=== PATIENT | female | born 1950 | race Caucasian/White ===

== ENCOUNTER → 2017-09-23 | Outpatient (CLI) | payer MEDICARE ==
--- NOTE | 2017-09-23 15:31 | XR ---
EXAMINATION TYPE: XR chest 2V DATE OF EXAM: 09/23/2017 COMPARISON: 09/16/2016 HISTORY: 67-year-old female cough and congestion for 3 years TECHNIQUE: Frontal and lateral views FINDINGS: The cardiomediastinal silhouette, aorta, and pulmonary vasculature are within normal limits. Mild dif fuse interstitial prominence and mild peribronchial cuffing is unchanged. Lungs and pleural spaces ar e clear. Surgical clips left upper quadrant. Spinal stimulator array centered along the mid thoracic spinal canal. IMPRESSION: Chronic-appearing changes, possible chronic bronchitis/asthma.
== END ==
LOC: CPPFTMAIN 12:05
PROVIDERS: ATTEND Internal Medicine
DX: R05 Cough (principal)
CPT/HCPCS: 71020; 94060; 94726; 94729

== ENCOUNTER → 2018-03-16 | Outpatient (CLI) | payer MEDICARE ==
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
--- NOTE | 2018-03-19 10:57 | MM ---
Reason for exam: screening (asymptomatic). Last mammogram was performed 20 years and 1 month ago. History: Patient is postmenopausal. Family history of breast cancer. Physical Findings: A clinical breast exam by your physician is recommended on an annual basis and results should be correlated with mammographic findings. MG 3D Screening Mammo W/Cad Bilateral CC and MLO view(s) were taken. No prior studies available for comparison. Finding: There is a 7 mm mass in the left breast consistent with lymph node. ASSESSMENT: Benign, BI-RAD 2 RECOMMENDATION: Routine screening mammogram of both breasts in 1 year.
== END | disposition home or self-care (01) ==
LOC: RADMAMWWP 09:33
PROVIDERS: ATTEND Internal Medicine
DX: Z12.31 Encounter for screening mammogram for malignant neoplasm of breast (principal); M85.851 Other specified disorders of bone density and structure, right thigh; Z78.0 Asymptomatic menopausal state
CPT/HCPCS: 77063; 77067; 77080

== ENCOUNTER 2018-04-01 19:49 | Emergency (ER) | payer MEDICARE ==
[2018-04-01 20:02] VITALS: TEMP 98.3
[2018-04-01] MEDS ORDERED: RX INFO: IV CONTRAST WAS GIVEN 1 EACH MISC MISCELLANE PRN (20:45)
[2018-04-01] MEDS ORDERED: MECLIZINE 12.5 MG TAB PO STA (20:46)
[2018-04-01] MEDS ORDERED: METOCLOPRAMIDE 5 MG/ML 2 ML VIAL IVP STA (20:46)
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
[2018-04-01 21:16] LABS: Basophils % (A) 0 %; Eosinophils # (A) 0.3 k/uL (0-0.7); Eosinophils % (A) 4 %; HGB 13.1 gm/dL (11.4-16.0); Lymphocytes # (A) 1.5 k/uL (1.0-4.8); Lymphocytes % (A) 24 %; MCH 32.5 pg (25.0-35.0); MCHC 35.4 g/dL (31.0-37.0); MCV 91.7 fL (80.0-100.0); Mean Platelet Volume 6.7; Monocytes # (A) 0.4 k/uL (0-1.0); Monocytes % (A) 6 %; Neutrophils % (A) 63 %; Platelet Count 262 k/uL (150-450); RBC 4.03 m/uL (3.80-5.40); RDW 12.8 % (11.5-15.5); WBC 6.3 k/uL (3.8-10.6)
[2018-04-01 21:19] LABS: Partial Thromboplastin Time 23.5 sec (22.0-30.0); Prothrombin Time 10.2 sec (9.0-12.0)
[2018-04-01 21:20] LABS: Albumin 4.5 g/dL (3.5-5.0); Calcium 9.5 mg/dL (8.4-10.2); Potassium 4.1 mmol/L (3.5-5.1); Total Bilirubin 0.6 mg/dL (0.2-1.3); Total Protein 7.1 g/dL (6.3-8.2)
[2018-04-01] MEDS ORDERED: SODIUM CHLORIDE 0.9% 500 ML IV STA (21:31)
[2018-04-01 21:51] VITALS: RESP 18
--- NOTE | 2018-04-01 22:35 | CT ---
EXAMINATION TYPE: CT brain wo con DATE OF EXAM: 04/01/2018 COMPARISON: NONE HISTORY: Vertigo. CT DLP: 1051.6 mGycm Automated exposure control for dose reduction was used. FINDINGS: There is mild cerebral cortical atrophy. There is no mass effect nor midline shift. There is no sign of intracranial hemorrhage. The calvarium is intact. IMPRESSION: NEGATIVE CT SCAN OF THE BRAIN. MINIMAL ATROPHY.
--- NOTE | 2018-04-01 22:44 | CT ---
EXAMINATION TYPE: CT angio head neck DATE OF EXAM: 04/01/2018 HISTORY: Vertigo. COMPARISON: NONE CT DLP: 238.1 mGycm. Automated Exposure Control for Dose Reduction was Utilized. TECHNIQUE: CTA scan of the neck and brain is performed with IV Contrast, patient injected with 65 mL of Isovue 370, axial images are obtained, coronal and sagittal reformatted images are reviewed. Thre e-D reconstructed images are created on an independent workstation and reviewed. FINDINGS: There is normal branching pattern of the great vessels on the aortic arch. There is arterial flow in the common internal and external carotid arteries bilaterally. Carotid artery bifurcations appear wid abdelrahman patent. There is arterial flow in both vertebral arteries which are fairly symmetric. There is no evidence of carotid dissection. Great vessels appear widely patent. There is arterial flow in the anterior middle and posterior cerebral arteries. There is arterial flow in the vertebrobasilar artery system. I see no evidence of aneurysm or neovascularity. There is no m ass effect. There is normal contrast opacification of the venous sinuses. There is no evidence of spa sm. I see no sign of hemodynamically significant stenosis. Ventricles of normal size. There is no you dence of any significant cerebral atrophy. The calvarium is intact. CONCLUSION: Normal CT angiogram of the brain. Normal CT angiogram of the neck.
[2018-04-01 23:07] VITALS: BP 136/78; PULSE 61
== END 2018-04-01 23:06 | disposition home or self-care (01) ==
LOC: EC 19:49
DX: R42 Dizziness and giddiness (principal); M79.7 Fibromyalgia; F41.9 Anxiety disorder, unspecified; F32.9 Major depressive disorder, single episode, unspecified; Z86.73 Personal history of transient ischemic attack (TIA), and cerebral infarction without residual deficits; Z79.899 Other long term (current) drug therapy; Z87.891 Personal history of nicotine dependence
CPT/HCPCS: 99284; 96374; 96361; 36415; 93005; 80053; 85025; 85610; 85730; 70496; 70450; 70498; J2765; Q9967

== ENCOUNTER → 2018-06-22 | Outpatient (CLI) | payer MEDICARE ==
--- NOTE | 2018-06-22 10:58 | CT ---
EXAMINATION TYPE: CT brain wo con DATE OF EXAM: 06/22/2018 COMPARISON: 04/01/2019 HISTORY: Headaches CT DLP: 999.80 mGycm Automated exposure control for dose reduction was used. FINDINGS: There is no acute intracranial hemorrhage or midline shift identified. There is diffuse ventricular a nd sulcal prominence consistent with diffuse age-related cerebral atrophy. No suspicious extra-axial fluid collection. There is low-attenuation in the periventricular white matter consistent with chroni c small vessel ischemic change. Punctate old right thalamic lacunar injury is seen on series 3 image 21. Old left cerebellar hemispheric lacunar injury is also seen on image 10. The globes are intact an d the visualized sinuses are clear. Lenses are surgically absent with scleral calcifications identif ied. IMPRESSION: 1. No acute intracranial hemorrhage or midline shift. 2. Mild diffuse age-related cerebral atrophy and scattered areas of hypoattenuation, most commonly on the basis of chronic microangiopathy. Old appearing lacunar injuries are also seen of the right thal amus and left cerebellar hemisphere.
== END | disposition home or self-care (01) ==
LOC: RADCTMAIN 09:14
PROVIDERS: ATTEND Internal Medicine
DX: G31.1 Senile degeneration of brain, not elsewhere classified (principal); I67.9 Cerebrovascular disease, unspecified
CPT/HCPCS: 70450

== ENCOUNTER → 2018-07-16 | Outpatient (CLI) | payer MEDICARE ==
[2018-07-16 09:24] LABS: Cholesterol 194 mg/dL (<200); Glucose 85 mg/dL (74-99); HDL Cholesterol 70 mg/dL (40-60); LDL Cholesterol,Calculated 102 mg/dL (0-99); Triglycerides 112 mg/dL (<150)
[2018-07-16 21:37] LABS: Hemoglobin A1C 4.8 % (4.0-6.0)
== END | disposition home or self-care (01) ==
LOC: LABWHC1 08:48
PROVIDERS: ATTEND Internal Medicine
DX: E78.5 Hyperlipidemia, unspecified (principal); R42 Dizziness and giddiness; R63.1 Polydipsia
CPT/HCPCS: 36415; 80061; 82947; 83036

== ENCOUNTER 2019-06-02 10:40 | Emergency (ER) | payer MEDICARE ==
[2019-06-02] MEDS ORDERED: MECLIZINE 12.5 MG TAB PO STA (11:25)
[2019-06-02] MEDS ORDERED: SODIUM CHLORIDE 0.9% 1,000 ML IV STA (11:25)
[2019-06-02] MEDS ORDERED: diphenhydrAMINE 50 MG/ML 1 ML VIAL IVP STA (11:28)
[2019-06-02] MEDS ORDERED: METOCLOPRAMIDE 5 MG/ML 2 ML VIAL IVP STA (11:28)
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
[2019-06-02 12:14] LABS: Basophils % (A) 0 %; Eosinophils # (A) 0.2 k/uL (0-0.7); Eosinophils % (A) 3 %; HCT 37.8 % (34.0-46.0); HGB 13.4 gm/dL (11.4-16.0); Lymphocytes # (A) 1.2 k/uL (1.0-4.8); Lymphocytes % (A) 25 %; MCH 31.9 pg (25.0-35.0); MCHC 35.6 g/dL (31.0-37.0); MCV 89.7 fL (80.0-100.0); Monocytes # (A) 0.3 k/uL (0-1.0); Monocytes % (A) 7 %; Neutrophils % (A) 62 %; Platelet Count 239 k/uL (150-450); RBC 4.21 m/uL (3.80-5.40); RDW 15.2 % (11.5-15.5); WBC 4.9 k/uL (3.8-10.6)
[2019-06-02 12:22] LABS: ALT 18 U/L (9-52); AST 33 U/L (14-36); African American GFR (CKD) >90 (>60 ml/min/1.73 sqM); Albumin 4.6 g/dL (3.5-5.0); Alkaline Phosphatase 109 U/L (38-126); Anion Gap 11 mmol/L; Blood Urea Nitrogen 14 mg/dL (7-17); Calcium 9.3 mg/dL (8.4-10.2); Carbon Dioxide 23 mmol/L (22-30); Chloride 104 mmol/L (98-107); Glucose 90 mg/dL (74-99); Potassium 3.9 mmol/L (3.5-5.1); Sodium 138 mmol/L (137-145); Total Bilirubin 0.5 mg/dL (0.2-1.3); Total Protein 7.5 g/dL (6.3-8.2)
--- NOTE | 2019-06-02 12:23 | CT ---
EXAMINATION TYPE: CT brain wo con DATE OF EXAM: 06/02/2019 COMPARISON: June 22, 2018 HISTORY: Headache, dizziness CT DLP: 1099.[address] of the brain was performed. The ventricles, basal cisterns and sulci overlying the cerebral convexities demonstrate mild enlargem ent. There is no evidence for intracranial hemorrhage or sulcal effacement. There is decreased attenuation about the periventricular white matter and deep white matter of both c erebral hemispheres, compatible with chronic small vessel ischemia. Differential diagnosis does inclu de demyelination. No mass effects are seen.No midline shift. Osseous calvarium is intact. If symptoms persist consider MRI. IMPRESSION: 1. Age related atrophic and chronic small vessel ischemic change without acute intracranial process s een at this time.
[2019-06-02 12:30] LABS: INR 0.9 (<1.2); Partial Thromboplastin Time 28.1 sec (22.0-30.0); Prothrombin Time 9.8 sec (9.0-12.0)
[2019-06-02 12:31] LABS: Appearance,Urine Clear (Clear); Bacteria,Urine Rare /hpf; Bilirubin,Urine Negative (Negative); Blood,Urine Negative (Negative); Color,Urine Light Yellow; Glucose,Urine (UA) Negative (Negative); Hyaline Casts,Urine 1 /lpf (0-2); Ketones,Urine Negative (Negative); Leukocyte Esterase,Urine Small (Negative); Mucus,Urine Rare /hpf; Nitrite,Urine Negative (Negative); PH, Urine 6.5 (5.0-8.0); Protein,Urine Negative (Negative); RBC,Urine 1 /hpf (0-5); Specific Gravity,Urine 1.008 (1.001-1.035); Squamous Epithelial Cell,Urine <1 /hpf (0-4); Urobilinogen,Urine <2.0 mg/dL (<2.0); WBC,Urine 2 /hpf (0-5)
--- NOTE | 2019-06-02 12:54 | XR ---
EXAMINATION TYPE: XR chest 2V DATE OF EXAM: 06/02/2019 COMPARISON: 09/23/2017 INDICATION: Dizziness and headache TECHNIQUE: Frontal and lateral views of the chest are obtained. FINDINGS: The heart size is normal. The pulmonary vasculature is normal. The lungs are clear. Stimulator leads are within the mid thoracic level. IMPRESSION: 1. No acute pulmonary process.
[2019-06-02 13:23] VITALS: RESP 18; TEMP 97.9
[2019-06-02] MEDS ORDERED: KETOROLAC 30 MG/ML 1 ML VIAL IVP STA (13:35)
[2019-06-02] MEDS ORDERED: ORPHENADRINE 30 MG/ML 2 ML VIAL IVP STA (13:35)
[2019-06-02 15:20] VITALS: BP 138/87; PULSE 91
== END 2019-06-02 15:18 | disposition home or self-care (01) ==
LOC: EC 10:40
DX: G43.909 Migraine, unspecified, not intractable, without status migrainosus (principal); R42 Dizziness and giddiness; R05 Cough; R53.1 Weakness; M79.7 Fibromyalgia; M19.90 Unspecified osteoarthritis, unspecified site; F41.9 Anxiety disorder, unspecified; F32.9 Major depressive disorder, single episode, unspecified; G89.4 Chronic pain syndrome; Z86.73 Personal history of transient ischemic attack (TIA), and cerebral infarction without residual deficits; Z87.828 Personal history of other (healed) physical injury and trauma; Z87.891 Personal history of nicotine dependence; Z90.49 Acquired absence of other specified parts of digestive tract; Z96.642 Presence of left artificial hip joint; Z96.653 Presence of artificial knee joint, bilateral; Z98.51 Tubal ligation status; Z98.890 Other specified postprocedural states; Z79.1 Long term (current) use of non-steroidal anti-inflammatories (NSAID); Z79.899 Other long term (current) drug therapy
CPT/HCPCS: 36415; 93005; 80053; 84484; 85025; 85610; 85730; 81001; 71046; 70450; 99285; 96374; 96375 ×3; 96361; J1200; J2360; J2765; J1885

== ENCOUNTER 2020-03-29 12:54 | Observation (INO) | payer MEDICARE ==
[2020-03-29 13:25] LABS: Basophils # (A) 0.1 k/uL (0-0.2); Basophils % (A) 1 %; Eosinophils # (A) 0.1 k/uL (0-0.7); Eosinophils % (A) 2 %; HCT 41.6 % (34.0-46.0); HGB 14.5 gm/dL (11.4-16.0); Lymphocytes # (A) 1.6 k/uL (1.0-4.8); Lymphocytes % (A) 24 %; MCH 32.2 pg (25.0-35.0); MCHC 34.8 g/dL (31.0-37.0); MCV 92.6 fL (80.0-100.0); Mean Platelet Volume 7.3; Monocytes # (A) 0.4 k/uL (0-1.0); Monocytes % (A) 6 %; Neutrophils # (A) 4.5 k/uL (1.3-7.7); Neutrophils % (A) 66 %; Platelet Count 316 k/uL (150-450); RBC 4.49 m/uL (3.80-5.40); RDW 13.1 % (11.5-15.5); WBC 6.8 k/uL (3.8-10.6)
[2020-03-29 13:28] LABS: Calcium 9.4 mg/dL (8.4-10.2); Magnesium 2.1 mg/dL (1.6-2.3); Potassium 4.6 mmol/L (3.5-5.1); Total Bilirubin 0.5 mg/dL (0.2-1.3); Total Protein 8.3 g/dL (6.3-8.2)
[2020-03-29 13:41] LABS: D-Dimer 0.48 mg/L FEU (<0.60); INR 0.9 (<1.2); Prothrombin Time 9.6 sec (9.0-12.0)
[2020-03-29 13:44] LABS: Partial Thromboplastin Time 21.7 sec (22.0-30.0)
[2020-03-29] MEDS ORDERED: NITROGLYCERIN SL TABS 0.4 MG TAB SUBLINGUAL STA (14:34)
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
--- NOTE | 2020-03-29 15:24 | CT ---
CT CHEST FOR PULMONARY EMBOLISM. EXAMINATION TYPE: CT chest angio for PE DATE OF EXAM: 03/29/2020 INDICATION: CHEST AND BACK PAIN CT DLP: 327.4 mGycm, Automated exposure control for dose reduction was used. CONTRAST: Patient injected with 60 mL of Isovue 370. COMPARISON: None TECHNIQUE: CT of the chest is performed on a spiral scan at 2 mm thick sections. Study is performed with intravenous contrast timed for evaluation for pulmonary embolism. This will limit additional po rtions of the evaluation. 3-D MIP images reconstructed by the technologist are reviewed on the compu ter in the coronal and sagittal planes. FINDINGS: No persistent filling defects are evident to suggest an acute pulmonary embolism. No mediastinal or hilar adenopathy enlarged by CT criteria is evident. The ascending aorta diameter at the level of the main pulmonary artery is 3.7 cm. The main pulmonary artery diameter at the bifur cation is 2.0 cm. Small hiatal hernia is present. Lung windows are clear. Limited CT section through the upper abdomen are unremarkable. IMPRESSIONS: 1. No acute pulmonary embolism.
[2020-03-29] MEDS ORDERED: NITROGLYCERIN-D5W PMX 50 MG in DEXTROSE/WATER 1 250ML.BAG IV ONE (15:47)
[2020-03-29] MEDS ORDERED: ACETAMINOPHEN TAB 325 MG TAB PO STA (15:47)
[2020-03-29] MEDS ORDERED: NALOXONE 0.4 MG/ML 1 ML VIAL IV PRN (15:48)
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
[2020-03-29] MEDS ORDERED: ACETAMINOPHEN TAB 325 MG TAB PO PRN (20:09)
[2020-03-29] MEDS: amLODIPine 5 MG TAB PO SCH (20:20)
[2020-03-29] MEDS: ALPRAZolam 0.5 MG TAB PO SCH (21:32)
[2020-03-29] MEDS: MELOXICAM 7.5 MG TAB PO SCH (21:32)
[2020-03-29] MEDS: PANTOPRAZOLE 40 MG TABLET PO SCH (21:32)
[2020-03-29] MEDS: DULoxetine HCL 60 MG CAPSULE.DR PO SCH (21:32)
[2020-03-29] MEDS: BACLOFEN 10 MG TAB PO PRN (21:34)
[2020-03-29] MEDS: MORPHINE SULFATE 2 MG/ML SYRINGE IVP PRN (23:41)
[2020-03-30] MEDS: MORPHINE SULFATE 2 MG/ML SYRINGE IVP PRN ×4 (03:12→22:15)
[2020-03-30 06:42] LABS: Basophils # (A) 0.1 k/uL (0-0.2); Basophils % (A) 1 %; Eosinophils # (A) 0.2 k/uL (0-0.7); Eosinophils % (A) 4 %; HCT 36.2 % (34.0-46.0); HGB 12.3 gm/dL (11.4-16.0); Lymphocytes # (A) 1.9 k/uL (1.0-4.8); Lymphocytes % (A) 35 %; MCV 94.1 fL (80.0-100.0); Mean Platelet Volume 7.5; Monocytes # (A) 0.4 k/uL (0-1.0); Monocytes % (A) 6 %; Neutrophils # (A) 2.8 k/uL (1.3-7.7); Neutrophils % (A) 51 %; Platelet Count 242 k/uL (150-450); RBC 3.85 m/uL (3.80-5.40); RDW 12.8 % (11.5-15.5); WBC 5.5 k/uL (3.8-10.6)
[2020-03-30 06:57] LABS: Calcium 9.1 mg/dL (8.4-10.2); Potassium 4.4 mmol/L (3.5-5.1)
--- NOTE | 2020-03-30 10:16 | CONS ---
CONSULTATION CHIEF COMPLAINT: Chest pain. Cheri is a 70-year-old lady with history of hypertension, arthritis, chronic pain, who presented to hospital complaining of headache. She has had chronic headache and has seen Dr. Hassan in the outpatient setup. She states that she simply feels fatigued tired and does not feel good. In all this, she also had sharp precordial chest pain that radiated to her back. It was associated with diaphoresis and related exertion mild intensity and seems musculoskeletal. Since being admitted to the hospital, she is feeling better. She had a CTA of the chest that was negative for pulmonary embolism. Her EKG shows sinus rhythm without significant ST-T wave changes. She has had 3 sets of cardiac enzymes that were all negative. PAST MEDICAL HISTORY: Significant for hypertension and GERD. CURRENT MEDICATIONS: Include Xanax, Celebrex, Cymbalta, Norvasc, baclofen, and omeprazole. FAMILY HISTORY: Negative for premature coronary artery disease. SOCIAL HISTORY: Negative for current smoking, ETOH or drug abuse. REVIEW OF SYSTEMS: HEENT is unremarkable. CARDIAC as described above. RESPIRATORY as described above. GI negative. negative. ALLERGY none. SKIN negative. MUSCULOSKELETAL: Significant for arthritis. PSYCHOSOCIAL negative. ENDOCRINE negative. DERM negative. CONSTITUTIONAL negative. ONCOLOGICAL negative. SENIOR ERP CONSULTANT negative. Rest of the system review is not relevant. PHYSICAL EXAMINATION: On exam, patient is comfortable at rest. Vital signs are stable. There is no jugular venous distention. Carotid upstroke is normal. There is no bruit. Chest exam reveals good air entry bilaterally. Heart exam reveals first and second heart sounds. No gallop. No murmur. No rub. Abdomen is soft, nontender. Extremities did not reveal edema. Peripheral pulses are felt. LAB: Show a hemoglobin of 12.3, platelet count is 240. Potassium is 4.4, creatinine is 0.86. ASSESSMENT: 1. Precordial chest pain. 2. Hypertension. 3. Headache. 4. Fibromyalgia. PLAN: The patient ruled out for myocardial infarction. Her chest pain is atypical. I will obtain a 2D echo and if this looks normal, she can be discharged home and I will perform an outpatient stress test on her once the headache resolves. Thank you for giving me the privilege to participate in the care of this pleasant lady. MMODL / IJN: [id number] /
[2020-03-30] MEDS ORDERED: ALPRAZolam 0.5 MG TAB PO PRN (10:50)
--- NOTE | 2020-03-30 11:07 | P.PN ---
Subjective Progress Note Date: 03/30/20 Principal diagnosis: Chest pain Patient was seen and examined. No acute events overnight. Patient reports pressure-like sensation in her chest. Stabbing chest pain now resolved with morphine. Patient reports frontal headache that is slowly getting better after discontinuation of nitroglycerin drip. Patient also reports intense fatigue and lower extremity swelling that has been getting worse over the past few months. She reports worsening anxiety. Patient reports a history of hypothyroidism the past for which she was taking medications many years ago. Objective - Vital Signs Vital signs: Vital Signs Temp 98.1 F 03/30/20 07:45 Pulse 80 03/30/20 07:45 Resp 16 03/30/20 07:45 BP 117/70 03/30/20 07:45 Pulse Ox 96 03/30/20 07:45 Intake & Output 03/29/20 03/30/20 03/30/20 18:59 06:59 18:59 Intake Total 310 240 Balance 310 240 Weight 90.265 kg 90.3 kg Intake: IV 10 Invasive Line 2 10 Oral 300 240 Other: Voiding Method Toilet Toilet # Voids 0 1 1 # Bowel Movements 0 - Exam General: [non toxic], [no distress], [appears at stated age] Derm: [warm], [dry] Head: [atraumatic], [normocephalic], [symmetric] Eyes: [EOMI], [no lid lag], [anicteric sclera] Mouth: [no lip lesion], [mucus membranes moist] Cardiovascular: [S1S2 reg], [no murmur], [positive DP pulse bilateral], Lungs: [CTA bilateral], [no rhonchi, no rales] , [no accessory muscle use] Abdominal: [soft], [ nontender to palpation], [no guarding], [no appreciable organomegaly] Ext: [no gross muscle atrophy], [no edema], [no contractures] Neuro: [no focal neuro deficits] Psych: [Alert], [oriented], [appropriate affect] - Labs CBC & Chem 7: 03/30/20 06:04 03/30/20 06:04 Labs: Abnormal Lab Results - Last 24 Hours (Table) 03/29/20 03/29/20 03/30/20 Range/Units 13:11 13:11 06:04 APTT 21.7 L (22.0-30.0) sec Sodium 135 L 132 L (137-145) mmol/L BUN 22 H 23 H (7-17) mg/dL Total Protein 8.3 H (6.3-8.2) g/dL Assessment and Plan Assessment: Chest pain, atypical, rule out acute coronary syndrome Fatigue History of TIA Hypertension Fibromyalgia Anxiety and depression Obesity Troponin less than 0.012 x3 with EKG showing normal sinus rhythm. CT chest ruled out PE. Atypical for cardiac pain. BETSY risk score of 2. Plans: Nitroglycerin drip discontinued. ACS ruled out. Cardiac diet. Follow-up echocardiogram. Telemetry monitoring. Cardiology recommended stress test outpatient setting. In the setting of fibromyalgia. Exertional. Also history of hypothyroidism. Plans: Follow echocardiogram. Follow TSH. Not on aspirin due to history of GI bleed. Plans: Follow lipid panel. Follow A1c. BP 117/70. Plans: Continue amlodipine. Monitor vitals, adjust medications as necessary. Plans: Continue Cymbalta and baclofen as needed. Plans: Increase Xanax dosing to 3 times a day as needed. Plans: Patient would benefit from a structured weight loss program. [Patient with continued chest pain. Plans for echocardiogram. Continue telemetry monitoring. She is pending clinical improvement. Likely DC in 1-2 days.]
[2020-03-30 11:51] LABS: Cholesterol 170 mg/dL (<200); HDL Cholesterol 56 mg/dL (40-60); LDL Cholesterol,Calculated 83 mg/dL (0-99); Triglycerides 154 mg/dL (<150)
[2020-03-30 12:20] LABS: Appearance,Urine Clear (Clear); Bacteria,Urine Rare /hpf; Bilirubin,Urine Negative (Negative); Blood,Urine Negative (Negative); Color,Urine Light Yellow; Glucose,Urine (UA) Negative (Negative); Ketones,Urine Negative (Negative); Leukocyte Esterase,Urine Small (Negative); Nitrite,Urine Negative (Negative); Protein,Urine Negative (Negative); RBC,Urine 1 /hpf (0-5); Specific Gravity,Urine 1.013 (1.001-1.035); Squamous Epithelial Cell,Urine <1 /hpf (0-4); Urobilinogen,Urine <2.0 mg/dL (<2.0); WBC,Urine 1 /hpf (0-5)
[2020-03-30] MEDS: ALPRAZolam 0.5 MG TAB PO SCH (21:15)
[2020-03-30] MEDS: DULoxetine HCL 60 MG CAPSULE.DR PO SCH (21:16)
[2020-03-30] MEDS: PANTOPRAZOLE 40 MG TABLET PO SCH (21:16)
[2020-03-30] MEDS: MELOXICAM 7.5 MG TAB PO SCH (21:16)
[2020-03-30] MEDS: amLODIPine 5 MG TAB PO SCH (21:16)
[2020-03-30] MEDS: BACLOFEN 10 MG TAB PO PRN (21:18)
[2020-03-30 22:33] LABS: Hemoglobin A1C 5.2 % (4.0-6.0)
[2020-03-30 23:16] VITALS: RESP 16; TEMP 98
[2020-03-31 08:56] VITALS: BP 136/95; PULSE 94
--- NOTE | 2020-03-31 10:43 | ECHOF ---
Referral Reason: MEASUREMENTS -------- HEIGHT: 170.2 cm WEIGHT: 90.3 kg BP: 104/68 RVIDd: 2.4 cm (< 3.3) IVSd: 1.0 cm (0.6 - 1.1) LVIDd: 4.0 cm (3.9 - 5.3) LVPWd: 1.0 cm (0.6 - 1.1) IVSs: 1.8 cm LVIDs: 2.4 cm LVPWs: 1.5 cm LA Diam: 3.7 cm (2.7 - 3.8) LAESV Index (A-L): 26.30 ml/m Ao Diam: 3.2 cm (2.0 - 3.7) AV Cusp: 2.1 cm (1.5 - 2.6) MV EXCURSION: 17.007 mm (> 18.000) MV EF SLOPE: 39 mm/s (70 - 150) EPSS: 0.9 cm MV E Raffi: 0.90 m/s MV DecT: 179 ms MV A Raffi: 0.75 m/s MV E/A Ratio: 1.20 AR PHT: 499 ms RAP: 5.00 mmHg RVSP: 24.56 mmHg FINDINGS -------- Sinus rhythm. This was a technically adequate study. The left ventricular size is normal. Left ventricular wall thickness is normal. Overall left vent ricular systolic function is normal with, an EF between 60 - 65 %. The right ventricle is normal in size. Normal LA size by volume 22+/-6 ml/m2. The right atrium is normal in size. Interatrial and interventricular septum intact. The aortic valve is trileaflet and appears structurally normal. The mitral valve is normal. Mild tricuspid regurgitation present. Right ventricular systolic pressure is normal at < 35 mmHg. The pulmonic valve was not well visualized. The aortic root size is normal. Normal inferior vena cava with normal inspiratory collapse consistent with estimated right atrial pre ssure of 5 mmHg. There is no pericardial effusion. CONCLUSIONS -------- 1. Sinus rhythm. 2. This was a technically adequate study. 3. The left ventricular size is normal. 4. Left ventricular wall thickness is normal. 5. Overall left ventricular systolic function is normal with, an EF between 60 - 65 %. 6. The right ventricle is normal in size. 7. Normal LA size by volume 22+/-6 ml/m2. 8. The right atrium is normal in size. 9. Interatrial and interventricular septum intact. 10. The aortic valve is trileaflet and appears structurally normal. 11. The mitral valve is normal. 12. Mild tricuspid regurgitation present. 13. Right ventricular systolic pressure is normal at < 35 mmHg. 14. The pulmonic valve was not well visualized. 15. The aortic root size is normal. 16. Normal inferior vena cava with normal inspiratory collapse consistent with estimated right atrial pressure of 5 mmHg. 17. There is no pericardial effusion. TRIMMER HAND: Beth Miller RDCS
--- NOTE | 2020-03-31 11:08 | P.PN ---
Subjective Progress Note Date: 03/31/20 This is a 70-year-old female with documented history of hypertension, arthritis, chronic pain, who presented to the hospital with symptoms of chest discomfort, she also had significant headaches. She was seen in consultation yesterday by Dr. Simpson, an echocardiogram with Doppler study was ordered, revealed a normal left ventricular systolic function. Blood pressure 136/90, heart rate in the 60s, 95% on room air. She still complains of a mild headache this morning, denies any chest discomfort. Objective - Vital Signs Vital signs: Vital Signs Temp 98.0 F 03/31/20 04:00 Pulse 94 03/31/20 08:00 Resp 16 03/31/20 08:00 BP 136/95 03/31/20 08:00 Pulse Ox 95 03/31/20 04:00 Intake & Output 03/30/20 03/31/20 03/31/20 18:59 06:59 18:59 Intake Total 980 310 240 Output Total 111 Balance 869 310 240 Weight 90.1 kg Intake: IV 10 Invasive Line 3 10 Intake, IV Titration 100 Amount cefTRIAXone 1 gm In 100 Sodium Chloride 0.9% 50 ml @ 100 mls/hr IVPB ONCE STA Rx#:[id number] Oral 880 300 240 Output: Post Void Residual 111 Other: Voiding Method Toilet Toilet # Voids 1 1 1 # Bowel Movements 0 0 - Exam PHYSICAL EXAMINATION: GENERAL: 70-year-old female in no acute distress at the time of my examination HEENT: Head is atraumatic, normocephalic. Pupils equal, round. Sclera anicteric. Conjunctiva are clear. Mucous membranes of the mouth are moist. Neck is supple. There is no elevated jugular venous pressure. No carotid bruit is heard. Does complain of mild headache this morning. HEART EXAMINATION: Heart S1, S2 normal. No murmur or gallop heard. CHEST EXAMINATION: Lungs are clear to auscultation and precussion. No chest wall tenderness is noted on palpation or with deep breathing. ABDOMEN: Soft, nontender. Bowel sounds are heard. No organomegaly noted. EXTREMITIES: 2+ peripheral pulses with no evidence of peripheral edema and no calf tenderness noted. NEUROLOGIC patient is awake, alert and oriented 3 . . - Labs CBC & Chem 7: 03/30/20 06:04 03/30/20 06:04 Labs: Abnormal Lab Results - Last 24 Hours (Table) 03/30/20 03/30/20 Range/Units 06:04 11:40 Triglycerides 154 H (<150) mg/dL Ur Leukocyte Esterase Small H (Negative) Urine Bacteria Rare H (None) /hpf Assessment and Plan Plan: Assessment and plan #1 precordial chest pain, negative troponins 3. EKG did not reveal any acute changes. Echocardiogram with Doppler study revealed a normal left ventricular systolic function. #2 hypertension #3 headache #4 fibromyalgia Plan Echocardiogram with Doppler study revealed a normal left ventricular systolic function. From cardiology's perspective, the patient may be able to be discharged home, follow-up in the office as an outpatient, outpatient stress testing once the headache has resolved. DNP note has been reviewed, I agree with a documented findings and plan of care. Patient was seen and examined.
--- NOTE | 2020-03-31 11:50 | P.DS ---
Providers Date of admission: 03/29/20 15:48 Expected date of discharge: 03/31/20 Attending physician: Catalina Gasca MD Consults: 03/29/20 15:49 Consult Physician Urgent Consulting Provider: [facility] Consult Reason/Comments: acute chest pain, possible acs Do you want consulting provider notified?: Yes Primary care physician: [facility] Course: 70-year-old female with PMH of hypertension presents the ED for chest pain. Patient states that she was eating dinner last night when she experienced the sudden onset of chest pain. Chest pain was midsternal, sharp and stabbing in nature, radiating through the back into the left shoulder blade. Patient reports the pain was constant. The pain was associated with some shortness of breath. She denies any diaphoresis, nausea or vomiting or palpitations. When the pain persisted into this morning, this prompted the patient to come to ED. She was given nitroglycerin by EMS which improved her pain. Patient currently reports headache that started in the ED, states that this could be related to nitroglycerin drip. Patient also reports swelling in her lower extremities, left greater than right. She denies any fever or chills, cough, changes in urination or bowel habits. No changes in appetite or weight. She denies any dizziness, numbness/weakness/tingling of the extremities. In the ED, her vital signs were stable. CBC was unremarkable. INR was 0.9. CMP showed sodium of 135, BUN 22. Troponin was less than 0.012, EKG showing normal sinus rhythm. Lipase was negative. CTA chest rules out PE or dissection. Patient is admitted for chest pain, rule out acute coronary syndrome, cardiology consultation. Troponin was less than 0.0123 with EKG showing normal sinus rhythm. Her BETSY risk score was 2. ACS was ruled out. Nitroglycerin drip was discontinued the following day. Cardiology was consulted and recommended echocardiogram. Echocardiogram was within normal limits. Cardiology recommended outpatient follow-up for possible stress test. Patient complained of fatigue which could have been related to her fibromyalgia. TSH was within normal limits. Lipid panel showed elevated triglyceride of 154. Otherwise, her home medications were resumed. Urinalysis was done which showed small leukocyte esterase and 1 WBC. Patient denied any dysuria or abdominal discomfort during hospitalization. Patient was seen and examined. No acute events overnight. Patient reports complete resolution of her chest pain. She denies any chest pain, shortness breath or palpitations. No nausea or vomiting. No fever or chills. General: [non toxic], [no distress], [appears at stated age] Derm: [warm], [dry] Head: [atraumatic], [normocephalic], [symmetric] Eyes: [EOMI], [no lid lag], [anicteric sclera] Mouth: [no lip lesion], [mucus membranes moist] Cardiovascular: [S1S2 reg], [no murmur], [positive DP pulse bilateral], Lungs: [CTA bilateral], [no rhonchi, no rales] , [no accessory muscle use] Abdominal: [soft], [ nontender to palpation], [no guarding], [no appreciable organomegaly] Ext: [no gross muscle atrophy], [no edema], [no contractures] Neuro: [no focal neuro deficits] Psych: [Alert], [oriented], [appropriate affect] Chest pain, atypical, rule out acute coronary syndrome Fatigue History of TIA Hypertension Fibromyalgia Anxiety and depression Obesity Troponin less than 0.012 x3 with EKG showing normal sinus rhythm. CT chest ruled out PE. Atypical for cardiac pain. BETSY risk score of 2. Echocardiogram within normal limits. Plans: Nitroglycerin drip discontinued. ACS ruled out. Cardiac diet. Telemetry monitoring. Cardiology recommended stress test outpatient setting. In the setting of fibromyalgia. Exertional. Also history of hypothyroidism. TSH within normal limits. Plans: Follow-up with PCP. Not on aspirin due to history of GI bleed. A1c within normal limits. Lipid panel shows elevated triglyceride of 154. Plans: Follow-up with PCP. BP 136/95. Plans: Continue amlodipine. Monitor vitals, adjust medications as necessary. Plans: Continue Cymbalta and baclofen as needed. Plans: Continue Xanax at home dose. Plans: Patient would benefit from a structured weight loss program. [Patient has complete resolution of chest pain. ACS ruled out. Echocardiogram within normal limits. Cardiology cleared for discharge. Follow-up with PCP within 2 days of discharge. Plans for outpatient stress test, to be scheduled by PCP.] Pertinent Studies: Chest CTA, echocardiogram Patient Condition at Discharge: Stable Plan - Discharge Summary Discharge Rx Participant: No New Discharge Prescriptions: New ALPRAZolam [Xanax] 0.5 mg PO HS #30 tab Continue DULoxetine HCL [Cymbalta] 60 mg PO HS Celecoxib [CeleBREX] 200 mg PO HS Baclofen 10 mg PO BID PRN PRN Reason: Muscle Spasm amLODIPine [Norvasc] 5 mg PO HS ALPRAZolam [Xanax] 0.5 mg PO HS Omeprazole 20 mg PO HS Discharge Medication List DULoxetine HCL [Cymbalta] 60 mg PO HS 09/18/16 [History] Celecoxib [CeleBREX] 200 mg PO HS 04/01/18 [History] ALPRAZolam [Xanax] 0.5 mg PO HS 03/29/20 [History] Baclofen 10 mg PO BID PRN 03/29/20 [History] Omeprazole 20 mg PO HS 03/29/20 [History] amLODIPine [Norvasc] 5 mg PO HS 03/29/20 [History] ALPRAZolam [Xanax] 0.5 mg PO HS #30 tab 03/31/20 [Rx] Follow up Appointment(s)/Referral(s): John Hogue MD [Primary Care Provider] - 1-2 days Activity/Diet/Wound Care/Special Instructions: FU PCP within 3 days of DC. Note for PCP: Order stress test Echocardiogram within normal limits. Discharge Disposition: HOME SELF-CARE
== END 2020-03-31 12:35 | disposition home or self-care (01) ==
LOC: EC 12:54 → 3SCARD 15:48
PROVIDERS: ADMIT Family Medicine; ATTEND Family Medicine
DX: R07.2 Precordial pain (principal); G43.909 Migraine, unspecified, not intractable, without status migrainosus; R61 Generalized hyperhidrosis; I10 Essential (primary) hypertension; K21.9 Gastro-esophageal reflux disease without esophagitis; R53.83 Other fatigue; M79.89 Other specified soft tissue disorders; I69.354 Hemiplegia and hemiparesis following cerebral infarction affecting left non-dominant side; M79.7 Fibromyalgia; F41.9 Anxiety disorder, unspecified; F32.9 Major depressive disorder, single episode, unspecified; E03.9 Hypothyroidism, unspecified; M19.90 Unspecified osteoarthritis, unspecified site; G89.4 Chronic pain syndrome; E66.9 Obesity, unspecified; Z68.31 Body mass index [BMI] 31.0-31.9, adult; Z98.890 Other specified postprocedural states; Z90.49 Acquired absence of other specified parts of digestive tract; Z98.51 Tubal ligation status; Z96.653 Presence of artificial knee joint, bilateral; Z96.642 Presence of left artificial hip joint; Z98.49 Cataract extraction status, unspecified eye; Z98.1 Arthrodesis status; Z96.82 Presence of neurostimulator; Z87.891 Personal history of nicotine dependence; F40.240 Claustrophobia; Z82.0 Family history of epilepsy and other diseases of the nervous system; Z83.3 Family history of diabetes mellitus; Z82.49 Family history of ischemic heart disease and other diseases of the circulatory system; Z83.6 Family history of other diseases of the respiratory system; Z84.1 Family history of disorders of kidney and ureter; Z83.518 Family history of other specified eye disorder; Z80.8 Family history of malignant neoplasm of other organs or systems; Z79.1 Long term (current) use of non-steroidal anti-inflammatories (NSAID); Z79.899 Other long term (current) drug therapy
CPT/HCPCS: 96376; 96366; 96375 ×2; 96365; 99291; 36415; 93005; 93306; 85379; 80061; 80053; 80048; 84443; 83690; 83735; 84484 ×2; 85025 ×2; 85610; 85730; 81001; 83036; 87635; 71275; G0378 ×3; J0696; J2270 ×2; Q9967

== ENCOUNTER → 2020-09-20 | Outpatient (CLI) | payer MEDICARE ==
[2020-09-20 13:16] LABS: Basophils # (A) 0.1 k/uL (0-0.2); Basophils % (A) 1 %; Eosinophils # (A) 0.3 k/uL (0-0.7); Eosinophils % (A) 5 %; HGB 14.3 gm/dL (11.4-16.0); Lymphocytes # (A) 1.3 k/uL (1.0-4.8); Lymphocytes % (A) 25 %; MCH 31.3 pg (25.0-35.0); MCHC 32.5 g/dL (31.0-37.0); MCV 96.2 fL (80.0-100.0); Mean Platelet Volume 7.5; Monocytes # (A) 0.4 k/uL (0-1.0); Monocytes % (A) 7 %; Neutrophils # (A) 3.2 k/uL (1.3-7.7); Neutrophils % (A) 60 %; Platelet Count 286 k/uL (150-450); RBC 4.57 m/uL (3.80-5.40); RDW 12.9 % (11.5-15.5); WBC 5.3 k/uL (3.8-10.6)
[2020-09-20 21:57] LABS: Albumin 4.7 g/dL (3.80-4.90); Albumin/Globulin Ratio 1.88 (1.60-3.17); Anion Gap 10.2 mmol/L (4.00-12.00); Calcium 9.5 mg/dL (8.7-10.3); Carbon Dioxide 23.8 mmol/L (21.6-31.8); Chol/HDL Ratio 2.68; Globulin 2.5 g/dL (1.6-3.3); LDL Cholesterol,Calculated 90.4 mg/dL (0.0-131.0); Non-African American GFR(CKD) 63.9 (60.0-200.0); Potassium 4.6 mmol/L (3.5-5.5); Total Bilirubin 0.7 mg/dL (0.2-1.2); Total Protein 7.2 g/dL (6.2-8.2); VLDL Calculation 20.6 mg/dL (5.00-40.00)
== END | disposition home or self-care (01) ==
LOC: LABWHC1 10:58
PROVIDERS: ATTEND Family Medicine
DX: I10 Essential (primary) hypertension (principal); F41.9 Anxiety disorder, unspecified; M79.7 Fibromyalgia
CPT/HCPCS: 36415; 80053; 80061; 85025

== ENCOUNTER → 2020-10-25 | Outpatient (CLI) | payer MEDICARE ==
[2020-10-25 22:08] LABS: Ferritin 42.7 ng/mL (10.0-291.0)
== END | disposition home or self-care (01) ==
LOC: LABWHC1 11:30
PROVIDERS: ATTEND Psychiatry & Neurology Neurology
DX: E61.1 Iron deficiency (principal); G25.81 Restless legs syndrome
CPT/HCPCS: 36415; 82728; 83540

== ENCOUNTER → 2021-01-18 | Outpatient (CLI) | payer MEDICARE ==
--- NOTE | 2021-01-18 13:45 | XR ---
EXAMINATION TYPE: XR chest 2V DATE OF EXAM: 01/18/2021 COMPARISON: Chest x-ray June 02, 2019 HISTORY: hx of covid pneumonia in nov. Shortness of breath on walking. TECHNIQUE: Frontal and lateral views of the chest are obtained. FINDINGS: There is mild chronic emphysematous and parenchymal changes bilaterally without suspicious new focal air space opacity, pleural effusion, or pneumothorax seen. The cardiac silhouette size is stable areas within normal limits. Spinal stimulator device in the mid to lower thoracic spinal dayanna l redemonstrated. Surgical clips epigastric region redemonstrated. Cholecystectomy clips partially im aged on lateral view. IMPRESSION: Chronic changes without acute pulmonary process.
[2021-01-18 23:39] LABS: Basophils # (A) 0.04 X 10*3/uL (0.00-0.10); Basophils % (A) 0.8 %; Eosinophils # (A) 0.14 X 10*3/uL (0.04-0.35); Eosinophils % (A) 2.6 %; HCT 34.2 % (37.2-46.3); HGB 11.8 g/dL (12.0-15.0); Lymphocytes # (A) 1.41 X 10*3/uL (0.90-5.00); Lymphocytes % (A) 26.6 %; MCH 32.2 pg (27.0-32.0); MCHC 34.5 g/dL (32.0-37.0); MCV 93.4 fL (80.0-97.0); Mean Platelet Volume 9.7 fL (9.5-12.2); Monocytes # (A) 0.36 X 10*3/uL (0.20-1.00); Monocytes % (A) 6.8 %; Neutrophils # (A) 3.33 X 10*3/uL (1.80-7.70); Neutrophils % (A) 62.8 %; Platelet Count 339 X 10*3/uL (140-440); RBC 3.66 X 10*6/uL (4.10-5.20); RDW 12.7 % (11.5-14.5)
[2021-01-19 10:00] LABS: African American GFR (CKD) 65.2 (60.0-200.0); Albumin 4.7 g/dL (3.80-4.90); Albumin/Globulin Ratio 1.96 (1.60-3.17); Anion Gap 12.1 mmol/L (4.00-12.00); Calcium 9.2 mg/dL (8.7-10.3); Carbon Dioxide 19.9 mmol/L (21.6-31.8); Globulin 2.4 g/dL (1.6-3.3); Non-African American GFR(CKD) 56.2 (60.0-200.0); Potassium 4.8 mmol/L (3.5-5.5); Total Bilirubin 0.5 mg/dL (0.2-1.2); Total Protein 7.1 g/dL (6.2-8.2)
== END | disposition home or self-care (01) ==
LOC: LABWHC1 13:01
PROVIDERS: ATTEND Family Medicine
DX: R06.02 Shortness of breath (principal); Z86.16 Personal history of COVID-19
CPT/HCPCS: 36415; 71046; 80053; 85025

== ENCOUNTER → 2021-02-07 | Outpatient (CLI) | payer MEDICARE ==
[~2021-02-07] MED LIST: DOBUTamine DRIP for NUC MED 500 MG in DEXTROSE/WATER 1 250ML.BAG IV PRN
--- NOTE | 2021-02-07 11:11 | P.STRESS ---
- Stress Test Note Stress Test Results/Findings: Exam Performed: dobutamine stress echo Exam Date: 02/07/21 Reason for Exam: Dyspnea Height: 5 ft 7 in Weight: 81.82 kg Protocol: Dobutamine stress echo Stage: IV Duration of Exercise: 11:23 Resting Heart Rate: 85 Resting Blood Pressure: 110/65 Maximum Achieved Heart Rate: 127 Maximum Achieved Blood Pressure: 116/63 85% PMHR: 126 100% PMHR: 148 METS: Technologist Comment: Stress Test Results/Findings: This is a 71-year-old female with history of hypertension and CVA being evaluated for symptoms of chest pain and shortness of breath. Stress data: Baseline EKG showed sinus rhythm with normal IN interval and QRS duration. Blood pressure at rest is 110/65 with pulse rate of 85. A standard dose of dobutamine was initiated at 10 mics and was titrated to maximum 40 mics. The maximum heart rate of 127. Blood pressure dropped to 86/61, but slowly came back to 104/55 into 6 minutes of post exercise period. Patient did not experience any chest pain. EKGs taken during and after the dobutamine infusion did not reveal any changes of ischemia. Echo data: Baseline echo images showed normal wall motion and thickening. Exercise echo images set at low dose and high dose dobutamine showed progressive augmentation of the wall motion and thickening without any segmental wall motion defects. Final impression: #1. Negative dobutamine stress test #2. Negative dobutamine stress echo.
--- NOTE | 2021-02-09 10:19 | EST ---
Stress Test Results/Findings: Exam Performed: dobutamine stress echo Exam Date: 02/07/21 Reason for Exam: Dyspnea Height: 5 ft 7 in Weight: 81.82 kg Protocol: Dobutamine stress echo Stage: IV Duration of Exercise: 11:23 Resting Heart Rate: 85 Resting Blood Pressure: 110/65 Maximum Achieved Heart Rate: 127 Maximum Achieved Blood Pressure: 116/63 85% PMHR: 126 100% PMHR: 148 METS: Technologist Comment: Stress Test Results/Findings: This is a 71-year-old female with history of hypertension and CVA being evaluated for symptoms of chest pain and shortness of breath. Stress data: Baseline EKG showed sinus rhythm with normal W[place] interval and QRS duration. Blood pressure at rest is 110/65 with pulse rate of 85. A standard dose of dobutamine was initiated at 10 mics and was titrated to maximum 40 mics. The maximum heart rate of 127. Blood pressure dropped to 86/61, but slowly came back to 104/55 into 6 minutes of post exercise period. Patient did not experience any chest pain. EKGs taken during and after the dobutamine infusion did not reveal any changes of ischemia. Echo data: Baseline echo images showed normal wall motion and thickening. Exercise echo images set at low dose and high dose dobutamine showed progressive augmentation of the wall motion and thickening without any segmental wall motion defects. Final impression: #1. Negative dobutamine stress test #2. Negative dobutamine stress echo. [facility]
== END | disposition home or self-care (01) ==
LOC: RADNMMAIN 09:01
PROVIDERS: ATTEND Family Medicine
DX: R06.02 Shortness of breath (principal); I10 Essential (primary) hypertension
CPT/HCPCS: 93351

== ENCOUNTER 2021-03-08 10:37 | Day surgery (SDC) | payer MEDICARE ==
[2021-03-05 14:07] VITALS: BMI 28.1
[~2021-03-08 10:37] MED LIST changes: -DOBUTamine DRIP for NUC MED 500 MG in DEXTROSE/WATER 1 250ML.BAG IV PRN; +LACTATED RINGERS 1,000 ML IV SCH
[2021-03-08 11:48] VITALS: TEMP 97.8
[2021-03-08] MEDS ORDERED: LACTATED RINGERS 1,000 ML IV ONE (11:48)
[2021-03-08] MEDS ORDERED: GLUCAGON 1 MG/ML VIAL ONE (12:42)
[2021-03-08] MEDS ORDERED: PROPOFOL 10 MG/ML 20 ML VIAL IV ONE (12:42)
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
--- NOTE | 2021-03-08 12:57 | P.OP ---
Date of Procedure: 03/08/21 Preoperative Diagnosis: Screening colonoscopy Postoperative Diagnosis: Diverticulosis Poor colon prep Procedure(s) Performed: Colonoscopy Anesthesia: MAC Surgeon: Tyrel Crews Pathology: none sent Condition: stable Disposition: PACU Description of Procedure: Patient's placed on the endoscopy table in the lateral position. She received IV sedation. Digital rectal exam performed which revealed no abnormalities. Flexible colonoscope was then placed the patient's anus and passed with colon. Scope was placed level of the transverse colon. There was very very poor colon prep. A large amount of liquid stool was in the colon. This point scope withdrawn. The distal transverse colon appeared normal. In the descending and sigmoid colon there is extensive diverticular changes. Scope was brought back the rectum this appeared normal. The view of the mucosa was limited due to the poor prep. Patient top she will was sent to recovery room stable condition.
[2021-03-08 13:19] VITALS: BP 133/81; PULSE 89; RESP 18
== END 2021-03-08 13:33 | disposition home or self-care (01) ==
LOC: ORWHC2ENDO 10:37
PROVIDERS: ATTEND Surgery
DX: Z12.11 Encounter for screening for malignant neoplasm of colon (principal); K57.30 Diverticulosis of large intestine without perforation or abscess without bleeding; M79.7 Fibromyalgia; K21.9 Gastro-esophageal reflux disease without esophagitis; I10 Essential (primary) hypertension; M19.90 Unspecified osteoarthritis, unspecified site; I69.354 Hemiplegia and hemiparesis following cerebral infarction affecting left non-dominant side; G43.909 Migraine, unspecified, not intractable, without status migrainosus; G89.4 Chronic pain syndrome; Z90.89 Acquired absence of other organs; Z98.890 Other specified postprocedural states; Z90.49 Acquired absence of other specified parts of digestive tract; Z98.51 Tubal ligation status; Z96.642 Presence of left artificial hip joint; Z96.653 Presence of artificial knee joint, bilateral; Z98.42 Cataract extraction status, left eye; Z98.1 Arthrodesis status; Z96.82 Presence of neurostimulator; F40.240 Claustrophobia; Z87.891 Personal history of nicotine dependence; Z82.0 Family history of epilepsy and other diseases of the nervous system; Z82.5 Family history of asthma and other chronic lower respiratory diseases; Z83.3 Family history of diabetes mellitus; Z82.49 Family history of ischemic heart disease and other diseases of the circulatory system; Z84.1 Family history of disorders of kidney and ureter; Z83.518 Family history of other specified eye disorder; Z80.8 Family history of malignant neoplasm of other organs or systems; Z79.899 Other long term (current) drug therapy; Z79.1 Long term (current) use of non-steroidal anti-inflammatories (NSAID)
CPT/HCPCS: J1610; J2704; G0121; 45378

== ENCOUNTER 2021-06-22 09:44 | Day surgery (SDC) | payer MEDICARE ==
[2021-06-18 11:57] VITALS: BMI 29.7
[2021-06-22 10:36] VITALS: RESP 16; TEMP 97.3
[2021-06-22] MEDS ORDERED: LACTATED RINGERS 1,000 ML IV ONE (10:40)
[2021-06-22] MEDS ORDERED: LIDOCAINE 1% (10MG/ML) FOR IV START INTRADERMA ONE (10:40)
[2021-06-22] MEDS ORDERED: LIDOCAINE 1% INJ 10MG/ML (20 ML MDV) ONE (11:48)
[2021-06-22] MEDS ORDERED: PROPOFOL 10 MG/ML 20 ML VIAL IV ONE (11:48)
--- NOTE | 2021-06-22 11:53 | P.GSHP ---
History of Present Illness H&P Date: 06/22/21 Chief Complaint: Dysphagia This a 71-year-old female who presents today for EGD. She's had issues with dysphagia. 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, LT LEG HAD BEEN WEAK EVER SINCE 1995, UNABLE TO BALANCE ON LT LEG, MIGRAINES,CHRONIC PAIN SYNDROME, COVID 11/2020, SOB with exertion, gout, restless leg syndrome, History of Any Multi-Drug Resistant Organisms: None Reported Past Surgical History: Appendectomy, Back Surgery, Bladder Surgery, Cholecystectomy, Hernia Repair, Joint Replacement, Orthopedic Surgery, Tonsillectomy, Tubal Ligation Additional Past Surgical History / Comment(s): LOU FUNDOPLICATION, [id number] SX INCLUDING LT HIP HAD HARWARE IN PLACE THEN HAD TOTAL LT HIP REPLACMENT,HENRIETTA KNEE REPLACEMENTS.ORIF RT FT,HARDWARE TO BACK,henrietta CATARACT REMOVAL,EGD.COLONOSCOPY, LUMBAR FUSION x 2 with HARDWARE.EPIDURAL Thoracic laminectomy t10-t11 with placement neurostimulator and battery pack in left buttock 09/23/2016 (not functioning currently) rt thumb surgery,bladder suspension Past Anesthesia/Blood Transfusion Reactions: No Reported Reaction Additional Past Anesthesia/Blood Transfusion Reaction / Comment(s): Strong GAG REFLEX, CLAUSTROPHOBIA Smoking Status: Former smoker - Past Family History Father Additional Family Medical History / Comment(s): PARKINSON'S DISEASE Mother Family Medical History: Congestive Heart Failure (CHF), COPD, Diabetes Mellitus, Hypertension, Renal Disease Additional Family Medical History / Comment(s): MAC DEGENERATION Brother(s) Family Medical History: Cancer Additional Family Medical History / Comment(s): MELANOMA Medications and Allergies Home Medications Medication Instructions Recorded Confirmed Type DULoxetine HCL [Cymbalta] 60 mg PO HS 09/18/16 06/18/21 History Celecoxib [CeleBREX] 200 mg PO HS 04/01/18 06/18/21 History amLODIPine [Norvasc] 5 mg PO HS 03/29/20 06/18/21 History Amitriptyline HCl [Elavil] 25 mg PO HS 03/05/21 06/18/21 History Pantoprazole [Protonix] 40 mg PO HS 06/18/21 06/18/21 History rOPINIRole HCL [Requip] 2 mg PO BID 06/18/21 06/18/21 History Allergies Allergy/AdvReac Type Severity Reaction Status Date / Time No Known Allergies Allergy Verified 06/22/21 10:28 Surgical - Exam Vital Signs Temp Pulse Resp BP Pulse Ox 97.3 F L 87 16 175/74 96 06/22/21 10:31 06/22/21 10:31 06/22/21 10:31 06/22/21 10:31 06/22/21 10:31 - General well developed, well nourished, no distress - Eyes PERRL - ENT normal pinna - Neck no masses - Respiratory normal expansion - Cardiovascular Rhythm: regular - Abdomen Abdomen: soft, non tender Assessment and Plan Assessment: Dysphagia. We'll perform EGD.
--- NOTE | 2021-06-22 12:01 | P.OP ---
Date of Procedure: 06/22/21 Preoperative Diagnosis: Dysphagia Postoperative Diagnosis: Antral gastritis Procedure(s) Performed: EGD Anesthesia: MAC Surgeon: Tyrel Crews Pathology: other (Antrum) Condition: stable Disposition: PACU Description of Procedure: The patient's placed on the endoscopy table in the lateral position. She received IV sedation. The gaseously she'll oropharynx passed in the esophagus into the stomach. Scope was then placed through the pylorus. The first and second portion of duodenum appeared normal. Scope was then brought back the antrum was inflamed. A biopsy performed. Scope was unretroflexed and remainder stomach appeared normal. There is no significant hiatal hernia. The GE junction was at 39 cm. The distal esophagus appeared normal. The proximal esophagus. Normal. Scope was withdrawn for patient.
[2021-06-22 12:19] VITALS: PULSE 81
[2021-06-22 12:20] VITALS: BP 155/91
== END 2021-06-22 12:43 | disposition home or self-care (01) ==
LOC: ORWHC2ENDO 09:44
PROVIDERS: ATTEND Surgery
DX: K29.70 Gastritis, unspecified, without bleeding (principal); K21.9 Gastro-esophageal reflux disease without esophagitis; R13.10 Dysphagia, unspecified; I10 Essential (primary) hypertension; M19.90 Unspecified osteoarthritis, unspecified site; M79.7 Fibromyalgia; Z79.1 Long term (current) use of non-steroidal anti-inflammatories (NSAID); Z82.49 Family history of ischemic heart disease and other diseases of the circulatory system; Z83.3 Family history of diabetes mellitus; Z86.73 Personal history of transient ischemic attack (TIA), and cerebral infarction without residual deficits; Z87.891 Personal history of nicotine dependence; Z90.49 Acquired absence of other specified parts of digestive tract
CPT/HCPCS: 43239; J2001; J2704; 88305

== ENCOUNTER → 2021-06-26 | Outpatient (CLI) | payer MEDICARE | LOC: CPPFTMAIN 11:57 | PROVIDERS: ATTEND Family Medicine | DX: R05 Cough (principal); R06.02 Shortness of breath; Z87.891 Personal history of nicotine dependence | CPT/HCPCS: 94060; 94726; 94729 ==

== ENCOUNTER → 2021-11-08 | Outpatient (CLI) | payer MEDICARE ==
--- NOTE | 2021-11-09 06:14 | CT ---
EXAMINATION TYPE: CT abdomen pelvis w con DATE OF EXAM: 11/08/2021 HISTORY: no bowel control, diverticulitis. CT DLP: 1406.6mGycm Automated Exposure Control for Dose Reduction was Utilized. CONTRAST: CT scan of the abdomen and pelvis is performed with oral and with IV Contrast, patient injected with 80 mL of Isovue 300. COMPARISON: None. FINDINGS: LUNG BASES: No significant abnormality is appreciated. LIVER/GB: Cholecystectomy clips are present. PANCREAS: No significant abnormality is seen. SPLEEN: No significant abnormality is seen. ADRENALS: No significant abnormality is seen. KIDNEYS: Symmetrical uptake and excretion with bilateral renal pelvic prominence but no significant c alyceal dilatation or hydroureter consistent with extrarenal pelvises. BOWEL: Oral contrast was not reached level of cecum making evaluation of distal bowel suboptimal. No suspicious small or large bowel dilatation. Some distal colonic diverticula. No CT evidence for acute diverticulitis. Surgical changes epigastric region present from the recent fundoplication surgery. R ecurrent small to moderate size hiatal hernia is present. UTERUS/ADNEXA: Uterus is surgically absent. LYMPH NODES: No greater than 1cm abdominal or pelvic lymph nodes are appreciated. OSSEOUS STRUCTURES: Metallic hardware from left hip arthroplasty causes streak artifact limiting eval uation of pelvic structures. Postsurgical change to the lower lumbar spine is present lower lumbar sp ine laminectomy defects. Posterior fusion hardware L3-L4 level. Moderate axial joint space loss and s purring in the right hip. OTHER: No significant additional abnormality is seen. IMPRESSION: A few distal colonic diverticula, no CT evidence for acute diverticulitis. Recurrent hiat al hernia despite prior surgical change noted.
== END | disposition home or self-care (01) ==
LOC: RADCTMAIN 16:08
PROVIDERS: ATTEND Surgery
DX: K57.30 Diverticulosis of large intestine without perforation or abscess without bleeding (principal); K44.9 Diaphragmatic hernia without obstruction or gangrene
CPT/HCPCS: 82565; 84520; 74177; 36415; Q9967

== ENCOUNTER 2021-11-11 11:37 | Emergency (ER) | payer MEDICARE ==
[2021-11-11 11:59] VITALS: TEMP 97.8
[2021-11-11] MEDS ORDERED: SODIUM CHLORIDE 0.9% 500 ML 500 ML IV STA (12:24)
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
[2021-11-11 13:20] LABS: Basophils % (A) 1 %; Eosinophils # (A) 0.3 k/uL (0-0.7); Eosinophils % (A) 5 %; HCT 37.7 % (34.0-46.0); HGB 12.7 gm/dL (11.4-16.0); Lymphocytes # (A) 1.1 k/uL (1.0-4.8); Lymphocytes % (A) 21 %; MCH 31.6 pg (25.0-35.0); MCHC 33.8 g/dL (31.0-37.0); MCV 93.6 fL (80.0-100.0); Mean Platelet Volume 7.3; Monocytes # (A) 0.4 k/uL (0-1.0); Monocytes % (A) 7 %; Neutrophils # (A) 3.5 k/uL (1.3-7.7); Neutrophils % (A) 64 %; Platelet Count 283 k/uL (150-450); RBC 4.03 m/uL (3.80-5.40); RDW 12.5 % (11.5-15.5); WBC 5.4 k/uL (3.8-10.6)
[2021-11-11 13:23] LABS: ALT 16 U/L (4-34); AST 25 U/L (14-36); African American GFR (CKD) >90 (>60 ml/min/1.73 sqM); Albumin 4.4 g/dL (3.5-5.0); Alkaline Phosphatase 126 U/L (38-126); Anion Gap 10 mmol/L; Blood Urea Nitrogen 12 mg/dL (7-17); Calcium 8.8 mg/dL (8.4-10.2); Carbon Dioxide 22 mmol/L (22-30); Chloride 96 mmol/L (98-107); Glucose 115 mg/dL (74-99); Magnesium 2.1 mg/dL (1.6-2.3); Non-African American GFR(CKD) 79 (>60 ml/min/1.73 sqM); Sodium 128 mmol/L (137-145); Total Bilirubin 0.4 mg/dL (0.2-1.3); Total Protein 7.4 g/dL (6.3-8.2)
[2021-11-11 13:25] LABS: INR 0.9 (<1.2); Partial Thromboplastin Time 29.2 sec (22.0-30.0)
--- NOTE | 2021-11-11 14:12 | CT ---
EXAMINATION TYPE: CT brain [employer] [employer] con DATE OF EXAM: 11/11/2021 COMPARISON: 06/02/2019 HISTORY: Fall, head injury TECHNIQUE: CT scan of the head and cervical spine without contrast CT DLP: 1366.4 mGycm Automated exposure control for dose reduction was used. FINDINGS: No acute intracranial hemorrhage midline shift or mass effect. Salazar-white matter differentiation is p reserved. There is brain volume loss and vascular stomach changes. No acute orbital, osseous or soft tissue abnormalities seen. No air-fluid levels seen in the paranasal sinuses or mastoid air cells. Surgical changes seen in the bilateral orbits. Craniocervical junction is maintained. Remote fracture deformities of C7 and T1 with no significant c hange. Acutely intact posterior elements. Reversal of the cervical curvature. Degenerative changes at C1-2. Degenerative changes throughout the cervical and upper thoracic spine. Posterior longitudinal ligament calcification at the level of C4. Lung apices are unremarkable. Airways are patent. Thyroid gland is not enlarged. No cervical lymphade nopathy. IMPRESSION: 1. NO ACUTE INTRACRANIAL HEMORRHAGE MIDLINE SHIFT OR MASS EFFECT. 2. ADVANCED DEGENERATIVE CHANGES AND COMPRESSION FRACTURE DEFORMITIES IN THE CERVICAL SPINE WITH NO S IGNIFICANT CHANGE. 3. NO DEFINITE ACUTELY DISLOCATED FRACTURE. CLINICAL CORRELATION RECOMMENDED.
[2021-11-11 14:24] VITALS: BP 138/81; PULSE 85; RESP 16
[2021-11-11 14:35] LABS: Appearance,Urine Clear (Clear); Bacteria,Urine Rare /hpf; Bilirubin,Urine Negative (Negative); Blood,Urine Negative (Negative); Color,Urine Light Yellow; Glucose,Urine (UA) Negative (Negative); Ketones,Urine Negative (Negative); Leukocyte Esterase,Urine Large (Negative); Mucus,Urine Rare /hpf; Nitrite,Urine Negative (Negative); PH, Urine 6.5 (5.0-8.0); Protein,Urine Negative (Negative); RBC,Urine 1 /hpf (0-5); Specific Gravity,Urine 1.008 (1.001-1.035); Urobilinogen,Urine <2.0 mg/dL (<2.0); WBC,Urine 26 /hpf (0-5)
[2021-11-11] MEDS ORDERED: NITROFURANTOIN MONOHYD/M-CRYST 100 MG CAP PO STA (14:51)
== END 2021-11-11 15:06 | disposition home or self-care (01) ==
LOC: EC 11:37
DX: S06.0X0A Concussion without loss of consciousness, initial encounter (principal); N39.0 Urinary tract infection, site not specified; M79.7 Fibromyalgia; K21.9 Gastro-esophageal reflux disease without esophagitis; I10 Essential (primary) hypertension; M19.90 Unspecified osteoarthritis, unspecified site; F41.9 Anxiety disorder, unspecified; F32.A Depression, unspecified; Z86.73 Personal history of transient ischemic attack (TIA), and cerebral infarction without residual deficits; Z90.49 Acquired absence of other specified parts of digestive tract; Z98.51 Tubal ligation status; Z96.642 Presence of left artificial hip joint; Z96.653 Presence of artificial knee joint, bilateral; Z87.891 Personal history of nicotine dependence; W01.10XA Fall on same level from slipping, tripping and stumbling with subsequent striking against unspecified object, initial encounter
CPT/HCPCS: 36415; 70450; 72125; 80053; 81001; 83735; 84484; 85025; 85610; 85730; 93005; 99284

== ENCOUNTER → 2021-12-06 | Outpatient (CLI) | payer MEDICARE ==
--- NOTE | 2021-12-06 08:52 | FL ---
EXAMINATION TYPE: FL UGI air w esophagus DATE OF EXAM: 12/06/2021 COMPARISON: CT abdomen and pelvis November 08, 2021 exam prior esophagram images June 10, 2014 HISTORY: Heartburn and epigastric pain worse after eating. History of Horace fundoplication surgery i n the past. TECHNIQUE: A single contrast UGI study is performed. A total of 15 seconds of fluoroscopic time was utilized during procedure and 54 images obtained. FINDINGS: Nursing Informatics Specialist image of the abdomen was not performed as is normal protocol. The esophagus shows some episodes of abnormal secondary and tertiary contractions but only mild delay in flow and emptying into the stomach. No abnormal outpouchings or diverticulum. No stricture. There is confirmation of recurrent small to moderate-sized fixed hiatal hernia at the level of diaphragmat ic hiatus. Multiple surgical clips at epigastric region are seen. There is additional lower thoracic spinal stim ulator device and cholecystectomy clips. The stomach shows satisfactory distensibility for single con trast study. No evidence of focal ulcer disease. [id number] amount of gastroesophageal reflux was seen during real time performance of this study. The duodenal bulb, sweep, and proximal small bowel loops are within normal limits. There is additiona l surgical change in the lumbar spine redemonstrated IMPRESSION: Recurrent small to moderate size fixed hiatal hernia with moderate gastroesophageal reflu x.
== END | disposition home or self-care (01) ==
LOC: RADFLMAIN 07:50
PROVIDERS: ATTEND Surgery
DX: K44.9 Diaphragmatic hernia without obstruction or gangrene (principal); K21.9 Gastro-esophageal reflux disease without esophagitis
CPT/HCPCS: 74246

== ENCOUNTER → 2022-01-04 | Outpatient (CLI) | payer MEDICARE ==
[2022-01-04 13:37] LABS: Basophils # (A) 0.1 k/uL (0-0.2); Basophils % (A) 1 %; Eosinophils # (A) 0.2 k/uL (0-0.7); Eosinophils % (A) 3 %; HCT 40.4 % (34.0-46.0); HGB 13.8 gm/dL (11.4-16.0); Lymphocytes # (A) 1.3 k/uL (1.0-4.8); Lymphocytes % (A) 24 %; MCH 32.1 pg (25.0-35.0); MCHC 34.2 g/dL (31.0-37.0); MCV 93.8 fL (80.0-100.0); Mean Platelet Volume 6.9; Monocytes # (A) 0.3 k/uL (0-1.0); Monocytes % (A) 6 %; Neutrophils # (A) 3.7 k/uL (1.3-7.7); Neutrophils % (A) 64 %; Platelet Count 317 k/uL (150-450); RBC 4.31 m/uL (3.80-5.40); RDW 12.8 % (11.5-15.5); WBC 5.7 k/uL (3.8-10.6)
--- NOTE | 2022-01-04 14:49 | CT ---
EXAMINATION TYPE: CT angio head neck DATE OF EXAM: 01/04/2022 HISTORY: TIA COMPARISON: 04/01/2018 CT DLP: 1415 mGycm. Automated Exposure Control for Dose Reduction was Utilized. TECHNIQUE: CTA scan of the neck is performed without and with IV Contrast, patient injected with 65 mL of Isovue 370, axial images are obtained, coronal and sagittal reformatted images are reviewed. 3D reconstructed images are created on an independent workstation and reviewed. FINDINGS: The brachiocephalic origins are widely patent without significant stenosis. The common and internal carotid arteries within the neck are widely patent without significant stenos is or aneurysm. There is no significant calcification in the carotid bifurcations. There is no significant stenosis, segmental occlusion, sizable aneurysm sac or vascular malformation in the anterior posterior circulation intracranially. IMPRESSION: No significant abnormality with no interval change.
== END | disposition home or self-care (01) ==
LOC: RADCTMAIN 12:47
PROVIDERS: ATTEND Psychiatry & Neurology Neurology
DX: G45.9 Transient cerebral ischemic attack, unspecified (principal)
CPT/HCPCS: 82565; 84520; 85025; 70496; 70498; 36415; Q9967

== ENCOUNTER 2022-01-16 09:45 | Inpatient (IN) | payer MEDICARE ==
[2022-01-11 15:03] VITALS: BMI 30.5
[~2022-01-16 09:45] MED LIST changes: +ACETAMINOPHEN TAB 500 MG TAB PO PRN; +DEXAMETHASONE SOD PHOSPHATE 4 MG/ML 1 ML VIAL IV ONE; +HEPARIN SODIUM,PORCINE/PF 5,000 UNIT/0.5 ML SYRINGE SQ PRN; +ONDANSETRON 4 MG/2 ML VIAL IVP ONE
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
[2022-01-16] MEDS ORDERED: MIDAZOLAM 2 MG/2 ML VIAL IVP ONE ×2 (10:41)
[2022-01-16] MEDS ORDERED: HYDROmorphone (PF) 1 MG/ML ONE (10:44)
[2022-01-16] MEDS ORDERED: ROCURONIUM 10 MG/ML (5 ML VIAL) IV ONE (10:44)
[2022-01-16] MEDS ORDERED: fentaNYL (PF) 50 MCG/ML 2 ML AMP ONE (10:44)
[2022-01-16] MEDS ORDERED: ePHEDrine 50 MG/ML 1 ML VIAL ONE (10:44)
[2022-01-16] MEDS ORDERED: SUCCINYLCHOLINE CHLORIDE 100 MG/5 ML SYR IV ONE (10:44)
[2022-01-16] MEDS ORDERED: GLYCOPYRROLATE 0.2 MG/ML 2 ML VIAL ONE (10:44)
[2022-01-16] MEDS ORDERED: LIDOCAINE 1% INJ 10MG/ML (20 ML MDV) ONE (10:44)
[2022-01-16] MEDS ORDERED: NEOSTIGMINE 1 MG/ML 10 ML VIAL ONE (10:44)
[2022-01-16] MEDS ORDERED: PROPOFOL 10 MG/ML 20 ML VIAL IV ONE (10:44)
[2022-01-16] MEDS ORDERED: BUPIVACAIN-EPI 0.25%-1:200,000 30 ML VIAL SQ ONE ×2 (11:06→11:30)
[2022-01-16] MEDS ORDERED: LACTATED RINGERS 1,000 ML IV ONE ×2 (12:25→13:21)
[2022-01-16] MEDS: HYDROmorphone 0.5 MG/0.5 ML SYRINGE IVP PRN ×4 (13:01→13:42)
[2022-01-16] MEDS ORDERED: fentaNYL (PF) 50 MCG/ML 2 ML AMP IVP ONE ×2 (13:09→13:14)
--- NOTE | 2022-01-16 13:19 | P.OP ---
Date of Procedure: 01/16/22 Preoperative Diagnosis: GERD Postoperative Diagnosis: Extensive intraperitoneal adhesions Hiatal hernia Procedure(s) Performed: Diagnostic laparoscopy Exploratory laparotomy Lysis of adhesions Repair of hiatal hernia with [place] bio a mesh Anesthesia: SYLWIA Surgeon: Tyrel Crews Estimated Blood Loss (ml): 100 Pathology: none sent Condition: stable Disposition: PACU Operative Findings: Extensive adhesions Description of Procedure: The patient's placed on the operating table in the supine position. She received general endotracheal anesthesia. She was then placed in dorsal lithotomy position. Her abdomen was prepped and draped usual sterile fashion. A left lateral abdominal wall skin incision was made. Then using the optical trocar under direct visualization the peritoneal cavity is entered. Upon entering the pleural cavity the abdomen was insufflated. The laparoscope was placed. Cavity. There were extensive adhesions along her previous midline scar. At this point it was decided to perform a open repair of her hiatal hernia. The trocar was withdrawn. The skin was incised in the midline. The abdomen was entered through the midline scar. There were extensive adhesions noted. Approximately 20 minutes of operative time used to lyse adhesions. Once the adhesions to midline were lysed. The Bookwalter retractors placed a wound. The stomach was visualized. The liver was adherent to the superior portion of the abdominal wall. The liver had a small fracture in the prostate 1 cm portion of the left lateral lobe liver was stuck to the abdominal wall. This was removed using electrocautery. Sent to pathology. Once exposure was obtained. The hiatal hernia could be visualized. The greater curvature stomach was then dissected using the Enseal device. Once the stomach was mobilized. It was brought completely into the peritoneal cavity. A suitable length of esophagus was seen. The crura was repaired using 2-0 Ethibond suture in the timeout device. After the crura was repaired was performed a piece of [place] bio a mesh was placed over top the repair and secured with 2-0 Ethibond suture. A 58- English bougie dilator had been placed into the esophagus prior to crural repair. There is no evidence of any obstruction the esophagus once the crura was repaired. The dilators then withdrawn. The area was irrigated is no bleeding seen. The fascia was closed with looped #1 PDS suture. Skin was closed jennifer. Patient top she will was sent to recovery room in stable condition.
[2022-01-16] MEDS ORDERED: HYDROmorphone 0.5 MG/0.5 ML SYRINGE IVP PRN (13:21)
[2022-01-16] MEDS ORDERED: NALOXONE 0.4 MG/ML 1 ML VIAL IV PRN (13:21)
[2022-01-16] MEDS ORDERED: KETOROLAC 15 MG/ML 1 ML VIAL IVP ONE (13:32)
[2022-01-16] MEDS ORDERED: diphenhydrAMINE 50 MG/ML 1 ML VIAL IVP ONE (14:01)
[2022-01-16] MEDS: HYDROmorphone 1 MG/ML 1 ML SYRINGE IVP PRN (15:53)
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
[2022-01-16] MEDS: SUCRALFATE 1 GM TAB PO SCH (17:28)
[2022-01-16] MEDS: KETOROLAC 30 MG/ML 1 ML VIAL IVP SCH ×2 (17:38→23:41)
[2022-01-16] MEDS: FAMOTIDINE 20 MG TAB PO SCH (21:47)
[2022-01-16] MEDS: AMITRIPTYLINE HCL 50 MG TAB PO SCH (21:47)
[2022-01-16] MEDS: DULoxetine HCL 60 MG CAPSULE.DR PO SCH (21:47)
[2022-01-16] MEDS: oxyCODONE-APAP 5-325MG 1 EACH TAB PO PRN ×2 (21:47→23:44)
[2022-01-17] MEDS: amLODIPine 5 MG TAB PO SCH ×2 (00:41→21:31)
[2022-01-17] MEDS: oxyCODONE-APAP 5-325MG 1 EACH TAB PO PRN ×4 (04:13→21:31)
[2022-01-17] MEDS: KETOROLAC 30 MG/ML 1 ML VIAL IVP SCH ×4 (05:30→23:14)
[2022-01-17] MEDS: FAMOTIDINE 20 MG TAB PO SCH ×2 (08:43→21:31)
[2022-01-17] MEDS: SUCRALFATE 1 GM TAB PO SCH ×2 (08:43→17:29)
[2022-01-17] MEDS ORDERED: ENOXAPARIN 30 MG/0.3 ML SYRINGE SQ SCH (09:00)
[2022-01-17 09:15] LABS: Basophils # (A) 0.01 X 10*3/uL (0.00-0.10); Basophils % (A) 0.1 %; Eosinophils # (A) 0 X 10*3/uL (0.04-0.35); Eosinophils % (A) 0 %; HCT 33.3 % (37.2-46.3); Immature Grans, Automated 0.5 %; Lymphocytes % (A) 3.6 %; MCH 31.2 pg (27.0-32.0); MCV 94.3 fL (80.0-97.0); Mean Platelet Volume 9.4 fL (9.5-12.2); Monocytes # (A) 0.52 X 10*3/uL (0.20-1.00); Monocytes % (A) 4.7 %; NRBC Per 100 WBC 0 /100 WBCS (0.0-0.0); Neutrophils # (A) 10.08 X 10*3/uL (1.80-7.70); Neutrophils % (A) 91.1 %; Platelet Count 247 X 10*3/uL (140-440); RBC 3.53 X 10*6/uL (4.10-5.20); RDW 13.2 % (11.5-14.5); WBC 11.06 X 10*3/uL (4.50-10.00)
[2022-01-17 09:26] LABS: Albumin 4.3 g/dL (3.8-4.9); Albumin/Globulin Ratio 1.84 (1.60-3.17); Anion Gap 13.6 mmol/L (10.00-18.00); BUN/Creat Ratio 23.39 Ratio (12.00-20.00); Blood Urea Nitrogen 23.3 mg/dL (9.0-27.0); Carbon Dioxide 20.5 mmol/L (20.0-27.5); Globulin 2.4 g/dL (1.6-3.3); Non-African American GFR(CKD) 56.1 (60.0-200.0); Potassium 4.8 mmol/L (3.5-5.5); Total Bilirubin 0.4 mg/dL (0.30-1.20); Total Protein 6.7 g/dL (6.2-8.2)
--- NOTE | 2022-01-17 09:51 | P.PN ---
<Umer Perea - Last Filed: 01/17/22 09:29> Subjective Progress Note Date: 01/17/22 History of Presenting Illness: Patient is a very pleasant 71-year-old female with a past medical history of CVA with left-sided deficits, hypertension, migraines, GERD, fibromyalgia, and osteoarthritis. She is currently admitted under Gen. surgery team status post exploratory laparotomy with repair of hiatal hernia and lysis of adhesions completed by Dr. Crews. We have been consulted for continued medical man agement throughout hospitalization. Physical exam: Patient was seen and fully evaluated at the bedside this morning. Patient reports feeling very uncomfortable this morning. Patient states pain is currently 8 out of 10 at this time throughout abdomen. Abdomen is taught distended and there is mild to moderate shadowing of blood through dressing. Patient was medicated with Toradol at 5:30 this morning and Percocet at 8:43 AM. RN instructed if no improvement in pain after 1 hour administration of Percocet to administer Dilaudid as previously ordered. Patient has been weaned off of oxygen and is currently on room air with SpO2 92%. Morning labs reviewed revealing slight leukocytosis with WBC count of 11.06 and expected acute postsurgical blood loss anemia with hemoglobin of 11 (preoperative hemoglobin of 13.8 on 01/04/22). BMP revealed hyponatremia with sodium of 130 (appears to be chronic in nature) and acutely elevated liver enzymes with AST of 143 and ALT of 144. Patient has been tolerating ice chips and denies having any nausea, vomiting, headache, lightheadedness, dizziness, chest pain, palpitations, or shortness of breath. External catheter in place and patient urinating without any difficulties with documented 820 mL's of urine output over past 24 hours. Vital signs reviewed and stable. General: Nontoxic, no distress and appears stated age. Derm: Skin warm and dry, normal coloration for ethnicity. Head: Atraumatic, normocephalic and symmetric. Eyes: EOMs intact, no lid lag, and anicteric sclera Mouth: no lip lesions, mucus membranes moist Cardiovascular: regular rate and rhythm with normal S1S2, no murmur, positive posterior tibial pulses bilaterally, and cap refill < 2 seconds. Lungs: Respirations even, regular, and unlabored on room air. Lungs CTA bilaterally, no rhonchi, no rales, no wheezing, and no accessory muscle usage. Abdominal: taut distended, tenderness to palpation, postsurgical dressings to abdomen intact with moderate amount of blood shadowing through dressing. Ext: ROM intact. No gross muscle atrophy, no edema, no contractures Neuro: Speech clear, face symmetrical and CN II-XII grossly intact with no noted focal neuro deficits noted at this time. Patient does report however that she does have slight weakness to left upper and left lower extremity at times from previous CVA. Psych: Alert and oriented to person, place, time, and situation. Appropriate and pleasant affect. Assessment and Plan of Care: Status post exploratory laparotomy with repair of hiatal hernia and lysis of adhesions Postoperative pain -Surgical procedure completed by Dr. Crews 01/16/22. Patient is postop day 1. -Surgical Management per primary admitting general surgery team including wound care, postsurgical dressing changes, pain management, DVT prophylaxis. -Patient currently on DVT prophylaxis with Lovenox. -Pain management with Toradol, Percocet, and Dilaudid if needed. -Encourage incentive spirometry 10-15 times hourly while awake. Postoperative hypoxia, resolved continue to encourage incentive spirometry 10-15 times hourly while awake Hypertension -Monitor vital signs and continue daily medication regimen with amlodipine GERD -Continuation of daily medication regimen with Pepcid 20 mg twice daily and Carafate 1 g with meals twice daily. Fibromyalgia with chronic pain syndrome History of CVA with left-sided residual deficits -Symptomatic and supportive treatment. -Continuation of Requip 5 mg 3 times daily Anxiety and depression -Continue daily medication regimen with amitriptyline and duloxetine. Thank you for allowing us to participate in the care of this pleasant patient. Do not hesitate to contact us with questions. Someone can be reached from the [facility] hospitalist group all hours of the day at [phone] or via [employer]. Objective - Vital Signs Vital signs: Vital Signs Temp 97.8 F 01/17/22 08:00 Pulse 85 01/17/22 08:00 Resp 18 01/17/22 08:00 BP 121/66 01/17/22 08:00 Pulse Ox 90 L 01/17/22 08:00 Intake & Output 01/16/22 01/17/22 01/17/22 18:59 06:59 18:59 Intake Total 1450 Output Total 130 820 Balance 1320 -820 Weight 89.2 kg Intake: IV 1450 Output: Urine 30 820 Straight 410 Estimated Blood Loss 100 Other: Voiding Method External Catheter External Catheter - Labs CBC & Chem 7: 01/17/22 04:52 01/17/22 04:52 Labs: Abnormal Lab Results - Last 24 Hours (Table) 01/17/22 01/17/22 Range/Units 04:52 04:52 WBC 11.06 H (4.50-10.00) X 10*3/uL RBC 3.53 L (4.10-5.20) X 10*6/uL Hgb 11.0 L (12.0-15.0) g/dL Hct 33.3 L (37.2-46.3) % MPV 9.4 L (9.5-12.2) fL Immature Gran # 0.05 H (0.00-0.04) X 10*3/uL Neutrophils # 10.08 H (1.80-7.70) X 10*3/uL Lymphocytes # 0.40 L (0.90-5.00) X 10*3/uL Eosinophils # 0 L (0.04-0.35) X 10*3/uL Sodium 130 L (135-145) mmol/L Chloride 95 L (96-109) mmol/L Est GFR (CKD-EPI)NonAf 56.1 L (60.0-200.0) BUN/Creatinine Ratio 23.39 H (12.00-20.00) Ratio Glucose 120 H (70-110) mg/dL AST 143 H (13-35) U/L ALT 144 H (8-44) U/L <Jose De Jesus Cedillo - Last Filed: 01/17/22 17:19> Subjective I reviewed the documentation as provided by the ISRAEL above, who is the original author of this note. I agree with the documented assessment and plan, with the following changes: None Objective - Vital Signs Vital signs: Vital Signs Temp 98.2 F 01/17/22 14:00 Pulse 78 01/17/22 14:00 Resp 18 01/17/22 14:00 BP 116/66 01/17/22 14:00 Pulse Ox 94 L 01/17/22 14:00 Intake & Output 01/16/22 01/17/22 01/17/22 18:59 06:59 18:59 Intake Total 1450 Output Total 130 820 600 Balance 1320 -820 -600 Weight 89.2 kg Intake: IV 1450 Output: Urine 30 820 600 Straight 410 600 Estimated Blood Loss 100 Other: Voiding Method External Catheter External Catheter - Labs CBC & Chem 7: 01/17/22 04:52 01/17/22 04:52 Labs: Abnormal Lab Results - Last 24 Hours (Table) 01/17/22 01/17/22 Range/Units 04:52 04:52 WBC 11.06 H (4.50-10.00) X 10*3/uL RBC 3.53 L (4.10-5.20) X 10*6/uL Hgb 11.0 L (12.0-15.0) g/dL Hct 33.3 L (37.2-46.3) % MPV 9.4 L (9.5-12.2) fL Immature Gran # 0.05 H (0.00-0.04) X 10*3/uL Neutrophils # 10.08 H (1.80-7.70) X 10*3/uL Lymphocytes # 0.40 L (0.90-5.00) X 10*3/uL Eosinophils # 0 L (0.04-0.35) X 10*3/uL Sodium 130 L (135-145) mmol/L Chloride 95 L (96-109) mmol/L Est GFR (CKD-EPI)NonAf 56.1 L (60.0-200.0) BUN/Creatinine Ratio 23.39 H (12.00-20.00) Ratio Glucose 120 H (70-110) mg/dL AST 143 H (13-35) U/L ALT 144 H (8-44) U/L
[2022-01-17] MEDS: HYDROmorphone 1 MG/ML 1 ML SYRINGE IVP PRN (09:59)
[2022-01-17] MEDS: SODIUM CHLORIDE 0.9% 1,000 ML IV SCH ×2 (11:52→21:47)
--- NOTE | 2022-01-17 13:46 | P.PN ---
Subjective Progress Note Date: 01/17/22 CHIEF COMPLAINT: GERD HISTORY OF PRESENT ILLNESS: Patient status post diagnostic laparoscopy, exploratory laparotomy, lysis of adhesions and repair of hiatal hernia with core bio mesh for extensive intraperitoneal adhesions and hiatal hernia. Postop day #1. Patient is complaining of abdominal pain. Patient did go for an extended period of time without IV Dilaudid. Patient currently lying in bed more comfortable. Denies any nausea or vomiting. She does report a small amount of flatus. She is currently nothing by mouth except for ice chips. Afebrile. WBC is 11.06 hemoglobin 11 sodium is 1:30 creatinine 1.0 elevated LFTs Patient seen and examined with Dr. Crews PHYSICAL EXAM: VITAL SIGNS: Reviewed. GENERAL: Well-developed in no acute distress. HEENT: No sclera icterus. Extraocular movements grossly intact. Moist buccal mucosa. Head is atraumatic, normocephalic. ABDOMEN: Soft. Mildly distended. Incisional dressing saturated. Otherwise incision site itself is clean dry and intact with some dried blood noted. NEUROLOGIC: Alert and oriented. Cranial nerves II through XII grossly intact. ASSESSMENT: 1. Status post diagnostic laparoscopy, exploratory laparotomy, lysis of adhesions and repair of hiatal hernia with core bio mesh for extensive intraperitoneal adhesions and hiatal hernia PLAN: -Routine Upper GI ordered for evaluation of any leak or obstruction -Keep patient nothing by mouth except for ice chips until upper GI results reviewed -Continue IV fluids -Continue pain medication -Incisional dressing changed -DVT prophylaxis Lovenox Physician Glass Artist note has been reviewed by physician. Signing provider agrees with the documented findings, assessment, and plan of care. Objective - Vital Signs Vital signs: Vital Signs Temp 97.8 F 01/17/22 08:00 Pulse 85 01/17/22 08:00 Resp 18 01/17/22 08:00 BP 121/66 01/17/22 08:00 Pulse Ox 90 L 01/17/22 08:00 Intake & Output 01/16/22 01/17/22 01/17/22 18:59 06:59 18:59 Intake Total 1450 Output Total 130 820 Balance 1320 -820 Weight 89.2 kg Intake: IV 1450 Output: Urine 30 820 Straight 410 Estimated Blood Loss 100 Other: Voiding Method External Catheter External Catheter - Labs CBC & Chem 7: 01/17/22 04:52 01/17/22 04:52 Labs: Abnormal Lab Results - Last 24 Hours (Table) 01/17/22 01/17/22 Range/Units 04:52 04:52 WBC 11.06 H (4.50-10.00) X 10*3/uL RBC 3.53 L (4.10-5.20) X 10*6/uL Hgb 11.0 L (12.0-15.0) g/dL Hct 33.3 L (37.2-46.3) % MPV 9.4 L (9.5-12.2) fL Immature Gran # 0.05 H (0.00-0.04) X 10*3/uL Neutrophils # 10.08 H (1.80-7.70) X 10*3/uL Lymphocytes # 0.40 L (0.90-5.00) X 10*3/uL Eosinophils # 0 L (0.04-0.35) X 10*3/uL Sodium 130 L (135-145) mmol/L Chloride 95 L (96-109) mmol/L Est GFR (CKD-EPI)NonAf 56.1 L (60.0-200.0) BUN/Creatinine Ratio 23.39 H (12.00-20.00) Ratio Glucose 120 H (70-110) mg/dL AST 143 H (13-35) U/L ALT 144 H (8-44) U/L
--- NOTE | 2022-01-17 15:14 | FL ---
EXAMINATION TYPE: FL UGI w esophagus DATE OF EXAM: 01/17/2022 COMPARISON: 12/06/2021 HISTORY: Hiatal hernia repair TECHNIQUE: Real-time fluoroscopy and overhead radiographs were obtained over the gastroesophageal chucho ction region. FINDINGS: Fluoroscopy time: 23 seconds. Images: 151 Esophagus dilates to normal caliber and has normal contour the gastroesophageal junction. Gastroesoph ageal junction is mild hesitancy of contrast passing through. No extravasation of contrast is identif ied. Tertiary contractions were evident during the examination compatible with presbyesophagus within the distal esophagus. No free air is evident. IMPRESSION: 1. No extravasation of contrast. 2. Presbyesophagus
[2022-01-17] MEDS: DULoxetine HCL 60 MG CAPSULE.DR PO SCH (21:31)
[2022-01-17] MEDS: AMITRIPTYLINE HCL 50 MG TAB PO SCH (21:31)
[2022-01-18] MEDS: SODIUM CHLORIDE 0.9% 1,000 ML IV SCH ×2 (00:28→08:27)
[2022-01-18] MEDS: KETOROLAC 30 MG/ML 1 ML VIAL IVP SCH ×2 (05:06→12:15)
[2022-01-18] MEDS: oxyCODONE-APAP 5-325MG 1 EACH TAB PO PRN ×3 (05:06→20:59)
[2022-01-18] MEDS: ENOXAPARIN 40 MG/0.4 ML SYRINGE SQ SCH (08:26)
[2022-01-18] MEDS: FAMOTIDINE 20 MG TAB PO SCH ×2 (08:26→19:52)
[2022-01-18] MEDS: SUCRALFATE 1 GM TAB PO SCH ×2 (08:26→16:33)
[2022-01-18 09:15] LABS: Basophils # (A) 0.03 X 10*3/uL (0.00-0.10); Basophils % (A) 0.4 %; Eosinophils # (A) 0.11 X 10*3/uL (0.04-0.35); Eosinophils % (A) 1.6 %; HCT 30.2 % (37.2-46.3); HGB 9.8 g/dL (12.0-15.0); Immature Grans, Automated 0.3 %; Lymphocytes # (A) 1.03 X 10*3/uL (0.90-5.00); Lymphocytes % (A) 14.7 %; MCH 30.8 pg (27.0-32.0); MCHC 32.5 g/dL (32.0-37.0); Mean Platelet Volume 9.7 fL (9.5-12.2); Monocytes # (A) 0.46 X 10*3/uL (0.20-1.00); Monocytes % (A) 6.6 %; NRBC Per 100 WBC 0 /100 WBCS (0.0-0.0); Neutrophils # (A) 5.37 X 10*3/uL (1.80-7.70); Neutrophils % (A) 76.4 %; Platelet Count 214 X 10*3/uL (140-440); RBC 3.18 X 10*6/uL (4.10-5.20); RDW 13.3 % (11.5-14.5); WBC 7.02 X 10*3/uL (4.50-10.00)
[2022-01-18 11:12] LABS: African American GFR (CKD) 84.8 (60.0-200.0); Albumin 3.9 g/dL (3.8-4.9); Albumin/Globulin Ratio 1.95 (1.60-3.17); Anion Gap 9.4 mmol/L (10.00-18.00); BUN/Creat Ratio 21.63 Ratio (12.00-20.00); Blood Urea Nitrogen 17.3 mg/dL (9.0-27.0); Calcium 8.3 mg/dL (8.7-10.3); Carbon Dioxide 21.6 mmol/L (20.0-27.5); Non-African American GFR(CKD) 73.1 (60.0-200.0); Potassium 4.2 mmol/L (3.5-5.5); Total Bilirubin 0.4 mg/dL (0.30-1.20); Total Protein 5.9 g/dL (6.2-8.2)
--- NOTE | 2022-01-18 11:41 | P.PN ---
<Umer Perea - Last Filed: 01/18/22 11:29> Subjective Progress Note Date: 01/18/22 History of Presenting Illness: Patient is a very pleasant 71-year-old female with a past medical history of CVA with left-sided deficits, hypertension, migraines, GERD, fibromyalgia, and osteoarthritis. She is currently admitted under Gen. surgery team status post exploratory laparotomy with repair of hiatal hernia and lysis of adhesions completed by Dr. Crews. We have been consulted for continued medical management throughout hospitalization. Physical exam: Patient was seen and fully evaluated at the bedside this morning. She continues to have diffuse abdominal discomfort, but reports improvement of pain from yesterday. States that she is passing flatus, but denies bowel movement as of yet. Pt did have difficulties with urinary retention. She was straight catheterized x 2 secondary to urinary retention and a Hull catheter was placed yesterday afternoon. Discussed with RN will need to pull Hull catheter later today for voiding trial as RN reports general surgery plans for discharge tomorrow morning. Diet was increased to full liquid and patient tolerating well. Hgb dropped slightly, but remains stable at 9.8. Sodium also decreased down to 128, will repeat this afternoon. Pt remains on IV fluids with 0.9% NS. We will discontinue now that pt is tolerating full liquid diet. Vital signs reviewed and stable. General: Nontoxic, no distress and appears stated age. Derm: Skin warm and dry, normal coloration for ethnicity. Head: Atraumatic, normocephalic and symmetric. Eyes: EOMs intact, no lid lag, and anicteric sclera Mouth: no lip lesions, mucus membranes moist Cardiovascular: regular rate and rhythm with normal S1S2, no murmur, positive posterior tibial pulses bilaterally, and cap refill < 2 seconds. Lungs: Respirations even, regular, and unlabored on room air. Lungs CTA bilaterally, no rhonchi, no rales, no wheezing, and no accessory muscle usage. Abdominal: taut distended, tenderness to palpation, postsurgical dressings to abdomen intact. Hull catheter in place. Ext: ROM intact. No gross muscle atrophy, no edema, no contractures Neuro: Speech clear, face symmetrical and CN II-XII grossly intact with no noted focal neuro deficits noted at this time. Patient does report however that she does have slight weakness to left upper and left lower extremity at times from previous CVA. Psych: Alert and oriented to person, place, time, and situation. Appropriate and pleasant affect. Assessment and Plan of Care: Status post exploratory laparotomy with repair of hiatal hernia and lysis of adhesions Postoperative pain -Surgical procedure completed by Dr. Crews 01/16/22. Patient is postop day 2. -Surgical Management per primary admitting general surgery team including wound care, postsurgical dressing changes, pain management, DVT prophylaxis. -Patient currently on DVT prophylaxis with Lovenox. -Pain management with Toradol, Percocet, and Dilaudid if needed. -Encourage incentive spirometry 10-15 times hourly while awake. Postoperative hypoxia, resolved continue to encourage incentive spirometry 10-15 times hourly while awake Postoperatve blood loss, expected finding -We will continue to monitor with repeat a.m. labs. Hypertension -Monitor vital signs and continue daily medication regimen with amlodipine GERD -Continuation of daily medication regimen with Pepcid 20 mg twice daily and Carafate 1 g with meals twice daily. Fibromyalgia with chronic pain syndrome History of CVA with left-sided residual deficits -Symptomatic and supportive treatment. -Continuation of Requip 5 mg 3 times daily Anxiety and depression -Continue daily medication regimen with amitriptyline and duloxetine. Thank you for allowing us to participate in the care of this pleasant patient. Do not hesitate to contact us with questions. Someone can be reached from the [facility] hospitalist group all hours of the day at [phone] or via [email or web address]. Objective - Vital Signs Vital signs: Vital Signs Temp 97.8 F 01/18/22 08:00 Pulse 85 01/18/22 08:00 Resp 18 01/18/22 08:00 BP 121/77 01/18/22 08:00 Pulse Ox 96 01/18/22 08:00 Intake & Output 01/17/22 01/18/22 01/18/22 18:59 06:59 18:59 Output Total 600 1050 Balance -600 -1050 Output: Urine 600 1050 Straight 600 Other: Voiding Method External Catheter - Labs CBC & Chem 7: 01/18/22 05:22 01/18/22 05:22 Labs: Abnormal Lab Results - Last 24 Hours (Table) 01/18/22 Range/Units 05:22 RBC 3.18 L (4.10-5.20) X 10*6/uL Hgb 9.8 L (12.0-15.0) g/dL Hct 30.2 L (37.2-46.3) % <Jose De Jesus Cedillo - Last Filed: 01/18/22 16:01> Subjective I reviewed the documentation as provided by the [place] above, who is the original author of this note. I agree with the documented assessment and plan, with the following changes: None Objective - Vital Signs Vital signs: Vital Signs Temp 97.8 F 01/18/22 08:00 Pulse 85 01/18/22 08:00 Resp 18 01/18/22 08:00 BP 121/77 01/18/22 08:00 Pulse Ox 96 01/18/22 08:00 Intake & Output 01/17/22 01/18/22 01/18/22 18:59 06:59 18:59 Intake Total 800 Output Total 600 1050 Balance -600 -1050 800 Intake: Intake, IV Titration 800 Amount Sodium Chloride 0.9% 1, 800 000 ml @ 100 mls/hr IV . Q10H [facility] Rx#:[id number] Output: Urine 600 1050 Straight 600 Other: Voiding Method External Catheter Indwelling Catheter - Labs CBC & Chem 7: 01/18/22 05:22 01/18/22 15:34 Labs: Abnormal Lab Results - Last 24 Hours (Table) 01/18/22 01/18/22 01/18/22 Range/Units 05:22 05:22 15:34 RBC 3.18 L (4.10-5.20) X 10*6/uL Hgb 9.8 L (12.0-15.0) g/dL Hct 30.2 L (37.2-46.3) % Sodium 128 L 132 L (135-145) mmol/L Anion Gap 9.40 L (10.00-18.00) mmol/L BUN/Creatinine Ratio 21.63 H (12.00-20.00) Ratio Calcium 8.3 L 8.3 L (8.7-10.3) mg/dL AST 69 H 66 H (13-35) U/L ALT 96 H 81 H (8-44) U/L Total Protein 5.9 L (6.2-8.2) g/dL
--- NOTE | 2022-01-18 15:46 | P.PN ---
Subjective Progress Note Date: 01/18/22 CHIEF COMPLAINT: GERD HISTORY OF PRESENT ILLNESS: Patient status post diagnostic laparoscopy, exploratory laparotomy, lysis of adhesions and repair of hiatal hernia with core bio mesh for extensive intraperitoneal adhesions and hiatal hernia. Postop day #2. Patient's upper GI shows no extravasation of contrast. Presbyesophagus. Patient is currently on full liquids. She does complain of some abdominal pain. Denies any nausea or vomiting. Reports eating only a small amount of the full liquids. Afebrile. She had issues with urinary retention and had Hull catheter placed. WBC 11.06 down to 7.02 hemoglobin 9.8 platelets 214 sodium 128 creatinine 0.8 LFTs trending down Patient seen and examined with Dr. Crews PHYSICAL EXAM: VITAL SIGNS: Reviewed. GENERAL: Well-developed in no acute distress. HEENT: No sclera icterus. Extraocular movements grossly intact. Moist buccal mucosa. Head is atraumatic, normocephalic. ABDOMEN: Soft. Nondistended NEUROLOGIC: Alert and oriented. Cranial nerves II through XII grossly intact. ASSESSMENT: 1. Status post diagnostic laparoscopy, exploratory laparotomy, lysis of adhesions and repair of hiatal hernia with core bio mesh for extensive in traperitoneal adhesions and hiatal hernia 2. Urinary retention has Hull catheter PLAN: -Continue full liquids -Hyponatremia management per medicine service -Continue pain medication -Anticipate discharge possibly tomorrow -DVT prophylaxis Kristix Physician Wood Model Maker note has been reviewed by physician. Signing provider agrees with the documented findings, assessment, and plan of care. Objective - Vital Signs Vital signs: Vital Signs Temp 97.8 F 01/18/22 08:00 Pulse 85 01/18/22 08:00 Resp 18 01/18/22 08:00 BP 121/77 01/18/22 08:00 Pulse Ox 96 01/18/22 08:00 Intake & Output 01/17/22 01/18/22 01/18/22 18:59 06:59 18:59 Intake Total 800 Output Total 600 1050 Balance -600 -1050 800 Intake: Intake, IV Titration 800 Amount Sodium Chloride 0.9% 1, 800 000 ml @ 100 mls/hr IV . Q10H [facility] Rx#:[id number] Output: Urine 600 1050 Straight 600 Other: Voiding Method External Catheter Indwelling Catheter - Labs CBC & Chem 7: 01/18/22 05:22 01/18/22 05:22 Labs: Abnormal Lab Results - Last 24 Hours (Table) 01/18/22 01/18/22 Range/Units 05:22 05:22 RBC 3.18 L (4.10-5.20) X 10*6/uL Hgb 9.8 L (12.0-15.0) g/dL Hct 30.2 L (37.2-46.3) % Sodium 128 L (135-145) mmol/L Anion Gap 9.40 L (10.00-18.00) mmol/L BUN/Creatinine Ratio 21.63 H (12.00-20.00) Ratio Calcium 8.3 L (8.7-10.3) mg/dL AST 69 H (13-35) U/L ALT 96 H (8-44) U/L Total Protein 5.9 L (6.2-8.2) g/dL
[2022-01-18 16:00] LABS: ALT 81 U/L (4-34); AST 66 U/L (14-36); African American GFR (CKD) 85 (>60 ml/min/1.73 sqM); Albumin 3.8 g/dL (3.5-5.0); Albumin/Globulin Ratio 1.4; Alkaline Phosphatase 98 U/L (38-126); Anion Gap 8 mmol/L; Blood Urea Nitrogen 13 mg/dL (7-17); Calcium 8.3 mg/dL (8.4-10.2); Carbon Dioxide 25 mmol/L (22-30); Chloride 99 mmol/L (98-107); Globulin 2.8 g/dL; Glucose 81 mg/dL (74-99); Non-African American GFR(CKD) 74 (>60 ml/min/1.73 sqM); Potassium 3.8 mmol/L (3.5-5.1); Sodium 132 mmol/L (137-145); Total Bilirubin 0.7 mg/dL (0.2-1.3); Total Protein 6.6 g/dL (6.3-8.2)
[2022-01-18] MEDS: AMITRIPTYLINE HCL 50 MG TAB PO SCH (19:52)
[2022-01-18] MEDS: DULoxetine HCL 60 MG CAPSULE.DR PO SCH (19:52)
[2022-01-18] MEDS: amLODIPine 5 MG TAB PO SCH (19:52)
[2022-01-19] MEDS: oxyCODONE-APAP 5-325MG 1 EACH TAB PO PRN ×2 (05:23→20:50)
[2022-01-19] MEDS: ENOXAPARIN 40 MG/0.4 ML SYRINGE SQ SCH (08:12)
[2022-01-19] MEDS: FAMOTIDINE 20 MG TAB PO SCH ×2 (08:12→20:43)
[2022-01-19] MEDS: SUCRALFATE 1 GM TAB PO SCH ×2 (08:12→16:30)
[2022-01-19 08:40] LABS: HCT 33.2 % (37.2-46.3); HGB 11.3 g/dL (12.0-15.0); MCH 31.5 pg (27.0-32.0); MCV 92.5 fL (80.0-97.0); Mean Platelet Volume 9.1 fL (9.5-12.2); NRBC Per 100 WBC 0 /100 WBCS (0.0-0.0); Platelet Count 237 X 10*3/uL (140-440); RBC 3.59 X 10*6/uL (4.10-5.20); RDW 12.9 % (11.5-14.5); WBC 7.83 X 10*3/uL (4.50-10.00)
[2022-01-19 09:40] LABS: African American GFR (CKD) 99.6 (60.0-200.0); Albumin/Globulin Ratio 1.9 (1.60-3.17); Anion Gap 11.9 mmol/L (10.00-18.00); BUN/Creat Ratio 11.57 Ratio (12.00-20.00); Blood Urea Nitrogen 8.1 mg/dL (9.0-27.0); Calcium 8.6 mg/dL (8.7-10.3); Carbon Dioxide 23.1 mmol/L (20.0-27.5); Globulin 2.1 g/dL (1.6-3.3); Potassium 3.9 mmol/L (3.5-5.5); Total Bilirubin 0.6 mg/dL (0.30-1.20); Total Protein 6.1 g/dL (6.2-8.2)
--- NOTE | 2022-01-19 11:10 | P.PN ---
Progress Note - Text Progress Note Date: 01/19/22 Patient states she doesn't feel well today. She had her Hull cath removed overnight. She has been able to void. On exam vital signs are stable. Abdomen soft. There is some minimal incisional tenderness. Status post repair of recurrent hiatal hernia. Patient will be observed for another day prior to discharge.
--- NOTE | 2022-01-19 15:46 | P.PN ---
Subjective Progress Note Date: 01/19/22 (delayed charting seen at 1015) Principal diagnosis: abdominal pain Patient is 71-year-old female with a history of CVA with left-sided deficits, hypertension, migraines, GERD, fibromyalgia, and osteoarthritis. Currently here with elective hiatal hernia repair with lysis of adhesions. Patient seen and examined at bedside. She continues to complain of pain all over and just feeling stiff and not well. She continues to have some abdominal pain. She is not eating and drinking well. General: non toxic, no distress, appears at stated age Derm: warm, dry Head: atraumatic, normocephalic, symmetric Eyes: EOMI, no lid lag, anicteric sclera Mouth: no lip lesion, mucus membranes moist Cardiovascular: S1S2 reg, no murmur, positive posterior tibial pulse bilateral, Lungs: CTA bilateral, no rhonchi, no rales , no accessory muscle use Abdominal: soft, tender to palpation epigastric, no guarding, no appreciable organomegaly Ext: no gross muscle atrophy, no edema, no contractures Neuro: CN II-XI grossly intact, no focal neuro deficits Psych: Alert, oriented, appropriate affect Assessment/plan: Hyponatremia, appears euvolemic - patient with hypontremia dating back to 2019 and appears long staning likely related to cymbalta and amitriptyline -Repeat sodium levels in a.m. -Check urine sodium, urine osmole, and serum osmole -Outpatient follow-up with primary for further monitoring of sodium levels. -Encourage solute intake. Ensure added Acute blood loss anemia - post op and anticipated - mild, no idication for transfusion - follow-up as outpatient Status post hiatal hernia repair -Management per primary team Postop hypoxia, resolved Chronic: GERD Hypertension FIbromyalgia HX of CVA iwth left sided deficits Anxiety/depression DVT prophylaxis: SCDs Discussed with: Patient, nursing Anticipated discharge: per surgery Anticipated discharge place: home A total of 35 minutes was spent on the care of this complex patient more than 50% of the time was spent in counseling and care coordination. Active Medications Generic Name Dose Route Start Last Admin Trade Name Freq PRN Reason Stop Dose Admin Acetaminophen 650 mg 01/16/22 13:21 Acetaminophen Tab 325 Mg Tab PO 02/15/22 13:22 Q6HR PRN Mild Pain or Fever >= 100.5 Amitriptyline HCl 50 mg 01/16/22 21:00 01/18/22 19:52 Amitriptyline Hcl 50 Mg Tab PO 50 mg HS MARY Administration Amlodipine Besylate 5 mg 01/16/22 21:00 01/18/22 19:52 Amlodipine 5 Mg Tab PO 5 mg HS MARY Administration Duloxetine HCl 60 mg 01/16/22 21:00 01/18/22 19:52 Duloxetine Hcl 60 Mg Capsule.Dr PO 60 mg HS MARY Administration Enoxaparin Sodium 40 mg 01/18/22 09:00 01/19/22 08:12 Enoxaparin 40 Mg/0.4 Ml Syringe SQ 40 mg DAILY MARY Administration Famotidine 20 mg 01/16/22 21:00 01/19/22 08:12 Famotidine 20 Mg Tab PO 20 mg BID MARY Administration Hydromorphone HCl 1 mg 01/16/22 15:49 01/17/22 09:59 Hydromorphone 1 Mg/Ml 1 Ml Syringe IVP 1 mg Q3HR PRN Administration Moderate to Severe Pain Naloxone HCl 0.2 mg 01/16/22 13:21 Naloxone 0.4 Mg/Ml 1 Ml Vial IV 02/15/22 13:22 Q2M PRN Opioid Reversal Ondansetron HCl 4 mg 01/16/22 13:21 Ondansetron 4 Mg/2 Ml Vial IVP 02/15/22 13:22 Q6HR PRN Nausea And Vomiting Oxycodone/Acetaminophen 1 each 01/16/22 13:21 01/19/22 05:23 Oxycodone-Apap 5-325mg 1 Each Tab PO 02/15/22 13:22 1 each Q4HR PRN Administration Pain Ropinirole HCl 5 mg 01/16/22 22:00 01/19/22 15:04 Ropinirole Hcl 1 Mg Tab PO 5 mg TID MARY Administration Sucralfate 1 gm 01/16/22 17:30 01/19/22 08:12 Sucralfate 1 Gm Tab PO 1 gm AC-BID MARY Administration Objective - Vital Signs Vital signs: Vital Signs Temp 97.6 F 01/19/22 14:00 Pulse 101 H 01/19/22 14:00 Resp 17 01/19/22 14:00 BP 129/73 01/19/22 14:00 Pulse Ox 98 01/19/22 14:00 Intake & Output 01/18/22 01/19/22 01/19/22 18:59 06:59 18:59 Intake Total 800 1270 Output Total 3500 1700 300 Balance -2700 -430 -300 Intake: Intake, IV Titration 800 Amount Sodium Chloride 0.9% 1, 800 000 ml @ 100 mls/hr IV . Q10H [facility] Rx#:[id number] Oral 1270 Output: Urine 3500 1700 300 Other: Voiding Method Indwelling Catheter - Labs CBC & Chem 7: 01/19/22 05:50 01/19/22 05:50 Labs: Abnormal Lab Results - Last 24 Hours (Table) 01/18/22 01/19/22 01/19/22 Range/Units 15:34 05:50 05:50 RBC 3.59 L (4.10-5.20) X 10*6/uL Hgb 11.3 L (12.0-15.0) g/dL Hct 33.2 L (37.2-46.3) % MPV 9.1 L (9.5-12.2) fL Sodium 132 L 129 L (137-145) mmol/L Chloride 94 L (96-109) mmol/L BUN 8.1 L (9.0-27.0) mg/dL BUN/Creatinine Ratio 11.57 L (12.00-20.00) Ratio Calcium 8.3 L 8.6 L (8.4-10.2) mg/dL AST 66 H 45 H (14-36) U/L ALT 81 H 67 H (4-34) U/L Total Protein 6.1 L (6.2-8.2) g/dL
[2022-01-19] MEDS: ACETAMINOPHEN TAB 325 MG TAB PO PRN (20:42)
[2022-01-19] MEDS: AMITRIPTYLINE HCL 50 MG TAB PO SCH (20:43)
[2022-01-19] MEDS: amLODIPine 5 MG TAB PO SCH (20:43)
[2022-01-19] MEDS: DULoxetine HCL 60 MG CAPSULE.DR PO SCH (20:43)
[2022-01-20] MEDS: oxyCODONE-APAP 5-325MG 1 EACH TAB PO PRN ×2 (04:57→21:12)
[2022-01-20] MEDS: FAMOTIDINE 20 MG TAB PO SCH ×2 (07:10→21:12)
[2022-01-20] MEDS: SUCRALFATE 1 GM TAB PO SCH ×2 (07:10→16:11)
[2022-01-20] MEDS: ENOXAPARIN 40 MG/0.4 ML SYRINGE SQ SCH (07:10)
[2022-01-20 08:21] LABS: African American GFR (CKD) >90 (>60 ml/min/1.73 sqM); Anion Gap 7 mmol/L; Blood Urea Nitrogen 10 mg/dL (7-17); Calcium 8.3 mg/dL (8.4-10.2); Carbon Dioxide 21 mmol/L (22-30); Chloride 94 mmol/L (98-107); Glucose 101 mg/dL (74-99); Non-African American GFR(CKD) 89 (>60 ml/min/1.73 sqM); Potassium 3.7 mmol/L (3.5-5.1); Sodium 122 mmol/L (137-145)
[2022-01-20] MEDS: ACETAMINOPHEN TAB 325 MG TAB PO PRN ×2 (08:55→17:14)
--- NOTE | 2022-01-20 10:03 | P.PN ---
Subjective Progress Note Date: 01/20/22 Principal diagnosis: abdominal pain Patient is 71-year-old female with a history of CVA with left-sided deficits, hypertension, migraines, GERD, fibromyalgia, and osteoarthritis. Currently here with elective hiatal hernia repair with lysis of adhesions. Patient seen and examined at bedside. She continues to complain of pain all over and just feeling stiff and not well. She continues to have some abdominal pain. She is not eating and drinking well. General: non toxic, no distress, appears at stated age Derm: warm, dry Head: atraumatic, normocephalic, symmetric Eyes: EOMI, no lid lag, anicteric sclera Mouth: no lip lesion, mucus membranes moist Cardiovascular: S1S2 reg, no murmur, positive posterior tibial pulse bilateral, Lungs: CTA bilateral, no rhonchi, no rales , no accessory muscle use Abdominal: soft, tender to palpation epigastric, no guarding, no appreciable organomegaly Ext: no gross muscle atrophy, no edema, no contractures Neuro: CN II-XI grossly intact, no focal neuro deficits Psych: Alert, oriented, appropriate affect Assessment/plan: SAIDH -Off amatryptline and cymbalta -Patient with hypontremia dating back to 2019 and appears long standing -Repeat sodium levels in a.m. - Consult nephro- d/w Dr Schwab added sodium chloride tablets - 1.5L fluid restriction -Outpatient follow-up with primary for further monitoring of sodium levels. -Encourage solute intake. Ensure Acute blood loss anemia - post op and anticipated - mild, no idication for transfusion - follow-up as outpatient Status post hiatal hernia repair -Management per primary team Transaminitis - mild, improving - follow-up as outpatient Postop hypoxia, resolved Chronic: GERD Hypertension FIbromyalgia HX of CVA iwth left sided deficits Anxiety/depression DVT prophylaxis: SCDs Discussed with: Patient, nursing Anticipated discharge: per surgery Anticipated discharge place: home A total of 35 minutes was spent on the care of this complex patient more than 50% of the time was spent in counseling and care coordination. Active Medications Generic Name Dose Route Start Last Admin Trade Name Freq PRN Reason Stop Dose Admin Acetaminophen 650 mg 01/16/22 13:21 01/20/22 08:55 Acetaminophen Tab 325 Mg Tab PO 02/15/22 13:22 650 mg Q6HR PRN Administration Mild Pain or Fever >= 100.5 Amlodipine Besylate 5 mg 01/16/22 21:00 01/19/22 20:43 Amlodipine 5 Mg Tab PO 5 mg HS MARY Administration Enoxaparin Sodium 40 mg 01/18/22 09:00 01/20/22 07:10 Enoxaparin 40 Mg/0.4 Ml Syringe SQ 40 mg DAILY MARY Administration Famotidine 20 mg 01/16/22 21:00 01/20/22 07:10 Famotidine 20 Mg Tab PO 20 mg BID MARY Administration Hydromorphone HCl 1 mg 01/16/22 15:49 01/17/22 09:59 Hydromorphone 1 Mg/Ml 1 Ml Syringe IVP 1 mg Q3HR PRN Administration Moderate to Severe Pain Naloxone HCl 0.2 mg 01/16/22 13:21 Naloxone 0.4 Mg/Ml 1 Ml Vial IV 02/15/22 13:22 Q2M PRN Opioid Reversal Ondansetron HCl 4 mg 01/16/22 13:21 Ondansetron 4 Mg/2 Ml Vial IVP 02/15/22 13:22 Q6HR PRN Nausea And Vomiting Oxycodone/Acetaminophen 1 each 01/16/22 13:21 01/20/22 04:57 Oxycodone-Apap 5-325mg 1 Each Tab PO 02/15/22 13:22 1 each Q4HR PRN Administration Pain Ropinirole HCl 5 mg 01/16/22 22:00 01/20/22 07:10 Ropinirole Hcl 1 Mg Tab PO 5 mg TID MARY Administration Sodium Chloride 1 gm 01/20/22 09:45 Sodium Chloride Tab 1 Gm Tab PO BID MARY Sucralfate 1 gm 01/16/22 17:30 01/20/22 07:10 Sucralfate 1 Gm Tab PO 1 gm AC-BID MARY Administration Objective - Vital Signs Vital signs: Vital Signs Temp 97.9 F 01/20/22 00:58 Pulse 105 H 01/20/22 00:58 Resp 16 01/20/22 00:58 BP 100/69 01/20/22 00:58 Pulse Ox 94 L 01/20/22 00:58 Intake & Output 01/19/22 01/20/22 01/20/22 18:59 06:59 18:59 Output Total 300 Balance -300 Output: Urine 300 Other: Voiding Method Bedside Commode # Voids 2 1 - Labs CBC & Chem 7: 01/19/22 05:50 01/20/22 07:45 Labs: Abnormal Lab Results - Last 24 Hours (Table) 01/19/22 01/19/22 01/20/22 Range/Units 17:04 17:04 07:45 Sodium 122 L (137-145) mmol/L Chloride 94 L (98-107) mmol/L Carbon Dioxide 21 L (22-30) mmol/L Glucose 101 H (74-99) mg/dL Osmolality 257 L (280-301) mosm/kg Calcium 8.3 L (8.4-10.2) mg/dL TSH 0.392 L (0.465-4.680) mIU/L
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
[2022-01-20] MEDS: SODIUM CHLORIDE TAB 1 GM TAB PO SCH ×2 (10:29→21:33)
--- NOTE | 2022-01-20 11:19 | P.PN ---
Progress Note - Text Progress Note Date: 01/20/22 Patient states she feels better overall. She has minimal complaints of incisional pain. She is tolerating diet. If her patient's found to be severely hyponatremic. Her sodium level was 122 this morning. The medical service and nephrology service is addressing this. Patient will be discharged home once stable from a medical standpoint. She is doing well from a surgical standpoint. Due to her hiatal hernia surgery she will need to remain on a full liquid diet.
[2022-01-20 12:29] LABS: African American GFR (CKD) >90 (>60 ml/min/1.73 sqM); Anion Gap 8 mmol/L; Blood Urea Nitrogen 10 mg/dL (7-17); Calcium 8.4 mg/dL (8.4-10.2); Carbon Dioxide 20 mmol/L (22-30); Chloride 94 mmol/L (98-107); Glucose 103 mg/dL (74-99); Non-African American GFR(CKD) 88 (>60 ml/min/1.73 sqM); Potassium 3.7 mmol/L (3.5-5.1); Sodium 122 mmol/L (137-145)
[2022-01-20] MEDS: amLODIPine 5 MG TAB PO SCH (21:14)
[2022-01-20] MEDS: ONDANSETRON 4 MG/2 ML VIAL IVP PRN (21:56)
[2022-01-21] MEDS: ENOXAPARIN 40 MG/0.4 ML SYRINGE SQ SCH (08:07)
[2022-01-21] MEDS: FAMOTIDINE 20 MG TAB PO SCH ×2 (08:08→21:06)
[2022-01-21] MEDS: ACETAMINOPHEN TAB 325 MG TAB PO PRN (08:08)
[2022-01-21] MEDS: SODIUM CHLORIDE TAB 1 GM TAB PO SCH ×2 (08:09→21:06)
[2022-01-21] MEDS: SUCRALFATE 1 GM TAB PO SCH ×2 (08:49→17:09)
[2022-01-21 09:01] LABS: Basophils # (A) 0.05 X 10*3/uL (0.00-0.10); Basophils % (A) 0.6 %; Eosinophils # (A) 0.59 X 10*3/uL (0.04-0.35); Eosinophils % (A) 7.7 %; HCT 30.7 % (37.2-46.3); HGB 10.5 g/dL (12.0-15.0); Immature Grans, Automated 0.3 %; Lymphocytes # (A) 1.17 X 10*3/uL (0.90-5.00); Lymphocytes % (A) 15.2 %; MCH 31.3 pg (27.0-32.0); MCHC 34.2 g/dL (32.0-37.0); MCV 91.4 fL (80.0-97.0); Mean Platelet Volume 8.9 fL (9.5-12.2); Monocytes % (A) 7.8 %; NRBC Per 100 WBC 0 /100 WBCS (0.0-0.0); Neutrophils # (A) 5.28 X 10*3/uL (1.80-7.70); Neutrophils % (A) 68.4 %; Platelet Count 254 X 10*3/uL (140-440); RBC 3.36 X 10*6/uL (4.10-5.20); RDW 12.9 % (11.5-14.5); WBC 7.71 X 10*3/uL (4.50-10.00)
[2022-01-21 09:07] LABS: African American GFR (CKD) 99.6 (60.0-200.0); Albumin 3.7 g/dL (3.8-4.9); Albumin/Globulin Ratio 1.61 (1.60-3.17); Anion Gap 11.5 mmol/L (10.00-18.00); BUN/Creat Ratio 10.29 Ratio (12.00-20.00); Blood Urea Nitrogen 7.2 mg/dL (9.0-27.0); Calcium 8.4 mg/dL (8.7-10.3); Carbon Dioxide 19.5 mmol/L (20.0-27.5); Globulin 2.3 g/dL (1.6-3.3); Potassium 3.7 mmol/L (3.5-5.5); Total Bilirubin 0.4 mg/dL (0.30-1.20)
--- NOTE | 2022-01-21 09:42 | P.PN ---
Subjective Progress Note Date: 01/21/22 Pt doing well today. Started on salt tabs yesterday, on 1500cc fluid restriction. Na is up to 125. Objective - Vital Signs Vital signs: Vital Signs Temp 98.4 F 01/21/22 07:35 Pulse 91 01/21/22 07:35 Resp 18 01/21/22 07:35 BP 115/77 01/21/22 07:35 Pulse Ox 96 01/21/22 07:35 Intake & Output 01/20/22 01/21/22 01/21/22 18:59 06:59 18:59 Intake Total 480 Balance 480 Intake: Oral 480 Other: Voiding Method Bedside Commode Bedside Commode # Voids 4 1 - Exam Gen: awake, alert HEENT: normocephalic, atraumatic, good hearing acuity, moist mucous membranes Resp: good air exchange, breathing comfortably with no accessory muscle use CVS: good distal perfusion x 4, GI: soft, NTTP, ND : no SPT, no CVAT, robledo catheter not present MSK: no pitting edema, no clubbing Neuro: non-focal, moving all extremities Psych: cooperative, euthymic mood - Labs CBC & Chem 7: 01/21/22 04:00 01/21/22 04:00 Labs: Abnormal Lab Results - Last 24 Hours (Table) 01/20/22 01/21/22 01/21/22 Range/Units 11:47 04:00 04:00 RBC 3.36 L (4.10-5.20) X 10*6/uL Hgb 10.5 L (12.0-15.0) g/dL Hct 30.7 L (37.2-46.3) % MPV 8.9 L (9.5-12.2) fL Eosinophils # 0.59 H (0.04-0.35) X 10*3/uL Sodium 122 L 125 L (137-145) mmol/L Chloride 94 L 94 L (98-107) mmol/L Carbon Dioxide 20 L 19.5 L (22-30) mmol/L BUN 7.2 L (9.0-27.0) mg/dL BUN/Creatinine Ratio 10.29 L (12.00-20.00) Ratio Glucose 103 H (74-99) mg/dL Calcium 8.4 L (8.7-10.3) mg/dL ALT 54 H (8-44) U/L Total Protein 6.0 L (6.2-8.2) g/dL Albumin 3.7 L (3.8-4.9) g/dL Assessment and Plan Assessment: SIADH -Off amatryptline and cymbalta -Patient with hypontremia dating back to 2019 and appears long standing -Repeat sodium levels in a.m. - Consult nephro- d/w Dr Schwab added sodium chloride tablets - 1.5L fluid restriction -Outpatient follow-up with primary for further monitoring of sodium levels. -Encourage solute intake. Ensure Acute blood loss anemia - post op and anticipated - mild, no idication for transfusion - follow-up as outpatient Status post hiatal hernia repair -Management per primary team Transaminitis - mild, improving - follow-up as outpatient GERD Hypertension FIbromyalgia HX of CVA iwth left sided deficits Anxiety/depression -resume home meds DVT prophylaxis: SCDs Anticipated discharge: per surgery Anticipated discharge place: home The patient is medically stable for discharge once she is tolerating a solid diet. She should be counseled on importance of fluid restriction to no more than 1500cc.
--- NOTE | 2022-01-21 11:22 | P.PN ---
Subjective Progress Note Date: 01/21/22 CHIEF COMPLAINT: GERD HISTORY OF PRESENT ILLNESS: Patient status post diagnostic laparoscopy, exploratory laparotomy, lysis of adhesions and repair of hiatal hernia with core bio mesh for extensive intraperitoneal adhesions and hiatal hernia. Postop day #5. Patient is tolerating full liquids. However, she does have poor oral intake. Has been having flatus. Denies bowel movement. She reports that her pain is getting better each day. Afebrile. Sodium level did go up from 122- 125. She is followed by nephrology and medicine service. They do have her on a fluid restriction. WBC 7.71 hemoglobin 10.5 creatinine 0.7. Patient seen and examined with Dr. Crews PHYSICAL EXAM: VITAL SIGNS: Reviewed. GENERAL: Well-developed in no acute distress. HEENT: No sclera icterus. Extraocular movements grossly intact. Moist buccal mucosa. Head is atraumatic, normocephalic. ABDOMEN: Soft. Nondistended. Incision sites has a small area of bleeding at the top of the incision otherwise clean dry and intact. There is dry blood noted. NEUROLOGIC: Alert and oriented. Cranial nerves II through XII grossly intact. ASSESSMENT: 1. Status post diagnostic laparoscopy, exploratory laparotomy, lysis of adhesions and repair of hiatal hernia with core bio mesh for extensive intraperitoneal adhesions and hiatal hernia 2. Urinary retention resolved 3. Hyponatremia PLAN: -Continue full liquids -Hyponatremia management per medicine service and nephrology -Continue pain medication -Encouraged patient to ambulate -DVT prophylaxis Lovenox Physician Senior Brand Manager note has been reviewed by physician. Signing provider agrees with the documented findings, assessment, and plan of care. Objective - Vital Signs Vital signs: Vital Signs Temp 98.4 F 01/21/22 07:35 Pulse 91 01/21/22 07:35 Resp 18 01/21/22 07:35 BP 115/77 01/21/22 07:35 Pulse Ox 96 01/21/22 07:35 Intake & Output 01/20/22 01/21/22 01/21/22 18:59 06:59 18:59 Intake Total 480 Balance 480 Intake: Oral 480 Other: Voiding Method Bedside Commode Bedside Commode # Voids 4 1 - Labs CBC & Chem 7: 01/21/22 04:00 01/21/22 04:00 Labs: Abnormal Lab Results - Last 24 Hours (Table) 01/20/22 01/21/22 01/21/22 Range/Units 11:47 04:00 04:00 RBC 3.36 L (4.10-5.20) X 10*6/uL Hgb 10.5 L (12.0-15.0) g/dL Hct 30.7 L (37.2-46.3) % MPV 8.9 L (9.5-12.2) fL Eosinophils # 0.59 H (0.04-0.35) X 10*3/uL Sodium 122 L 125 L (137-145) mmol/L Chloride 94 L 94 L (98-107) mmol/L Carbon Dioxide 20 L 19.5 L (22-30) mmol/L BUN 7.2 L (9.0-27.0) mg/dL BUN/Creatinine Ratio 10.29 L (12.00-20.00) Ratio Glucose 103 H (74-99) mg/dL Calcium 8.4 L (8.7-10.3) mg/dL ALT 54 H (8-44) U/L Total Protein 6.0 L (6.2-8.2) g/dL Albumin 3.7 L (3.8-4.9) g/dL
--- NOTE | 2022-01-21 13:05 | P.PN ---
Subjective Patient is seen for follow-up for hyponatremia. Currently improving with serum sodium up to 125 from 120 to yesterday. Patient is maintained on sodium chloride tabs. She had been drinking large amounts of free water prior to admission. No complaints today Objective - Vital Signs Vital signs: Vital Signs Temp 98.4 F 01/21/22 07:35 Pulse 91 01/21/22 07:35 Resp 18 01/21/22 07:35 BP 115/77 01/21/22 07:35 Pulse Ox 96 01/21/22 07:35 Intake & Output 01/20/22 01/21/22 01/21/22 18:59 06:59 18:59 Intake Total 480 Balance 480 Intake: Oral 480 Other: Voiding Method Bedside Commode Bedside Commode # Voids 4 1 - Exam Patient is awake comfortable not in any acute distress. She is currently walking with physical therapy. No edema noted in the legs. TRAINING AND DEVELOPMENT COORDINATOR exam grossly intact - Labs CBC & Chem 7: 01/21/22 04:00 01/21/22 04:00 Labs: Abnormal Lab Results - Last 24 Hours (Table) 01/21/22 01/21/22 Range/Units 04:00 04:00 RBC 3.36 L (4.10-5.20) X 10*6/uL Hgb 10.5 L (12.0-15.0) g/dL Hct 30.7 L (37.2-46.3) % MPV 8.9 L (9.5-12.2) fL Eosinophils # 0.59 H (0.04-0.35) X 10*3/uL Sodium 125 L (135-145) mmol/L Chloride 94 L (96-109) mmol/L Carbon Dioxide 19.5 L (20.0-27.5) mmol/L BUN 7.2 L (9.0-27.0) mg/dL BUN/Creatinine Ratio 10.29 L (12.00-20.00) Ratio Calcium 8.4 L (8.7-10.3) mg/dL ALT 54 H (8-44) U/L Total Protein 6.0 L (6.2-8.2) g/dL Albumin 3.7 L (3.8-4.9) g/dL Assessment and Plan Assessment: 1. Hyponatremia secondary to SIADH and decreased oral intake. Currently improv ing and maintained on sodium chloride tabs. Blood pressure is not high. Will continue with the sodium chloride tabs for now 2. Status post hiatal hernia repair on 01/16/2022 3. History of hypertension but blood pressure currently on the lower side Plan: Continue with sodium chloride tabs Encourage increased intake particularly protein Repeat sodium later this afternoon.
--- NOTE | 2022-01-21 14:00 | P.DS ---
Providers Date of admission: 01/17/22 12:39 Expected date of discharge: 01/21/22 Attending physician: Tyrel Crews Consults: 01/16/22 13:21 Consult Physician Routine Consulting Provider: Ros Sotelo Consult Reason/Comments: Medical management Do you want consulting provider notified?: Yes 01/20/22 09:36 Consult Physician Urgent Consulting Provider: Abhijit Schwab Consult Reason/Comments: Siadh Do you want consulting provider notified?: Yes Primary care physician: Jv [facility] Course: Discharge diagnosis 1. Status post diagnostic laparoscopy, exploratory laparotomy, lysis of adhesions and repair of hiatal hernia with core bio mesh for extensive intraperitoneal adhesions and hiatal hernia 2. Urinary retention resolved 3. Hyponatremia Hospital course This a 71-year-old female who has a long-standing history of GERD. Patient has had complaints of recent dysphagia as well. Patient underwent previous open hiatal hernia. Many years ago with a different surgeon. The patient has developed a recurrent hiatal hernia. Patient is status post diagnostic laparoscopy, exploratory laparotomy, lysis of adhesions and repair of hiatal hernia with core bio mesh for extensive intraperitoneal adhesions and hiatal hernia. Patient tolerated surgery well. Her pain is controlled. She has been up and ambulating. She is tolerating a full liquid diet. Her upper GI showed no evidence of leak. She is afebrile. She is having flatus. Patient seen by medicine service as well as nephrology. She had hyponatremia. Hyponatremia management per nephrology and medicine service. Patient has been cleared by medicine service for discharge. Patient is stable for discharge. Please refer to chart for any further details. Physician Jewel Setter note has been reviewed by physician. Signing provider agrees with the documented findings, assessment, and plan of care. Patient Condition at Discharge: Stable Plan - Discharge Summary Discharge Rx Participant: Yes New Discharge Prescriptions: New oxyCODONE HCL/ACETAMINOPHEN [Percocet 5-325 mg] 1 tab PO Q6HR PRN 3 Days #12 tab PRN Reason: Pain Continue amLODIPine [Norvasc] 5 mg PO HS rOPINIRole HCL [Requip] 5 mg PO TID Sucralfate [Carafate] 1 gm PO BID Famotidine 20 mg PO BID No Action DULoxetine HCL [Cymbalta] 60 mg PO HS Celecoxib [CeleBREX] 200 mg PO HS Amitriptyline HCl [Elavil] 50 mg PO HS Discharge Medication List DULoxetine HCL [Cymbalta] 60 mg PO HS 09/18/16 [History] Celecoxib [CeleBREX] 200 mg PO HS 04/01/18 [History] amLODIPine [Norvasc] 5 mg PO HS 03/29/20 [History] Amitriptyline HCl [Elavil] 50 mg PO HS 03/05/21 [History] rOPINIRole HCL [Requip] 5 mg PO TID 06/18/21 [History] Famotidine 20 mg PO BID 01/11/22 [History] Sucralfate [Carafate] 1 gm PO BID 01/11/22 [History] oxyCODONE HCL/ACETAMINOPHEN [Percocet 5-325 mg] 1 tab PO Q6HR PRN 3 Days #12 tab 01/18/22 [Rx] Follow up Appointment(s)/Referral(s): Tyrel Crews MD [STAFF PHYSICIAN] - 01/31/22 2:00 pm Jv Doe [Primary Care Provider] - 3 Days Activity/Diet/Wound Care/Special Instructions: Medicine service to complete discharge med rec No driving while taking Percocet No lifting over 10 pounds You may shower. No soaking or tub baths for 2 weeks Very light activity until you are reevaluated at your follow up appointment with your surgeon Discharge Disposition: HOME SELF-CARE
[2022-01-21] MEDS: ONDANSETRON 4 MG/2 ML VIAL IVP PRN (18:23)
[2022-01-21] MEDS: amLODIPine 5 MG TAB PO SCH (21:06)
[2022-01-22] MEDS: ACETAMINOPHEN TAB 325 MG TAB PO PRN (08:17)
[2022-01-22] MEDS: ENOXAPARIN 40 MG/0.4 ML SYRINGE SQ SCH (08:18)
[2022-01-22] MEDS: FAMOTIDINE 20 MG TAB PO SCH (08:18)
[2022-01-22] MEDS: SODIUM CHLORIDE TAB 1 GM TAB PO SCH (08:18)
[2022-01-22] MEDS: SUCRALFATE 1 GM TAB PO SCH ×2 (08:18→17:58)
[2022-01-22 09:27] VITALS: PULSE 94; RESP 18
[2022-01-22 11:48] LABS: African American GFR (CKD) >90 (>60 ml/min/1.73 sqM); Anion Gap 10 mmol/L; Blood Urea Nitrogen 8 mg/dL (7-17); Calcium 8.5 mg/dL (8.4-10.2); Carbon Dioxide 22 mmol/L (22-30); Chloride 96 mmol/L (98-107); Glucose 105 mg/dL (74-99); Non-African American GFR(CKD) 89 (>60 ml/min/1.73 sqM); Sodium 128 mmol/L (137-145)
[2022-01-22] MEDS ORDERED: TOLVAPTAN 15 MG 1/2 TABLET PO ONE (12:00)
--- NOTE | 2022-01-22 12:39 | P.PN ---
Subjective Progress Note Date: 01/22/22 CHIEF COMPLAINT: GERD HISTORY OF PRESENT ILLNESS: Patient status post diagnostic laparoscopy, exploratory laparotomy, lysis of adhesions and repair of hiatal hernia with core bio mesh for extensive intraperitoneal adhesions and hiatal hernia. Postop day #6. Patient is tolerating full liquids. Patient did have a bowel movement. On discharge held yesterday due to low sodium. Sodium is now up from 124-128. Afebrile. She's sitting at bedside chair. Patient did complain of urinary frequency and incontinence. She feels she may have a UTI. Patient seen and examined with Dr. Crews PHYSICAL EXAM: VITAL SIGNS: Reviewed. GENERAL: Well-developed in no acute distress. HEENT: No sclera icterus. Extraocular movements grossly intact. Moist buccal mucosa. Head is atraumatic, normocephalic. ABDOMEN: Soft. Nondistended. Incision sites has a small area of bleeding at the top of the incision otherwise clean dry and intact. There is dry blood noted. NEUROLOGIC: Alert and oriented. Cranial nerves II through XII grossly intact. ASSESSMENT: 1. Status post diagnostic laparoscopy, exploratory laparotomy, lysis of adhesions and repair of hiatal hernia with core bio mesh for extensive intr aperitoneal adhesions and hiatal hernia 2. Urinary retention resolved 3. Hyponatremia PLAN: -Patient can be discharge from surgical standpoint when medically cleared -Continue full liquids for 2 weeks after surgery -Hyponatremia management per medicine service and nephrology -Check urinalysis to rule out UTI -Continue pain medication -Encouraged patient to ambulate -DVT prophylaxis Lovenox Physician Patient Financial Representative note has been reviewed by physician. Signing provider agrees with the documented findings, assessment, and plan of care. Objective - Vital Signs Vital signs: Vital Signs Temp 97.4 F L 01/22/22 08:00 Pulse 94 01/22/22 08:00 Resp 18 01/22/22 08:00 BP 109/72 01/22/22 08:00 Pulse Ox 95 01/22/22 08:06 Intake & Output 01/21/22 01/22/22 01/22/22 18:59 06:59 18:59 Intake Total 1160 295 Balance 1160 295 Intake: Oral 1160 295 Other: Voiding Method Bedside Commode Toilet # Voids 5 3 # Bowel Movements 1 - Labs CBC & Chem 7: 01/21/22 04:00 01/22/22 10:32 Labs: Abnormal Lab Results - Last 24 Hours (Table) 01/21/22 01/22/22 Range/Units 15:35 10:32 Sodium 124 L 128 L (137-145) mmol/L Chloride 96 L (98-107) mmol/L Glucose 105 H (74-99) mg/dL
--- NOTE | 2022-01-22 13:31 | P.DS ---
Providers Date of admission: 01/17/22 12:39 Expected date of discharge: 01/22/22 Attending physician: Jose De Jesus Cedillo MD Consults: 01/16/22 13:21 Consult Physician Routine Consulting Provider: Ros Sotelo Consult Reason/Comments: Medical management Do you want consulting provider notified?: Yes 01/20/22 09:36 Consult Physician Urgent Consulting Provider: Abhijit Schwab Consult Reason/Comments: Siadh Do you want consulting provider notified?: Yes 01/21/22 14:17 Consult Physician Routine Consulting Provider: Tyrel Crews Consult Reason/Comments: Post op Mars patient Do you want consulting provider notified?: Yes Primary care physician: Jv [facility] Course: Discharge diagnosis 1. Status post diagnostic laparoscopy, exploratory laparotomy, lysis of adhesions and repair of hiatal hernia with core bio mesh for extensive intraperitoneal adhesions and hiatal hernia 2. Urinary retention resolved 3. Hyponatremia secondary to SIADH 4. Acute blood loss anemia 5. Mild transaminitis Hospital course This a 71-year-old female who has a long-standing history of GERD. Patient has had complaints of recent dysphagia as well. Patient underwent previous open hiatal hernia. Many years ago with a different surgeon. The patient has developed a recurrent hiatal hernia. Patient is status post diagnostic laparoscopy, exploratory laparotomy, lysis of adhesions and repair of hiatal hernia with core bio mesh for extensive intraperitoneal adhesions and hiatal hernia. Patient tolerated surgery well. Her pain is controlled. She has been up and ambulating. She is tolerating a full liquid diet. Her upper GI showed no evidence of leak. She is afebrile. She is having flatus. Patient seen by medicine service as well as nephrology. She had hyponatremia. Hyponatremia management per nephrology and medicine service. Sodium level today is 128 patient was cleared for discharge by nephrology to resume salt tablets. She was told to follow up with nephrology in 1 week. SIADH -Off amatryptline and cymbalta -Patient with hypontremia dating back to 2019 and appears long standing -Repeat sodium levels in a.m. - Consult nephro- d/w Dr Schwab added sodium chloride tablets - 1.5L fluid restriction -Outpatient follow-up with primary nephrology for further monitoring of sodium levels. -Encourage solute intake. Ensure Acute blood loss anemia - post op and anticipated - mild, no idication for transfusion - follow-up as outpatient Status post hiatal hernia repair -Management per primary team Transaminitis - mild, improving - follow-up as outpatient GERD Hypertension FIbromyalgia HX of CVA iwth left sided deficits Anxiety/depression -resume home meds Time spent in discharge process is 35 minutes Assessment: General: non toxic, no distress, appears at stated age Derm: warm, dry Head: atraumatic, normocephalic, symmetric Eyes: EOMI, no lid lag, anicteric sclera Mouth: no lip lesion, mucus membranes moist Cardiovascular: S1S2 reg, no murmur, positive posterior tibial pulse bilateral, Lungs: CTA bilateral, no rhonchi, no rales , no accessory muscle use Abdominal: soft, nontender to palpation, no guarding, no appreciable organomegaly Ext: no gross muscle atrophy, no edema, no contractures Neuro: CN II-XI grossly intact, no focal neuro deficits Psych: Alert, oriented, appropriate affect Patient Condition at Discharge: Stable Plan - Discharge Summary Discharge Rx Participant: Yes New Discharge Prescriptions: New oxyCODONE HCL/ACETAMINOPHEN [Percocet 5-325 mg] 1 tab PO Q6HR PRN 3 Days #12 tab PRN Reason: Pain Sodium Chloride Tab 1 gm PO BID #60 tab Continue amLODIPine [Norvasc] 5 mg PO HS rOPINIRole HCL [Requip] 5 mg PO TID Sucralfate [Carafate] 1 gm PO BID Famotidine 20 mg PO BID Discontinued DULoxetine HCL [Cymbalta] 60 mg PO HS Celecoxib [CeleBREX] 200 mg PO HS Amitriptyline HCl [Elavil] 50 mg PO HS Discharge Medication List amLODIPine [Norvasc] 5 mg PO HS 03/29/20 [History] rOPINIRole HCL [Requip] 5 mg PO TID 06/18/21 [History] Famotidine 20 mg PO BID 01/11/22 [History] Sucralfate [Carafate] 1 gm PO BID 01/11/22 [History] oxyCODONE HCL/ACETAMINOPHEN [Percocet 5-325 mg] 1 tab PO Q6HR PRN 3 Days #12 tab 01/18/22 [Rx] Sodium Chloride Tab 1 gm PO BID #60 tab 01/21/22 [Rx] Follow up Appointment(s)/Referral(s): Laurel Aranda MD [STAFF PHYSICIAN] - 1 Week Jv Doe [Primary Care Provider] - 3 Days (office closed at this time patient to call and make appointments ) Tyrel Crews MD [STAFF PHYSICIAN] - 01/31/22 2:00 pm Activity/Diet/Wound Care/Special Instructions: No driving while taking Percocet No lifting over 10 pounds You may shower. No soaking or tub baths for 2 weeks Very light activity until you are reevaluated at your follow up appointment with your surgeon Continue full liquid diet until seen by surgeon. Discharge Disposition: HOME SELF-CARE
[2022-01-22 15:15] LABS: Appearance,Urine Clear (Clear); Bacteria,Urine Rare /hpf; Bilirubin,Urine Negative (Negative); Blood,Urine Small (Negative); Color,Urine Light Yellow; Glucose,Urine (UA) Negative (Negative); Ketones,Urine Trace (Negative); Leukocyte Esterase,Urine Large (Negative); Nitrite,Urine Negative (Negative); PH, Urine 6.5 (5.0-8.0); Protein,Urine Negative (Negative); RBC,Urine 1 /hpf (0-5); Specific Gravity,Urine 1.005 (1.001-1.035); Urobilinogen,Urine <2.0 mg/dL (<2.0); WBC,Urine 63 /hpf (0-5)
[2022-01-22 15:16] VITALS: BP 97/62; TEMP 98.6
--- NOTE | 2022-01-22 16:04 | PN ---
PROGRESS NOTE Patient is seen for followup for hyponatremia. Patient's sodium had dropped down to 124 yesterday. Today it is 128. She is currently maintained on sodium chloride tabs 1 gram daily. Patient has also been maintained on fluid restriction. Her urine osmolality was 519. No significant nausea and vomiting. Overall, patient states she is eating slightly better today. On examination today, blood pressure was 109/72, heart rate 94 per minute. Patient is afebrile. Examination of the heart: S1, S2. Examination of the lungs: Bilateral breath sounds are heard. Examination of lower extremities shows no evidence of edema. 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 Abdomen is soft, nontender. Labs show sodium 128, potassium 4.0. ASSESSMENT: 1. Hyponatremia associated with increased free water intake with component of SIADH, improved with fluid restriction and sodium chloride tabs. I will give her a dose of tolvaptan and patient could be discharged on sodium chloride tabs and close monitoring of electrolytes as outpatient. 2. Status post hiatal hernia repair on 01/16/2022. 3. History of hypertension. Blood pressure is staying on the lower side. PLAN: Continue with sodium chloride tabs. Increase oral intake, particularly protein. Tolvaptan p.o. x1 today and repeat sodium as outpatient. MMODL / IJN: [id number] /
== END 2022-01-22 19:27 | disposition home or self-care (01) | DRG 327 ==
LOC: OR 09:45 → 4SSUR 14:59
PROVIDERS: ADMIT Internal Medicine; ATTEND Internal Medicine
PROC: 0BUT0JZ Supplement Diaphragm with Synthetic Substitute, Open Approach (ICD-10-PCS; principal; 2022-01-16 10:50)
PROC: 0FB20ZX Excision of Left Lobe Liver, Open Approach, Diagnostic (ICD-10-PCS; principal; 2022-01-16 10:50)
PROC: 0DNW0ZZ Release Peritoneum, Open Approach (ICD-10-PCS; principal; 2022-01-16 10:50)
PROC: 0BJT4ZZ Inspection of Diaphragm, Percutaneous Endoscopic Approach (ICD-10-PCS; principal; 2022-01-16 10:50)
DX: K44.9 Diaphragmatic hernia without obstruction or gangrene (principal); I69.354 Hemiplegia and hemiparesis following cerebral infarction affecting left non-dominant side; E22.2 Syndrome of inappropriate secretion of antidiuretic hormone; D62 Acute posthemorrhagic anemia; K21.00 Gastro-esophageal reflux disease with esophagitis, without bleeding; K66.0 Peritoneal adhesions (postprocedural) (postinfection); M79.7 Fibromyalgia; R09.02 Hypoxemia; K21.9 Gastro-esophageal reflux disease without esophagitis; K22.89 Other specified disease of esophagus; Z87.891 Personal history of nicotine dependence; I10 Essential (primary) hypertension; F41.9 Anxiety disorder, unspecified; F32.A Depression, unspecified; R33.9 Retention of urine, unspecified; R74.01 Elevation of levels of liver transaminase levels; G89.4 Chronic pain syndrome; Z90.89 Acquired absence of other organs; Z90.49 Acquired absence of other specified parts of digestive tract; Z96.653 Presence of artificial knee joint, bilateral; Z96.642 Presence of left artificial hip joint; Z80.8 Family history of malignant neoplasm of other organs or systems; F40.240 Claustrophobia; Z82.0 Family history of epilepsy and other diseases of the nervous system; Z82.49 Family history of ischemic heart disease and other diseases of the circulatory system; Z82.5 Family history of asthma and other chronic lower respiratory diseases; Z83.518 Family history of other specified eye disorder; Z84.1 Family history of disorders of kidney and ureter; Z98.51 Tubal ligation status; Z80.7 Family history of other malignant neoplasms of lymphoid, hematopoietic and related tissues; Z83.3 Family history of diabetes mellitus; Z53.31 Laparoscopic surgical procedure converted to open procedure
CPT/HCPCS: 74240; 80048; 80053; 81001; 83930; 83935; 84295; 84300; 84439; 84443; 85025; 85027; 88307; 88313; 94760

== ENCOUNTER → 2022-05-01 | Outpatient (CLI) | payer MEDICARE ==
[~2022-05-01] MED LIST changes: -ACETAMINOPHEN TAB 500 MG TAB PO PRN; -DEXAMETHASONE SOD PHOSPHATE 4 MG/ML 1 ML VIAL IV ONE; +DOBUTamine DRIP for NUC MED 500 MG in DEXTROSE/WATER 1 250ML.BAG IV PRN; +DOBUTamine DRIP for NUC MED 500 MG/250 ML BAG IV ONE; -HEPARIN SODIUM,PORCINE/PF 5,000 UNIT/0.5 ML SYRINGE SQ PRN; -LACTATED RINGERS 1,000 ML IV SCH; -ONDANSETRON 4 MG/2 ML VIAL IVP ONE
--- NOTE | 2022-05-01 12:18 | CA ---
Dobutamine Stress Echocardiogram Report DelayCheri Age: 72 Gender: F : 1950 Exam Date: 05/01/2022 09:59 Exam Location: [facility] Ordering Physician: Antonio Mccormick MD Referring Physician: ANTONIO MCCORMICK,, Management Trainee Marketing: Africa Schaeffer RDCS Technologist: Ht (in): 67 Wt (lb): 185 Procedure CPT: Indication: R06.02 SOB ICD-9 Codes: Rhythm: Patient History: Cardiac Medications: Medications in past 24 hours: Contrast: Total Dose (mL): Stress Results Protocol: Dobutamine Peak Dose (???g/kg/min): 30 Duration (min:sec): Atropine:(mg) Target HR: 124 Double Product: 32168 Resting HR: 89 Resting BP: 142 / 79 Peak HR: 124 Peak BP: 154 / 66 Max Predicted HR: 146 85 % Max Predicted HR Stress Summary: Baseline EKG revealed normal sinus rhythm without significant ST-T changes. With dobutamine administration the heart rate went up to 124 bpm. There was no ST segment changes to indicate ischemia. This is a negative dobutamine stress test by EKG criteria BP Response: Reason for Termination: Cardiac Symptoms: ECG Analysis Resting EKG: Stress EKG: Arrhythmia: Echo Analysis Base Echo Analysis: Baseline echo images reveal normal wall motion wall thickening of all segments. Low Echo Anaylsis: Peak Echo Analysis: At peak heart rate with dobutamine administration that we will excellent contractility noted. As dobutamine was administered as per protocol there was progressive increase in contractility of all segments suggesting that there is no evidence of any stress-induced ischemia on this study Recovery Echo: MEASUREMENTS (Male/Female) Normal Values CONCLUSIONS Normal dobutamine stress test by EKG criteria without evidence of ischemia Normal dobutamine stress echocardiogram with progressive increase in contractility with dobutamine administration and heart rate of 124 bpm. No ischemia noted Dr. Omer Romero MD (Electronically Signed) Final Date: 01 May 2022 12:17
== END | disposition home or self-care (01) ==
LOC: RADNMMAIN 09:32
PROVIDERS: ATTEND Internal Medicine
DX: R06.02 Shortness of breath (principal)
CPT/HCPCS: 93351

== ENCOUNTER → 2022-05-03 | Outpatient (CLI) | payer MEDICARE ==
--- NOTE | 2022-05-03 14:52 | US ---
EXAMINATION TYPE: US venous doppler duplex LE DATE OF EXAM: 05/03/2022 2:11 PM COMPARISON: NONE CLINICAL HISTORY: M79.89 OTHER SPECIFIED SOFT TISSUE DISORDERS. Bilateral leg swelling SIDE PERFORMED: Bilateral TECHNIQUE: The lower extremity deep venous system is examined utilizing real time linear array sonog soumya with graded compression, doppler sonography and color-flow sonography. VESSELS IMAGED: Common Femoral Vein Deep Femoral Vein Greater Saphenous Vein * Femoral Vein Popliteal Vein Small Saphenous Vein * Proximal Calf Veins (* superficial vessels) Right Leg: Appears negative for DVT Left Leg: Appears negative for DVT Patient unable to tolerate compression at distal left femoral vein IMPRESSION: No evidence for DVT at this time.
== END | disposition home or self-care (01) ==
LOC: RADUSWWP 13:35
PROVIDERS: ATTEND Internal Medicine
DX: R22.43 Localized swelling, mass and lump, lower limb, bilateral (principal)
CPT/HCPCS: 93970

== ENCOUNTER 2022-05-10 08:30 | Day surgery (SDC) | payer MEDICARE ==
[2022-05-09 08:45] VITALS: BMI 29.7
[~2022-05-10 08:30] MED LIST changes: +DEXAMETHASONE SOD PHOSPHATE 4 MG/ML 1 ML VIAL IV ONE; -DOBUTamine DRIP for NUC MED 500 MG in DEXTROSE/WATER 1 250ML.BAG IV PRN; -DOBUTamine DRIP for NUC MED 500 MG/250 ML BAG IV ONE; +LACTATED RINGERS 1,000 ML IV SCH; +MIDAZOLAM 2 MG/2 ML VIAL IV PRN; +ONDANSETRON 4 MG/2 ML VIAL IVP ONE; +Pre Op ABX Message 1 EACH MISC MISCELLANE ONE
[2022-05-10] MEDS: fentaNYL (PF) 50 MCG/ML 2 ML AMP IV ONE ×2 (09:33→12:45)
[2022-05-10] MEDS ORDERED: MIDAZOLAM 2 MG/2 ML VIAL IV ONE (09:33)
[2022-05-10] MEDS ORDERED: ROCURONIUM 10 MG/ML (5 ML VIAL) IV ONE (10:24)
[2022-05-10] MEDS ORDERED: fentaNYL (PF) 50 MCG/ML 2 ML AMP ONE (10:24)
[2022-05-10] MEDS ORDERED: PHENYLEPHRINE-0.9% NACL SYG 1,000 MCG/10 ML SYRINGE ONE (10:24)
[2022-05-10] MEDS ORDERED: MIDAZOLAM 2 MG/2 ML VIAL ONE (10:24)
[2022-05-10] MEDS ORDERED: ROPIVACAINE 5 MG/ML 30 ML VIAL ONE (10:24)
[2022-05-10] MEDS ORDERED: PROPOFOL 10 MG/ML 20 ML VIAL IV ONE (10:24)
[2022-05-10] MEDS ORDERED: LIDOCAINE 2% INJ 20 MG/ML (2 ML VIAL) ONE (10:24)
[2022-05-10] MEDS ORDERED: SODIUM CHLORIDE 0.9% (PF) 10 ML VIAL ONE (10:24)
[2022-05-10] MEDS ORDERED: SUCCINYLCHOLINE CHLORIDE 100 MG/5 ML SYR IV ONE (10:24)
[2022-05-10] MEDS ORDERED: ceFAZolin 1,000 MG in SODIUM CHLORIDE 0.9% 1,000 ML IRRIGATION ONE (10:29)
[2022-05-10 12:07] VITALS: TEMP 97.2
[2022-05-10] MEDS: HYDROmorphone 0.5 MG/0.5 ML SYRINGE IVP PRN ×5 (12:07→12:33)
--- NOTE | 2022-05-10 12:13 | P.OP ---
Date of Procedure: 05/10/22 Preoperative Diagnosis: Hallux valgus right foot Postoperative Diagnosis: Same Procedure(s) Performed: Lapidus bunionectomy right foot Implants: Lapiplasty plates and screws Anesthesia: SYLWIA Surgeon: Cordell Dykes Estimated Blood Loss (ml): 3 Pathology: none sent Condition: stable Disposition: PACU Description of Procedure: Prior to the patient being brought to the operating room, anesthesia administered nerve block on the right lower extremity. Then the patient was brought into the operative room and placed on table in the supine position. Timeout was taken to confirm correct patient identifiers, correct procedure, and correct site of surgery. When all staff in the room were in agreement with the timeout the patient was induced placed under general anesthesia. A well-padded tourniquet was placed on the ankle. The foot was then prepped and draped in usual manner. The foot was exsanguinated and the tourniquet inflated 250 mmHg. Attention was directed over the medial aspect of the first metatarsal phalangeal joint where a linear incision was made between the neurovascular structures. The incision was deepened down to the subcutaneous layer careful to identify, avoid, and retract any neurovascular structures and cauterize any bleeding vessels. Dissection was then carried down to the joint capsule where 2 semi- elliptical converging incisions were made along the medial aspect of the first metatarsal phalangeal joint capsule. The interposing piece of capsule was removed from the surgical field and the capsule reflected from medial aspect of first metatarsal head. The sesamoid apparatus was distracted plantarly in the lateral sesamoid collateral ligament was transected and a lateral capsulotomy performed. Then attention was directed to the dorsal aspect of the foot over the first tarsometatarsal joint. A linear incision was made medial to the extensor hallucis longus tendon with the center of the incision over the first tarsometatarsal joint. The incision was deepened down to the subcutaneous tissue careful to identify, avoid, and retract any neurovascular structures and cauterize any bleeding vessels. Blunt dissection was then carried down to the joint capsule which was incised medial to the extensor hallucis longus tendon area and subperiosteal dissection was performed to reflect the soft tissue away from the joint. An osteotome was used to free the soft tissue from around the joint surfaces to help mobilize the frontal plane correction. A guidewire and placed through the base of the first metatarsal from medial to lateral. This is was used as a joystick for the frontal plane rotation correction. The small fulcrum was placed at the base of the first metatarsal, the joint seeker was also placed at the first tarsometatarsal joint as far lateral as possible. And then the reduction clamp was applied around the first metatarsal and lateral to the second metatarsal. While holding the frontal plane correction the reduction clamp was reduced to close the intermetatarsal angle. Once the amount of correction was acceptable under fluoroscopy, a wire was placed through the reduction clamp to lock the correction in place. The cutting guide was then placed over the joint seeker then held in place with 2 straight pins and then one angled pin so it did not slide dorsally. The bone cuts were then made through the cutting jig. Cutting jig was removed, leaving the [address], as was the fulcrum. The compression/distraction device was then placed over the remaining wires and then opened to allow access to the cut surfaces of bone. Both cut surfaces were removed fully with no remaining pieces. The wound was then irrigated thoroughly with antibiotic saline. Then a 2.0 mm drill bit was used to aggressively fenestrate the conjoining surfaces of the arthrodesis site. The fulcrum was reinserted at the lateral base of the first metatarsal . Then the distraction device was reversed for compression and while holding the great toe dorsiflexed the arthrodesis site was compressed fully. Fluoroscopy was used to check the alignment which showed full compression at the arthrodesis site with maintained correction of the intermetatarsal angle and anatomic alignment of the sesamoids. Threaded olive wire was then inserted across the arthrodesis site for temporary fixation. The medial plate was applied first it was aligned under fluoroscopy and then temporarily fixated. The 2 screw holes closest to the arthrodesis site were filled with the compression/locking screws until they were fully seated. The outer 2 holes were done with straight locking screws. The dorsal straight plate was then positioned under fluoroscopy until correct and then temporarily fixated. The 2 holes closest to the arthrodesis site were filled with the compression/locking screw and the outer holes with the straight locking screws. All extraneous instrumentation was removed and then a final fluoroscopic imaging showed full correction of the intermetatarsal angle, proper placement of hardware, no gapping at the arthrodesis, and the sesamoids anatomically aligned. All wounds were thoroughly irrigated with antibiotic saline. Capsular closure was done with 0 Vicryl in both incisions. All incisions were closed subcutaneously with 4-0 Monocryl. The large dorsal and medial incisions were closed with 3-0 Stratafix in a running subcuticular manner for skin. Dermal glue was applied to all the incisions and allowed to dry. Steri-Strips are then placed across incision and covered with an Arthrex jumpstart dressing. A bulky dry dressings applied to foot. The tourniquet was released capillary refill return to all digits on the foot. The patient then placed in a well-padded, well molded posterior mold/sugar tong splint. The foot was held in neutral position as it dried. Once dry the patient was reversed from general anesthesia and taken recovery with vital signs stable.
[2022-05-10] MEDS ORDERED: LACTATED RINGERS 1,000 ML IV ONE (12:34)
[2022-05-10 13:07] VITALS: RESP 18
--- NOTE | 2022-05-10 13:08 | P.ANPRN ---
Procedure Note - Anesthesia - Nerve Block Performed Right Adductor Canal Time Out Performed: Yes Date of Procedure: 05/10/22 Procedure Start Time: 09:32 Procedure Stop Time: 09:41 Location of Patient: PreOp Indication: Acute Post-Operative Pain, Requested by Surgeon (Dr Dykes) Sedation Type: Sedate with meaningful contact maintained Preparation: Sterile Prep Position: Supine Catheter: None Needle Types: Pajunk Needle Gauge: 21 Ultrasound used to visualize needle placement: Yes Ultrasound used to observe medication spread: Yes Injectate: 0.5% Ropivacaine (see comment for volume) (15cc) Blood Aspirated: No Pain Paresthesia on Injection Noted: No Resistance on Injection: Normal Image Stored and Saved: Yes Events: Uneventful and Well Tolerated
--- NOTE | 2022-05-10 13:11 | P.ANPRN ---
Procedure Note - Anesthesia - Nerve Block Performed Right Popliteal Time Out Performed: Yes Date of Procedure: 05/10/22 Procedure Start Time: 09:42 Procedure Stop Time: 09:49 Location of Patient: PreOp Indication: Acute Post-Operative Pain, Requested by Surgeon (Dr Dykes) Sedation Type: Sedate with meaningful contact maintained Preparation: Sterile Prep Position: Left Lateral Catheter: None Needle Types: Pajunk Needle Gauge: 21 Ultrasound used to visualize needle placement: Yes Ultrasound used to observe medication spread: Yes Injectate: 0.5% Ropivacaine (see comment for volume) (15cc + 5cc PF Normal saline) Blood Aspirated: No Pain Paresthesia on Injection Noted: No Resistance on Injection: Normal Image Stored and Saved: Yes Events: Uneventful and Well Tolerated
[2022-05-10 13:30] VITALS: BP 136/83; PULSE 70
== END 2022-05-10 13:49 | disposition home or self-care (01) ==
LOC: OR 08:30
PROVIDERS: ATTEND Podiatrist
DX: M20.11 Hallux valgus (acquired), right foot (principal); M79.7 Fibromyalgia; M19.90 Unspecified osteoarthritis, unspecified site; F41.9 Anxiety disorder, unspecified; I10 Essential (primary) hypertension; Z82.49 Family history of ischemic heart disease and other diseases of the circulatory system; Z83.3 Family history of diabetes mellitus; K21.9 Gastro-esophageal reflux disease without esophagitis; G43.909 Migraine, unspecified, not intractable, without status migrainosus; F32.A Depression, unspecified; Z86.73 Personal history of transient ischemic attack (TIA), and cerebral infarction without residual deficits; M48.00 Spinal stenosis, site unspecified; D50.9 Iron deficiency anemia, unspecified; Z85.038 Personal history of other malignant neoplasm of large intestine; Z87.891 Personal history of nicotine dependence; Z79.899 Other long term (current) drug therapy
CPT/HCPCS: 64447; 64445; 76942; 28297; C1713; J2250; J1100; J0690 ×2; J2405; J3010; J2795; J2370; J0330; J2704; J1170; J2001

== ENCOUNTER → 2022-07-01 | Outpatient (CLI) | payer MEDICARE ==
[2022-07-01 19:04] LABS: African American GFR (CKD) 98.9 (60.0-200.0); Anion Gap 10.9 mmol/L (10.00-18.00); BUN/Creat Ratio 22.86 Ratio (12.00-20.00); Calcium 8.7 mg/dL (8.7-10.3); Carbon Dioxide 23.1 mmol/L (20.0-27.5); Non-African American GFR(CKD) 85.4 (60.0-200.0)
== END | disposition home or self-care (01) ==
LOC: LABWHC1 11:31
PROVIDERS: ATTEND Psychiatry & Neurology Neurology
DX: E87.1 Hypo-osmolality and hyponatremia (principal); Z79.899 Other long term (current) drug therapy
CPT/HCPCS: 36415; 80048

== ENCOUNTER 2022-08-23 06:56 | Day surgery (SDC) | payer MEDICARE ==
[2022-08-21 11:02] VITALS: BMI 31.3
[~2022-08-23 06:56] MED LIST changes: +LIDOCAINE 1% (10MG/ML) FOR IV START INTRADERMA PRN; -MIDAZOLAM 2 MG/2 ML VIAL IV PRN; -Pre Op ABX Message 1 EACH MISC MISCELLANE ONE
[2022-08-23 07:30] VITALS: RESP 16
[2022-08-23] MEDS ORDERED: MIDAZOLAM 2 MG/2 ML VIAL IVP ONE (07:55)
[2022-08-23] MEDS ORDERED: fentaNYL (PF) 50 MCG/ML 2 ML AMP IVP ONE (07:57)
[2022-08-23] MEDS ORDERED: LIDOCAINE 2% INJ 20 MG/ML (2 ML VIAL) ONE (08:38)
[2022-08-23] MEDS ORDERED: SODIUM CHLORIDE 0.9% (PF) 10 ML VIAL ONE (08:38)
[2022-08-23] MEDS ORDERED: ROPIVACAINE 5 MG/ML 30 ML VIAL ONE (08:38)
[2022-08-23] MEDS ORDERED: fentaNYL (PF) 50 MCG/ML 2 ML AMP ONE (08:38)
[2022-08-23] MEDS ORDERED: PROPOFOL 10 MG/ML 20 ML VIAL IV ONE (08:38)
[2022-08-23] MEDS ORDERED: MIDAZOLAM 2 MG/2 ML VIAL ONE (08:38)
[2022-08-23] MEDS: HYDROmorphone 0.5 MG/0.5 ML SYRINGE IVP PRN ×3 (10:24→10:46)
[2022-08-23 10:31] VITALS: TEMP 98
--- NOTE | 2022-08-23 10:33 | P.OP ---
Date of Procedure: 08/23/22 Preoperative Diagnosis: Nonunion arthrodesis right first tarsometatarsal joint Postoperative Diagnosis: Same Procedure(s) Performed: First tarsometatarsal joint arthrodesis right foot Implants: Arthrex 15 x 15 mm compression staple Arthrex 18 x 15 mm compression staple Arthrex Arthrocell Anesthesia: SYLWIA Surgeon: Cordell Dykes Estimated Blood Loss (ml): 5 Pathology: none sent Condition: stable Disposition: PACU Description of Procedure: Prior to the patient being brought to the operative room, anesthesia administered nerve block in the right lower extremity. The patient was then taken to the operating room and placed on table supine position. Timeout was taken to confirm correct patient identifiers, correct L Melissa of surgery, and correct procedure. When all staff in the room were in agreement with the timeout, the patient was induced placed under general anesthesia. A well-padded tourniquet was placed on the right ankle and a bump underneath the right hip to internally rotate the right leg. The right leg was then prepped and draped usual manner. The right leg was exsanguinated and the tourniquet inflated to 250 mmHg. Attention was directed over the medial aspect of the midfoot where an linear incision was made centered over the tarsometatarsal joint. Incision was deepened down to the saphenous tissue careful to identify, avoid, and retract any neurovascular structures and cauterize any bleeding vessels. Blunt dissection was then continued down to the deep fascia. The fascia was incised and reflected dorsally and plantarly to expose the first tarsometatarsal joint. There was a plate and 4 screws oriented medially. The screws were engaged removed intact without complication. The plate was removed intact without complication. Then under direct fluoroscopic visualization, an elevator was used to identify the area of the nonunion. Once that was identified a 2.2 mm low-speed bur was inserted into the nonunion site under direct fluoroscopic visualization. The bur was used to resect the nonunion. Fluoroscopy was used to assess amount of resection to make sure that was complete. Once a full resection was complete the same bur was used to fenestrate both bony surfaces to promote bleeding and the area. The wound is then thoroughly irrigated. Effects ArthroSew was then mixed on the back table and then injected between the arthrodesis segments. Then with the arthrodesis site held in compression, a drill guide for a 15 x 15 mm compression staple was placed on the plantar medial aspect of the arthrodesis site. Drill holes were made through the guide down to the proper level of depth. The drill guide was removed and then the staple inserted with the legs opened to the appropriate position. Then the staple was inserted and the upper cutter removed which allowed legs to compress. The impactor was then used to drive the staple flush to the bone. Then the drill guide for a 18 mm x 15 mm compression staple was placed on the dorsomedial aspect of the arthrodesis site. Drill holes were made through the guide down to proper depth. The guide was removed and then the staple was inserted with the legs opened. The staple was inserted into the drill holes and the upper cutter released to allow the legs to compress. The impactor was then used to drive the staple flush to the bone. The area was tested for stability which appeared solid with no movement. Fluoroscopy confirmed proper placement of both jennifer as well as good compression across the arthrodesis site. The wound is then thoroughly irrigated with antibiotic saline. Any defects in the arthrodesis site were filled with AlloMatrix. The deep tissue was closed with 2-0 Vicryl. Wound was again thoroughly irrigated. Subcutaneous closure was done with 4-0 Monocryl and skin closure done with 30 Stratafix in a running subcuticular manner. Dermal glue was applied and allowed to dry. Steri-Strips are placed across incision then covered with an Arthrex jumpstart dressing and then a dry sterile dressing. The tourniquet was released and capillary refill return to all digits on the right foot. The patient was then placed in a well-padded, well molded plaster posterior mold/sugar tong splint. The Foot and ankle were held in neutral position as it dried. Once dried, the anesthesia was reversed and the patient taken recovery with vital signs stable.
[2022-08-23] MEDS ORDERED: HYDROcodone/APAP 5-325MG 1 EACH TAB ONE (11:44)
[2022-08-23] MEDS ORDERED: KETOROLAC 15 MG/ML 1 ML VIAL ONE (11:44)
[2022-08-23] MEDS ORDERED: KETOROLAC 15 MG/ML 1 ML VIAL IVP ONE (11:50)
[2022-08-23] MEDS ORDERED: HYDROcodone/APAP 5-325MG 1 EACH TAB PO ONE (11:50)
[2022-08-23 11:56] VITALS: PULSE 85
[2022-08-23 12:09] VITALS: BP 122/63
--- NOTE | 2022-08-23 13:48 | P.ANPRN ---
Procedure Note - Anesthesia - Nerve Block Performed Right Adductor Canal Time Out Performed: Yes (07:55) Date of Procedure: 08/23/22 Procedure Start Time: :55 Procedure Stop Time: 08:01 Location of Patient: PreOp Indication: Acute Post-Operative Pain, Requested by Surgeon (Dr Dykes) Sedation Type: Sedate with meaningful contact maintained Preparation: Sterile Prep Position: Supine Catheter: None Needle Types: Pajunk Needle Gauge: 21 Ultrasound used to visualize needle placement: Yes Ultrasound used to observe medication spread: Yes Injectate: 0.5% Ropivacaine (see comment for volume) (15cc + 5cc PF Normal saline) Blood Aspirated: No Pain Paresthesia on Injection Noted: No Resistance on Injection: Normal Image Stored and Saved: Yes Events: Uneventful and Well Tolerated
--- NOTE | 2022-08-23 13:50 | P.ANPRN ---
Procedure Note - Anesthesia - Nerve Block Performed Right Popliteal Time Out Performed: Yes Date of Procedure: 08/23/22 Procedure Start Time: : Procedure Stop Time: :08 Location of Patient: PreOp Indication: Acute Post-Operative Pain, Requested by Surgeon (Dr Dykes) Sedation Type: Sedate with meaningful contact maintained Preparation: Sterile Prep Position: Left Lateral Catheter: None Needle Types: Pajunk Needle Gauge: 21 Ultrasound used to visualize needle placement: Yes Ultrasound used to observe medication spread: Yes Injectate: 0.5% Ropivacaine (see comment for volume) (15cc + 5cc PF Normal saline) Blood Aspirated: No Pain Paresthesia on Injection Noted: No Resistance on Injection: Normal Image Stored and Saved: Yes Events: Uneventful and Well Tolerated
== END 2022-08-23 13:10 | disposition home or self-care (01) ==
LOC: OR 06:56
PROVIDERS: ATTEND Podiatrist
DX: M96.0 Pseudarthrosis after fusion or arthrodesis (principal); M79.7 Fibromyalgia; M19.90 Unspecified osteoarthritis, unspecified site; I67.9 Cerebrovascular disease, unspecified; R51.9 Headache, unspecified; F41.9 Anxiety disorder, unspecified; Z87.891 Personal history of nicotine dependence; G25.81 Restless legs syndrome; I10 Essential (primary) hypertension; R26.81 Unsteadiness on feet; Z98.890 Other specified postprocedural states; Z82.49 Family history of ischemic heart disease and other diseases of the circulatory system; Z83.3 Family history of diabetes mellitus; Z79.1 Long term (current) use of non-steroidal anti-inflammatories (NSAID); Z79.891 Long term (current) use of opiate analgesic; Z79.899 Other long term (current) drug therapy
CPT/HCPCS: 64447; 64445; 76942; 28740; C1713; J2250; J1100; J0690; J2405; J3010; J2795; J1885; J2704; J1170; J2001

== ENCOUNTER 2022-08-24 17:28 | Emergency (ER) | payer MEDICARE ==
[2022-08-24 18:10] VITALS: TEMP 98.3
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
--- NOTE | 2022-08-24 19:01 | XR ---
EXAMINATION TYPE: XR chest 2V DATE OF EXAM: 08/24/2022 COMPARISON: 06/02/2019 HISTORY: Difficulty breathing TECHNIQUE: 2 views FINDINGS: Heart is normal. Lungs are clear of infiltrate. No heart failure. There are no hilar masses . There is neural stimulator in the thoracic spine. There are chest leads. IMPRESSION: No active cardiopulmonary disease. Normal heart. No change.
[2022-08-24 19:07] LABS: Basophils % (A) 0 %; Eosinophils # (A) 0.1 k/uL (0-0.7); Eosinophils % (A) 1 %; HCT 30.3 % (34.0-46.0); HGB 10.6 gm/dL (11.4-16.0); Lymphocytes # (A) 1.4 k/uL (1.0-4.8); Lymphocytes % (A) 17 %; MCH 31.7 pg (25.0-35.0); MCHC 34.8 g/dL (31.0-37.0); Mean Platelet Volume 7.6; Monocytes # (A) 0.6 k/uL (0-1.0); Monocytes % (A) 7 %; Neutrophils # (A) 6.2 k/uL (1.3-7.7); Neutrophils % (A) 75 %; Platelet Count 236 k/uL (150-450); RBC 3.33 m/uL (3.80-5.40); RDW 13.5 % (11.5-15.5); WBC 8.3 k/uL (3.8-10.6)
[2022-08-24 19:30] LABS: Albumin 4.3 g/dL (3.5-5.0); Calcium 8.9 mg/dL (8.4-10.2); Magnesium 2.1 mg/dL (1.6-2.3); Potassium 4.4 mmol/L (3.5-5.1); Total Bilirubin 0.3 mg/dL (0.2-1.3); Total Protein 6.8 g/dL (6.3-8.2)
[2022-08-24] MEDS ORDERED: SODIUM CHLORIDE 0.9% 500 ML 500 ML IV ONE (19:32)
[2022-08-24 19:38] LABS: INR 0.9 (<1.2); Partial Thromboplastin Time 25.9 sec (22.0-30.0); Prothrombin Time 9.9 sec (9.0-12.0)
[2022-08-24 20:41] VITALS: BP 119/59; PULSE 75; RESP 18
[2022-08-24] MEDS ORDERED: PRAMIPEXOLE 1 MG TAB PO STA (20:41)
== END 2022-08-24 20:53 | disposition home or self-care (01) ==
LOC: EC 17:28
DX: R06.02 Shortness of breath (principal); K21.9 Gastro-esophageal reflux disease without esophagitis; I10 Essential (primary) hypertension; Z87.891 Personal history of nicotine dependence; Z86.73 Personal history of transient ischemic attack (TIA), and cerebral infarction without residual deficits
CPT/HCPCS: 36415; 71046; 80053; 83735; 84484; 85025; 85379; 85610; 85730; 93005; 99285

== ENCOUNTER → 2022-11-19 | Outpatient (CLI) | payer MEDICARE ==
--- NOTE | 2022-11-19 15:54 | BD ---
EXAMINATION TYPE: Axial Bone Density DATE OF EXAM: 11/19/2022 COMPARISON: Prior DEXA bone scan 2017 CLINICAL HISTORY: 72 years year old Female. ICD-10 CODE: Z91.89 at risk for bone density loss Height: 65 Weight: 203 FRAX RISK QUESTIONS: Alcohol (3 or more units per day): NO Family History (Parent hip fracture): NO Glucocorticoids (More than 3mos): NO History of Fracture in Adulthood: PELVIS, RT FOOT, Secondary Osteoporosis: 1. Type 1 Diabetes: NO 2. Hyperthyroidism: NO 3. Menopause before 45: NO 4. Malnutrition: NO 5. Chronic liver disease: NO Rheumatoid Arthritis: NO Current Tobacco Use: NO RISK FACTORS HISTORY OF: Hip Fracture (Right/Left): NO Spine Fracture: NO History of Wrist Fracture: LT WRIST Surgery to Spine/Hip(right/left)/Wrist (right/left): LT HIP REPLACEMENT AGE 64, 2 LUMBAR FUSIONS 1995 Family History of Osteoporosis: NO Active: NO Diet low in dairy products/other sources of calcium: YES Postmenopausal woman: YES Take estrogen and/or progesterone medications: NO Lost more than 2 inches in height since high school: NO Frequent falls: YES Poor Health: NO Hyperparathyroidism: NO Adrenal Insufficiency: NO MEDICATIONS: Prednisone or other steroids: NO Thyroid Medications: NO Osteoporosis Medications: NO Additional Medications: CELEBREX, OMEPRAZOLE, AMLODIPINE, LISINOPRIL EXAM MEASUREMENTS: Bone mineral density about the R hip (g/cm2): 0.842 T Score values are as follows: -----R Neck: -1.4 -----R Total: -1.8 Bone mineral density has: INCREASED 8.6 % since study of: 03/16/2018 Bone mineral density about the R Wrist (g/cm2): 0.448 T Score values are as follows: -----Dist. R+U: -2.3 -----Prox. R+U: -3.1 -----Radius total: -3.7 BASELINE STUDY FOR WRIST. PT IS RT HANDED DOMINATE BUT FX LT WRIST A CHILD. FRAX%s: The graph provided illustrates a chance for a major osteoporotic fx and a chance for the hips probability for fx in 10 years time. NO FRAX'S GIVEN BECAUSE ONLY ONE HIP WAS MEASURED. IMPRESSION: Osteoporosis (T Score less than -2.5). There is increased fracture risk and therapy is usually indicated based on age. Re-Screen 1-2 years. NOTE: T-SCORE=SD OF THE YOUNG ADULT MEAN.
== END | disposition home or self-care (01) ==
LOC: RADBDWWP 14:53
PROVIDERS: ATTEND Family Medicine
DX: M81.0 Age-related osteoporosis without current pathological fracture (principal); Z79.52 Long term (current) use of systemic steroids; Z91.89 Other specified personal risk factors, not elsewhere classified
CPT/HCPCS: 77080

== ENCOUNTER → 2023-02-20 | Day surgery (SDC) | payer MEDICARE ==
[~2023-02-20] MED LIST changes: -DEXAMETHASONE SOD PHOSPHATE 4 MG/ML 1 ML VIAL IV ONE; -LACTATED RINGERS 1,000 ML IV SCH; -LIDOCAINE 1% (10MG/ML) FOR IV START INTRADERMA PRN; -ONDANSETRON 4 MG/2 ML VIAL IVP ONE; +PROPOFOL 10 MG/ML 20 ML VIAL IV ONE; +fentaNYL (PF) 50 MCG/ML 2 ML AMP ONE
[2023-02-20 10:46] VITALS: TEMP 97.1
[2023-02-20] MEDS: LACTATED RINGERS 1,000 ML IV SCH ×2 (10:53→10:54)
[2023-02-20 10:54] LABS: Glucose,Whole Blood 84 mg/dL (70-110)
--- NOTE | 2023-02-20 11:26 | P.OP ---
Date of Procedure: 02/20/23 Preoperative Diagnosis: Colitis Postoperative Diagnosis: Severe diverticulosis Procedure(s) Performed: Colonoscopy Anesthesia: MAC Surgeon: Tyrel Crews Pathology: none sent Condition: stable Disposition: PACU Description of Procedure: The patient's placed on the endoscopy table in the lateral position. She received IV sedation. Digital rectal exam performed. This revealed no abnormalities. Flexible colonoscope was then placed patient anus and passed with colon. Scope couldn't pass beyond the left colon secondary to tortuosity sigmoid colon. There is extensive diverticular changes. Scope withdrawn. There is extensive diverticular changes in the sigmoid colon. Scope summer back the rectum this appeared normal. Scope withdrawn for patient. Patient scheduled for a barium enema.
[2023-02-20 11:50] VITALS: BP 111/69; PULSE 70; RESP 20
--- NOTE | 2023-02-20 15:22 | XR ---
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 Spinal stimulator leads extend to the lower thoraci c spinal canal. Multiple surgical clips in the upper abdomen. Gas in colon. Previous lower lumbar roper inectomy. Surgical clip left side of the pelvis. Previous internal fixation left acetabulum and previ ous left total hip arthroplasty. No dilated small bowel seen. Impression: Excessive gaseous distention of the colon. Colonoscopy rescheduled.
== END | disposition home or self-care (01) ==
LOC: ORWHC2ENDO 10:14
PROVIDERS: ATTEND Surgery
DX: K52.9 Noninfective gastroenteritis and colitis, unspecified (principal); K57.30 Diverticulosis of large intestine without perforation or abscess without bleeding; I10 Essential (primary) hypertension; K21.9 Gastro-esophageal reflux disease without esophagitis; Z79.899 Other long term (current) drug therapy
CPT/HCPCS: 74018; 45378; J3010; J2704

== ENCOUNTER → 2023-02-21 | Outpatient (CLI) | payer MEDICARE ==
--- NOTE | 2023-02-21 10:34 | FL ---
EXAMINATION TYPE: FL barium enema DATE OF EXAM: 02/21/2023 COMPARISON: Prior CT abdomen and pelvis November 08, 2021 HISTORY: Incomplete colonoscopy yesterday. TECHNIQUE: A double contrast barium enema study is performed. A total of 4.02 minute of fluoroscopi c time was utilized during procedure and 23 images obtained. FINDINGS: Hostess Party Sales Representative view of the abdomen shows persistent gaseous prominent colonic loops. Postsurgical c hange to the lumbar spine is present. Postsurgical change to the left hip is again seen. There is tho racic stimulator device noted. Cholecystectomy clips are redemonstrated. The exam was performed. Contrast was successfully filled to the cecum. There is redundancy of the sig moid colon making evaluation at this level is suboptimal particularly for polyps. Sigmoid colonic div erticulosis is seen. A few additional diverticula in the left colon. No obstructing or constricting n eoplasm. Appendix and terminal ileum are not refluxed. IMPRESSION: Successful filling to the cecum. No obstructing or constricting neoplasm.
== END | disposition home or self-care (01) ==
LOC: RADFLMAIN 08:24
PROVIDERS: ATTEND Surgery
DX: K57.30 Diverticulosis of large intestine without perforation or abscess without bleeding (principal)
CPT/HCPCS: 74270

== ENCOUNTER 2023-04-04 05:37 | Day surgery (SDC) | payer MEDICARE ==
[2023-04-01 11:29] VITALS: BMI 32.4
[2023-04-04] MEDS ORDERED: MIDAZOLAM 2 MG/2 ML VIAL IV PRN (05:44)
[2023-04-04] MEDS ORDERED: ONDANSETRON 4 MG/2 ML VIAL IVP ONE ×2 (05:44→08:29)
[2023-04-04] MEDS ORDERED: DEXAMETHASONE SOD PHOSPHATE 4 MG/ML 1 ML VIAL IV ONE (05:44)
[2023-04-04] MEDS ORDERED: LACTATED RINGERS 1,000 ML IV SCH (05:44)
[2023-04-04 06:08] VITALS: TEMP 97.2
[2023-04-04] MEDS ORDERED: MIDAZOLAM 2 MG/2 ML VIAL IVP ONE (06:45)
[2023-04-04] MEDS ORDERED: fentaNYL (PF) 50 MCG/ML 2 ML AMP IVP ONE (06:45)
[2023-04-04] MEDS ORDERED: LIDOCAINE 2% INJ 20 MG/ML (2 ML VIAL) ONE (06:55)
[2023-04-04] MEDS ORDERED: PROPOFOL 10 MG/ML 20 ML VIAL IV ONE (06:55)
[2023-04-04] MEDS ORDERED: fentaNYL (PF) 50 MCG/ML 2 ML AMP ONE (06:55)
[2023-04-04] MEDS ORDERED: ROPIVACAINE 5 MG/ML 30 ML VIAL ONE (06:55)
[2023-04-04] MEDS ORDERED: PHENYLEPHRINE-0.9% NACL SYG 1,000 MCG/10 ML SYRINGE ONE (06:55)
[2023-04-04] MEDS ORDERED: SUCCINYLCHOLINE CHLORIDE 200 MG/10 ML VIAL IV ONE (06:55)
[2023-04-04] MEDS ORDERED: SODIUM CHLORIDE 0.9% (PF) 10 ML VIAL ONE (06:55)
[2023-04-04] MEDS ORDERED: ceFAZolin 1,000 MG in SODIUM CHLORIDE 0.9% 1,000 ML IRRIGATION ONE (06:59)
[2023-04-04 07:01] LABS: Albumin 4.7 g/dL (3.5-5.0); Calcium 8.9 mg/dL (8.4-10.2); Total Protein 7.9 g/dL (6.3-8.2)
[2023-04-04 07:30] LABS: Potassium 5.2 mmol/L (3.5-5.1)
[2023-04-04] MEDS: HYDROmorphone 0.5 MG/0.5 ML SYRINGE IVP PRN ×2 (08:19→08:27)
--- NOTE | 2023-04-04 08:29 | P.OP ---
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 The patient was brought into the operating room and placed on table supine position. Timeout was taken to confirm correct patient identifiers, correct lateral malleolus surgery, and correct procedure. Once all staff in the room were in agreement with the timeout, the patient was induced and placed under general anesthesia. A tourniquet was placed on the right ankle and a bump underneath the right hip to internally rotate the right leg. The right foot was then prepped and draped in the usual manner. The right foot was exsanguinated and the tourniquet inflated to 250 mmHg. Attention was directed over the medial aspect of the midfoot, where an incision was made over previous scar. The incision was deepened down to the subcutaneous tissue careful to identify, avoid, and retract any neurovascular structures and cauterize any bleeding vessels. Dissection was then continued down to the periosteum overlying the first tarsometatarsal joint. The tissue was incised and reflected dorsally and plantarly to expose the joint. From a previous surgery, there were [address] that were freed and loosened. [place] were able to be removed intact without complication. The nonunion site was identified with an osteotome. Utilizing a Tejeda combination of osteotomes, curettes, and Antonio, the interposing tissue was fully removed down to bleeding medullary bone. A 2 mm drill bit was used to fenestrate both surfaces. The wound was irrigated with antibiotic saline. A Jeanie Lapidus template was then positioned medially over the arthrodesis site. Alignment was adjusted under direct fluoroscopic visualization, and once appropriate, temporary fixation was used to hold the plate in place. Then a guidewire was placed in the drill guide at the compression slot. The template was removed and then the reamer used to create the slot for the compression portion of the plate. The actual plate was then positioned into the slot and temporarily fixated. Fluoroscopy was used to confirm the final placement of the plate. One distal locking and one distal nonlocking screw were placed through the plate into the first metatarsal. Augment was then injected between the arthrodesis segments. A drill guide was placed in the compression slot and the drill advanced proximally and laterally across the arthrodesis site into the intermediate cuneiform. Fluoroscopy confirmed the proper placement and trajectory of the bit. The knee partially threaded screw was inserted and advanced until the head of the screw engaged the plate and provided compression across the arthrodesis site. Compression was confirmed both on fluoroscopy and the fact that augment extruded from the site. The proximal screws were then placed in the plate. The dorsal screw was a nonlocking screw in the trajectory was between the medial and intermediate cuneiforms. The second screw was a locking screw with the same trajectory as the first. Final fluoroscopic imaging showed stable construct of the plate and screws. Compression was also noted at the arthrodesis site. Deep closure was then done with 2-0 Vicryl. The wound is then irrigated with antibiotic saline. Subcu closure was done with 4-0 Monocryl. And skin closure was done with 4-0 Stratafix in a running subcuticular manner. Dermal glue was applied over the skin and allowed to dry. Steri-Strips are placed over the incision as well as an Arthrex jumpstart dressing. A dry sterile dressings applied to the right foot. The tourniquet was released and capillary refill return to all digits on the right foot. The patient was then placed a well-padded, well molded plaster posterior mold/sugar tong splint. The ankle was held in neutral position until the splint was dried. Anesthesia was reversed and the patient was taken recovery with vital signs stable
[2023-04-04 08:30] VITALS: RESP 16
[2023-04-04 09:29] VITALS: BP 115/74; PULSE 68
--- NOTE | 2023-04-04 10:23 | P.ANPRN ---
Procedure Note - Anesthesia - Nerve Block Performed Right Popliteal Single Time Out Performed: Yes ([id number]) Date of Procedure: 04/04/23 Procedure Start Time: 06:45 Procedure Stop Time: 06:49 Location of Patient: PreOp Indication: Acute Post-Operative Pain, Requested by Surgeon Specifically requested for management of pain by DrJamison: Cordell Dykes Sedation Type: Sedate with meaningful contact maintained Preparation: Sterile Prep Position: Supine Catheter: None Needle Types: Pajunk Needle Gauge: 21 Ultrasound used to visualize needle placement: Yes Ultrasound used to observe medication spread: Yes Injectate: 0.5% Ropivacaine (see comment for volume) (15cc+ 10cc nacl pf) Blood Aspirated: No Pain Paresthesia on Injection Noted: No Resistance on Injection: Normal Image Stored and Saved: Yes Events: Uneventful and Well Tolerated
--- NOTE | 2023-04-04 10:24 | P.ANPRN ---
Procedure Note - Anesthesia - Nerve Block Performed Right Adductor Canal Single Time Out Performed: Yes (0644) Date of Procedure: 04/04/23 Procedure Start Time: 06:50 Procedure Stop Time: 06:55 Location of Patient: PreOp Indication: Acute Post-Operative Pain, Requested by Surgeon Specifically requested for management of pain by DrJamison: Cordell Dykes Sedation Type: Sedate with meaningful contact maintained Preparation: Sterile Prep Position: Supine Catheter: None Needle Types: Pajunk Needle Gauge: 21 Ultrasound used to visualize needle placement: Yes Ultrasound used to observe medication spread: Yes Injectate: 0.5% Ropivacaine (see comment for volume) (15cc + 10cc nacl pf) Blood Aspirated: No Pain Paresthesia on Injection Noted: No Resistance on Injection: Normal Image Stored and Saved: Yes Events: Uneventful and Well Tolerated
== END 2023-04-04 10:16 | disposition home or self-care (01) ==
LOC: OR 05:37
PROVIDERS: ATTEND Podiatrist
DX: M96.0 Pseudarthrosis after fusion or arthrodesis (principal); G89.18 Other acute postprocedural pain; I10 Essential (primary) hypertension; Z86.73 Personal history of transient ischemic attack (TIA), and cerebral infarction without residual deficits; G43.909 Migraine, unspecified, not intractable, without status migrainosus; M79.7 Fibromyalgia; K21.9 Gastro-esophageal reflux disease without esophagitis; Z79.899 Other long term (current) drug therapy
CPT/HCPCS: 28740; 64447; 64445; 80053; C1713 ×2; J2250; J0330; J1100; J0690 ×2; J2405; J3010; J2795; J2370; J2704; J1170; J2001

== ENCOUNTER 2023-07-30 09:50 | Observation (INO) | payer MEDICARE ==
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
[2023-07-30 10:57] LABS: Basophils % (A) 0 %; Eosinophils # (A) 0.2 k/uL (0-0.7); Eosinophils % (A) 3 %; HCT 38.9 % (34.0-46.0); HGB 13.8 gm/dL (11.4-16.0); Lymphocytes # (A) 1.1 k/uL (1.0-4.8); Lymphocytes % (A) 20 %; MCH 31.8 pg (25.0-35.0); MCHC 35.4 g/dL (31.0-37.0); MCV 89.8 fL (80.0-100.0); Mean Platelet Volume 7.5; Monocytes # (A) 0.4 k/uL (0-1.0); Monocytes % (A) 7 %; Neutrophils # (A) 3.7 k/uL (1.3-7.7); Neutrophils % (A) 68 %; Platelet Count 337 k/uL (150-450); RBC 4.34 m/uL (3.80-5.40); RDW 13.2 % (11.5-15.5); WBC 5.4 k/uL (3.8-10.6)
[2023-07-30 11:20] LABS: INR 0.9 (<1.2); Partial Thromboplastin Time 26.8 sec (22.0-30.0); Prothrombin Time 9.9 sec (9.0-12.0)
--- NOTE | 2023-07-30 11:24 | CT ---
EXAMINATION TYPE: CT brain wo con DATE OF EXAM: 07/30/2023 COMPARISON: 11/11/2021 HISTORY: Neuro deficit, acute stroke suspected CT DLP: 1159.4 mGycm Automated exposure control for dose reduction was used. FINDINGS: Intracranial atherosclerotic changes. Orbits are symmetric. Nasal septal deviation. Craniocervical ju nction maintained. Sella turcica has a normal appearance. Generalized degenerative change with low attenuation in the white matter most typical remote white ma tter ischemia. No acute hemorrhage, mass effect or midline shift. IMPRESSION: NO ACUTE HEMORRHAGE OR MASS EFFECT. THERE IS DEGENERATIVE AND NONSPECIFIC LOW-ATTENUATION WHITE MATTE R MOST LIKELY IN THE BASIS OF MICROVASCULAR ISCHEMIC WHITE MATTER CHANGE. IF STRONG CLINICAL CONCERN FOR ACUTE ISCHEMIA CONSIDER FOLLOW-UP MRI.
[2023-07-30 11:25] LABS: ALT 24 U/L (4-34); AST 34 U/L (14-36); African American GFR (CKD) 71 (>60 ml/min/1.73 sqM); Alkaline Phosphatase 69 U/L (38-126); Anion Gap 8 mmol/L; Blood Urea Nitrogen 29 mg/dL (7-17); Calcium 9.8 mg/dL (8.4-10.2); Carbon Dioxide 24 mmol/L (22-30); Chloride 93 mmol/L (98-107); Creatine Kinase 129 U/L (30-135); Glucose 97 mg/dL (74-99); Non-African American GFR(CKD) 61 (>60 ml/min/1.73 sqM); Sodium 125 mmol/L (137-145); Total Bilirubin 0.7 mg/dL (0.2-1.3); Total Protein 8.2 g/dL (6.3-8.2)
--- NOTE | 2023-07-30 11:50 | XR ---
EXAMINATION TYPE: XR chest 2V DATE OF EXAM: 07/30/2023 COMPARISON: 08/24/2022 INDICATION: Weakness TECHNIQUE: Frontal and lateral views of the chest are obtained. FINDINGS: The heart size is normal. The pulmonary vasculature is normal. The lungs are clear. Stimulator leads are within the mid thoracic region. IMPRESSION: 1. No acute pulmonary process.
[2023-07-30 13:31] LABS: T4, Free (Free Thyroxine) 1.16 ng/dL (0.78-2.19)
[2023-07-30 15:55] LABS: Appearance,Urine Clear (Clear); Bilirubin,Urine Negative (Negative); Blood,Urine Negative (Negative); Color,Urine Light Yellow; Glucose,Urine (UA) Negative (Negative); Ketones,Urine Negative (Negative); Leukocyte Esterase,Urine Small (Negative); Mucus,Urine Rare /hpf; Nitrite,Urine Negative (Negative); PH, Urine 5.5 (5.0-8.0); Protein,Urine Negative (Negative); RBC,Urine 1 /hpf (0-5); Specific Gravity,Urine 1.019 (1.001-1.035); Urobilinogen,Urine <2.0 mg/dL (<2.0); WBC,Urine 2 /hpf (0-5)
[2023-07-30] MEDS ORDERED: NALOXONE 0.4 MG/ML 1 ML VIAL IV PRN (16:38)
[2023-07-30] MEDS ORDERED: ONDANSETRON 4 MG/2 ML VIAL IVP PRN (16:45)
[2023-07-30] MEDS ORDERED: ASPIRIN 325 MG TAB PO STA (16:45)
[2023-07-30] MEDS: SODIUM CHLORIDE 0.9% 1,000 ML IV SCH (17:28)
[2023-07-30] MEDS: MORPHINE SULFATE 4 MG/ML SYRINGE IV PRN (22:02)
[2023-07-31] MEDS: MORPHINE SULFATE 4 MG/ML SYRINGE IV PRN (01:59)
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
[2023-07-31 08:43] LABS: Basophils % (A) 0 %; Eosinophils # (A) 0.2 k/uL (0-0.7); Eosinophils % (A) 3 %; HCT 37.6 % (34.0-46.0); HGB 12.8 gm/dL (11.4-16.0); Lymphocytes # (A) 1.4 k/uL (1.0-4.8); Lymphocytes % (A) 27 %; MCHC 34.1 g/dL (31.0-37.0); MCV 90.9 fL (80.0-100.0); Mean Platelet Volume 7.1; Monocytes # (A) 0.4 k/uL (0-1.0); Monocytes % (A) 7 %; Neutrophils # (A) 3.3 k/uL (1.3-7.7); Neutrophils % (A) 61 %; Platelet Count 328 k/uL (150-450); RBC 4.13 m/uL (3.80-5.40); RDW 12.9 % (11.5-15.5); WBC 5.4 k/uL (3.8-10.6)
[2023-07-31 08:56] LABS: ALT 22 U/L (4-34); AST 30 U/L (14-36); African American GFR (CKD) 83 (>60 ml/min/1.73 sqM); Albumin 4.1 g/dL (3.5-5.0); Alkaline Phosphatase 65 U/L (38-126); Anion Gap 9 mmol/L; Blood Urea Nitrogen 18 mg/dL (7-17); Carbon Dioxide 25 mmol/L (22-30); Chloride 93 mmol/L (98-107); Glucose 84 mg/dL (74-99); Magnesium 1.9 mg/dL (1.6-2.3); Non-African American GFR(CKD) 72 (>60 ml/min/1.73 sqM); Phosphorus 4.5 mg/dL (2.5-4.5); Potassium 4.3 mmol/L (3.5-5.1); Sodium 127 mmol/L (137-145); Total Bilirubin 0.6 mg/dL (0.2-1.3)
[2023-07-31] MEDS ORDERED: ASPIRIN 325 MG TAB PO SCH (09:00)
[2023-07-31] MEDS ORDERED: PANTOPRAZOLE 40 MG/10 ML VIAL IV SCH (09:00)
[2023-07-31] MEDS: HEPARIN SODIUM,PORCINE 5,000 UNIT/ML 1 ML VIAL SQ SCH ×2 (10:08→16:28)
[2023-07-31] MEDS: SODIUM CHLORIDE 0.9% 1,000 ML IV SCH (10:08)
[2023-07-31] MEDS: ATORVASTATIN 40 MG TAB PO SCH (10:08)
--- NOTE | 2023-07-31 11:22 | US ---
EXAMINATION TYPE: US carotid duplex BILAT DATE OF EXAM: 07/31/2023 COMPARISON: [facility]ta 01/04/2022 CLINICAL INDICATION: Female, 73 years old with history of TIA; Prior smoker, hypertension, TIA. TECHNIQUE: Carotid duplex ultrasound examination. Indirect Doppler criteria was utilized. FINDINGS: EXAM MEASUREMENTS: RIGHT: Peak Systolic Velocity (PSV) cm/sec ----- Right CCA: 81.2 ----- Right ICA: 137.6 ----- Right ECA: 82.3 ICA/CCA ratio: 1.7 RIGHT: End Diastole cm/sec ----- Right CCA: 21.9 ----- Right ICA: 27.6 ----- Right ECA: 0.0 LEFT: Peak Systolic Velocity (PSV) cm/sec ----- Left CCA: 60.0 ----- Left ICA: 93.0 ----- Left ECA: 87.8 ICA/CCA ratio: 1.5 LEFT: End Diastole cm/sec ----- Left CCA: 14.9 ----- Left ICA: 25.9 ----- Left ECA: 6.5 VERTEBRALS (direction of flow): Right Vertebral: Antegrade Left Vertebral: Antegrade Rhythm: Normal [employer] NOTES: Elevated velocities within right ICA. Right ICA appears tortuous. IMPRESSION: 50-69% stenosis of the right carotid bifurcation Less than 50% stenosis of the left carotid bifurcation. Criteria for Assigning % of Stenosis / Diameter reduction (Estimation based on the indirect measurements of the internal carotid artery velocities (ICA PSV). 1. Normal (no stenosis)=ICA PSV < 125 cm/s: ratio < 2.0: ICA EDV<40 cm/s. 2. Less than 50% stenosis=ICA PSV < 125 cm/s: ratio < 2.0: ICA EDV<40 cm/s. 3. 50 to 69% stenosis=ICA PSV of 125 to 230 cm/s: ration 2.0 ? 4.0: ICA EDV 40-100 cm/s. 4. Greater than 70% stenosis to near occlusion= ICA PSV > 230 cm/s: ratio > 4.0: ICA EDV > 100 cm/s. 5. Near occlusion= ICA PSV velocities may be low or undetectable: variable ratio and ICA EDV. 6. Total occlusion=unable to detect flow.
[2023-07-31] MEDS: ACETAMINOPHEN TAB 325 MG TAB PO PRN (11:41)
--- NOTE | 2023-07-31 13:11 | CA ---
Transthoracic Echo Report Name: Cheri Basilio Age: 73 Gender: F : 1950 Exam Date: 07/31/2023 09:05 Exam Location: [place] [facility] Ht (in): 67 Wt (lb): 195 Ordering Physician: Leo Silverman MD Attending/Referring Phys: Manager Compliance Echo Lau [facility] Procedure CPT: Indications: tia Cardiac Hx: Technical Quality: Fair Contrast 1: Total Dose (mL): Contrast 2: Total Dose (mL): MEASUREMENTS (Male / Female) Normal Values 2D ECHO LV Diastolic Diameter PLAX 4.2 cm 4.2 - 5.9 / 3.9 - 5.3 cm LV Systolic Diameter PLAX 2.8 cm IVS Diastolic Thickness 0.9 cm 0.6 - 1.0 / 0.6 - 0.9 cm LVPW Diastolic Thickness 0.8 cm 0.6 - 1.0 / 0.6 - 0.9 cm LV Relative Wall Thickness 0.4 LVOT Diameter 2.0 cm Ascending Aorta Diameter 3.3 cm M-MODE Aortic Root Diameter MM 3.3 cm LA Systolic Diameter MM 4.1 cm LA Ao Ratio MM 1.2 AV Cusp Separation MM 2.1 cm DOPPLER AV Peak Velocity 119.0 cm/s AV Peak Gradient 5.7 mmHg AV Mean Velocity 85.4 cm/s AV Mean Gradient 3.1 mmHg AV Velocity Time Integral 25.1 cm AI Peak Velocity 302.9 cm/s AI Peak Gradient 36.7 mmHg AI Pressure Half Time 654.2 ms LVOT Peak Velocity 110.5 cm/s LVOT Peak Gradient 4.9 mmHg LVOT Velocity Time Integral 24.1 cm LVOT Stroke Volume 76.1 cm??? LVOT Stroke Volume Index 38.0 ml/m??? LVOT Cardiac Index 2570.2 cm???/min???m??? AV Area Cont Eq vti 3.0 cm??? AV Area Cont Eq pk 2.9 cm??? Mitral E Point Velocity 75.2 cm/s Mitral A Point Velocity 79.4 cm/s Mitral E to A Ratio 0.9 MV Deceleration Time 233.6 ms LV E' Lateral Velocity 8.9 cm/s Mitral E to LV E' Lateral Ratio 8.4 LV E' Septal Velocity 6.1 cm/s Mitral E to LV E' Septal Ratio 12.3 TR Peak Velocity 219.2 cm/s TR Peak Gradient 19.2 mmHg Right Atrial Pressure 15.0 mmHg Pulmonary Artery Systolic Pressu 34.2 mmHg Right Ventricular Systolic Press 34.2 mmHg FINDINGS Left Ventricle Normal Left ventricular size, wall thickness, systolic function with no obvious regional wall motion abnormalities. Left ventricular ejection fraction is estimated at 55-60%. Right Ventricle Normal right ventricular size. Right Atrium Normal right atrial size. Left Atrium Normal left atrial size. Mitral Valve Structurally normal mitral valve. Mitral valve thickened.mild mitral regurgitation. Aortic Valve Trileaflet aortic valve. Mild aortic regurgitation.aortic valve sclerosis. Tricuspid Valve Structurally normal tricuspid valve. Mild tricuspid regurgitation. Pulmonic Valve Structurally normal pulmonic valve. Mild pulmonic regurgitation. Pericardium Minimal pericardial effusion (normal variant). Aorta Normal size aortic root and proximal ascending aorta. CONCLUSIONS 1. Normal left ventricle size and systolic function 2. Mild mitral, aortic and tricuspid regurgitation 3. No evidence of shunting with contrast bubble study Previewed by: Dr. Antonio Merritt MD (Electronically Signed) Final Date: 31 July 2023 13:10
[2023-07-31] MEDS ORDERED: buPROPion SR 100 MG TABLET.ER PO SCH (14:30)
[2023-07-31] MEDS ORDERED: FLUoxetine HCL 20 MG CAP PO SCH (14:30)
--- NOTE | 2023-07-31 14:33 | P.PN ---
Subjective Progress Note Date: 07/31/23 Hospital Course: 73-year-old female with history of hemorrhagic stroke 20 years ago, hy pertension, back stimulator presenting with sudden vision loss. She claims that she has chronic left lower extremity weakness, but has been noticing persistent bilateral leg weakness over the last couple of weeks. Prior to coming to the hospital, she had acute right vision loss for about 15 minutes, now back to normal. She is also been complaining of new frontal headaches as well as poor sleep. Vital signs within normal limits. Laboratory workup shows slight hyponatremia at 125, BUN 29, creatinine 0.92. CT head did not show any acute process. Neurology consulted. Subjective: Patient seen and examined at bedside. No acute events overnight. No other episodes of vision loss. Pertinent positives and negatives as discussed above, a complete review of systems was performed and all other systems are negative. Vitals Signs Reviewed. General: nontoxic, no distress, appears at stated age Derm: warm, dry Head: atraumatic, normocephalic, symmetric Eyes: EOMI, no lid lag, anicteric sclera Mouth: no lip lesion, mucus membranes moist Cardiovascular: S1S2 reg, no murmur Lungs: CTA bilateral, no rhonchi, no rales , no accessory muscle use Abdominal: soft, nontender to palpation, no guarding, no appreciable organomegaly Ext: no gross muscle atrophy, no edema, no contractures Neuro: CN II-XI grossly intact, no focal neuro deficits Psych: Alert, oriented, appropriate affect Data Reviewed Today: Pertinent Labs: Sodium 127, BUN 18, creatinine 0.81, TSH 1.76 Imaging: Carotid Doppler shows 50-69% stenosis of right carotid bifurcation, less than 50% stenosis of the left carotid bifurcation. Assessment and Plan: Sudden onset right-sided visual loss Amaurosis fugax Bilateral carotid atherosclerotic disease Frontal headaches Lower extremity weakness Hyponatremia, hypovolemic Hypertension Fibromyalgia Urinary retention -CT head did not show any acute process -Patient unable to get MRI due to back stimulator -On aspirin and statin -ESR ordered -Neurology consulted -Echocardiogram does not show any PFO -Sodium improving with IV fluids, continue -Currently attempting to avoid, if still retaining, will need Hull catheter -PT ordered DVT ppx: Subcu heparin Code status: Full code Anticipated discharge place: Pending clinical course Anticipated discharge time: Pending clinical course Objective - Vital Signs Vital signs: Vital Signs Temp 98.0 F 07/31/23 10:18 Pulse 66 07/31/23 11:42 Resp 16 07/31/23 11:42 BP 124/73 07/31/23 11:42 Pulse Ox 98 07/31/23 11:42 FiO2 Intake & Output 07/30/23 07/31/23 07/31/23 18:59 06:59 18:59 Intake Total 480 Output Total 1300 550 Balance -1300 -70 Weight 88.451 kg Intake: Oral 480 Output: Urine 1300 550 Other: Voiding Method External Catheter # Voids 1 - Labs CBC & Chem 7: 07/31/23 07:32 07/31/23 07:32 Labs: Abnormal Lab Results - Last 24 Hours (Table) 07/30/23 07/31/23 Range/Units 15:30 07:32 Sodium 127 L (137-145) mmol/L Chloride 93 L (98-107) mmol/L BUN 18 H (7-17) mg/dL Ur Leukocyte Esterase Small H (Negative) Urine Mucus Rare H (None) /hpf
[2023-07-31 15:03] LABS: Chol/HDL Ratio 2.75 Ratio; LDL Cholesterol,Calculated 72.9 mg/dL (0.0-131.0)
[2023-07-31] MEDS: HYDROcodone/APAP 5-325MG 1 EACH TAB PO PRN (16:28)
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
[2023-07-31] MEDS: PANTOPRAZOLE 40 MG TABLET PO SCH (20:41)
[2023-07-31] MEDS: amLODIPine 2.5 MG TAB PO SCH (20:41)
[2023-07-31] MEDS: BACLOFEN 10 MG TAB PO SCH (20:41)
[2023-07-31] MEDS: lisinopriL 10 MG TAB PO SCH (20:41)
[2023-07-31] MEDS: GABAPENTIN 300 MG CAP PO SCH (20:41)
[2023-07-31] MEDS ORDERED: diphenhydrAMINE 25 MG CAP PO STA (21:11)
[2023-08-01] MEDS: HEPARIN SODIUM,PORCINE 5,000 UNIT/ML 1 ML VIAL SQ SCH ×4 (01:39→23:02)
[2023-08-01] MEDS: SODIUM CHLORIDE 0.9% 1,000 ML IV SCH ×3 (01:40→20:07)
[2023-08-01] MEDS: ASPIRIN 81 MG PO SCH (07:53)
[2023-08-01] MEDS: GABAPENTIN 300 MG CAP PO SCH ×2 (07:53→20:06)
[2023-08-01] MEDS: ATORVASTATIN 40 MG TAB PO SCH (07:54)
[2023-08-01 07:59] LABS: African American GFR (CKD) 87 (>60 ml/min/1.73 sqM); Anion Gap 7 mmol/L; Blood Urea Nitrogen 17 mg/dL (7-17); Calcium 8.6 mg/dL (8.4-10.2); Carbon Dioxide 20 mmol/L (22-30); Chloride 100 mmol/L (98-107); Glucose 85 mg/dL (74-99); Non-African American GFR(CKD) 76 (>60 ml/min/1.73 sqM); Potassium 4.5 mmol/L (3.5-5.1); Sodium 127 mmol/L (137-145)
--- NOTE | 2023-08-01 11:25 | CT ---
EXAMINATION TYPE: CT angio head neck DATE OF EXAM: 08/01/2023 COMPARISON: Carotid ultrasound 07/31/2023 and previous angiography 01/04/2022 HISTORY: 73-year-old female Right visual loss with headache TECHNIQUE: Contiguous axial scanning of the head and neck performed with IV Contrast, patient injecte d with 65 ml mL of Isovue 370. Coronal/sagittal reconstructions performed. 3-D reconstructions genera mady on a dedicated independent workstation. CT DLP: 446.1 mGycm Automated exposure control for dose reduction was used. FINDINGS: Neck: Conventional arch was a branching anatomy. Codominant vertebral arteries which remain patent throughout the course. Short retropharyngeal course of the proximal common carotid arteries. Retropharyngeal course mid to lower left ICA. Otherwise, the bilateral common and internal carotid arteries are widely patent. Head: The vertebral and basilar arteries as well as the remainder of the first tear circulation are patent. There is a large, patent left posterior communicating artery. The bilateral internal carotid arteries as well as the remainder of the posterior circulation is billings nt. Dural venous sinuses are patent. There is no aneurysmal change is seen. IMPRESSION: 1. NECK: WIDELY PATENT CAROTID AND VERTEBRAL ARTERIES OF THE NECK. ELEVATED VELOCITIES ON THE PATIENT 'S CAROTID ULTRASOUND LIKELY RELATES TO TURBULENT FLOW FROM VESSEL TORTUOSITY. 2. HEAD: NO LARGE VESSEL INTRACRANIAL ARTERIAL OCCLUSION, SIGNIFICANT STENOSIS, OR ANEURYSMAL CHANGES SEEN.
[2023-08-01] MEDS: CYANOCOBALAMIN 1,000 MCG/ML 1 ML VIAL IM SCH (11:27)
--- NOTE | 2023-08-01 11:50 | CT ---
EXAMINATION TYPE: CT CervThorLumbar spine wo con DATE OF EXAM: 08/01/2023 COMPARISON: 11/11/2021 HISTORY: 73-year-old female Neck and back pain with recurrent falls TECHNIQUE: Contiguous axial scanning of the cervical, thoracic, and lumbar spine without IV contrast. Coronal and sagittal reconstructions performed. CT DLP: 1797.6 mGycm Automated exposure control for dose reduction was used. FINDINGS: Cervical spine: Superior endplate Schmorl's node C7 is unchanged. [id number]-hpqaowzo spondylotic change scattered throu ghout. No craniocervical junction unremarkable, predental space widening, or prevertebral soft tissue swelli ng. Degenerative change at the C1 dens articulation. No evident canal compromise by CT. No acute fracture. Trace grade 1 anterolisthesis C3-C4, C4-C5, C5-C6, and C6/C7. Thoracic spine: Vertebral heights are preserved and alignment is maintained. Moderate degenerative disc disease lower thoracic spine. Small superior endplate Schmorl's nodes T10 and T11. Anterior endplate spondylosis T11-T12. Scattered facet arthropathy throughout. Spinal stimulator array centered along the mid thoracic spinal canal. No prevertebral or paravertebra l soft tissue abnormality. Small hiatal hernia but with previous surgery at the GE junction. Hazy dependent atelectasis noted. C holecystectomy clips. Extra renal pelvis bilaterally. Lumbar spine: Patient is status post L3-L4 posterior lumbar fusion with laminectomies from L4 through L5 levels. Hy pertrophic facet arthropathy is present throughout. Vertebral body heights are preserved and alignmen t is maintained. Generator device on the posterior left gluteal region/lower back. IMPRESSION: 1. CERVICAL SPINE: NO ACUTE FRACTURE OF THE CERVICAL SPINE. MODERATE SPINAL UNCHANGED. DEGENERATIVE T RACE GRADE 1 ANTEROLISTHESIS C3 THROUGH C7 LEVELS. 2. THORACIC SPINE: Small superior endplate Schmorl's nodes T10 and T11. Moderate degenerative disc di sease lower thoracic spine. Scattered facet arthropathy. No vertebral compression collapse or malalig nment. Note a small hiatal hernia but with previous surgical change at the GE junction. Correlate as to what prior surgery was performed. Spinal stimulator array. 3. Lumbar spine: Status post L3-L4 posterior lumbar fusion with L4-L5 laminectomies. Hypertrophic fac et arthropathy. No vertebral compression collapse or malalignment.
--- NOTE | 2023-08-01 13:45 | P.PN ---
Subjective Progress Note Date: 08/01/23 Hospital Course: 73-year-old female with history of hemorrhagic stroke 20 years ago, hypertensi on, back stimulator presenting with sudden vision loss. She claims that she has chronic left lower extremity weakness, but has been noticing persistent bilateral leg weakness over the last couple of weeks. Prior to coming to the hospital, she had acute right vision loss for about 15 minutes, now back to normal. She is also been complaining of new frontal headaches as well as poor sleep. Vital signs within normal limits. Laboratory workup shows slight hyponatremia at 125, BUN 29, creatinine 0.92. CT head did not show any acute process. Neurology consulted. Carotid Doppler shows 50-69% stenosis of right carotid bifurcation, less than 50% stenosis of the left carotid bifurcation. CTA head and neck shows no carotid or vertebral artery stenosis, cervical, thoracic, lumbar spine CT does not show any acute fractures. Patient does have low normal vitamin B12, started on B12 supplements. Subjective: Patient seen and examined at bedside. No acute events overnight. No other episodes of vision loss. Pertinent positives and negatives as discussed above, a complete review of systems was performed and all other systems are negative. Vitals Signs Reviewed. General: nontoxic, no distress, appears at stated age Derm: warm, dry Head: atraumatic, normocephalic, symmetric Eyes: EOMI, no lid lag, anicteric sclera Mouth: no lip lesion, mucus membranes moist Cardiovascular: S1S2 reg, no murmur Lungs: CTA bilateral, no rhonchi, no rales , no accessory muscle use Abdominal: soft, nontender to palpation, no guarding, no appreciable organomegaly Ext: no gross muscle atrophy, no edema, no contractures Neuro: CN II-XI grossly intact, left lower extremity weakness, chronic Psych: Alert, oriented, appropriate affect Data Reviewed Today: Pertinent Labs: Sodium 127, BUN 17, creatinine 0.77 Imaging: CTA head and neck shows no carotid or vertebral artery stenosis, cervical, thoracic, lumbar spine CT does not show any acute fractures Assessment and Plan: Sudden onset right-sided visual loss Amaurosis fugax Frontal headaches Lower extremity weakness, acute on chronic Hyponatremia, hypovolemic B12 deficiency Hypertension Fibromyalgia Urinary retention, resolved -Discussed management with neurology, likely discharge tomorrow -On aspirin and statin -ESR normal -Sodium improving with IV fluids, continue, repeat BMP tomorrow -Lower extremity weakness possibly due to hyponatremia as well as low vitamin B12 levels DVT ppx: Subcu heparin Code status: Full code Anticipated discharge place: Home Anticipated discharge time: Tomorrow Objective - Vital Signs Vital signs: Vital Signs Temp 97.8 F 08/01/23 11:55 Pulse 93 08/01/23 11:55 Resp 16 08/01/23 11:55 BP 109/74 08/01/23 11:55 Pulse Ox 98 08/01/23 11:55 FiO2 Intake & Output 07/31/23 08/01/23 08/01/23 18:59 06:59 18:59 Intake Total 600 420 905 Output Total 950 200 800 Balance -350 220 105 Intake: IV 5 Invasive Line 1 5 Intake, IV Titration 300 900 Amount Sodium Chloride 0.9% 1, 300 900 000 ml @ 75 mls/hr IV . [id number] ON LICENSE OF [facility] Rx#:[id number] Oral 600 120 Output: Urine 950 200 800 Other: Voiding Method External Catheter External Catheter External Catheter # Voids 1 1 - Labs CBC & Chem 7: 07/31/23 07:32 08/01/23 06:29 Labs: Abnormal Lab Results - Last 24 Hours (Table) 08/01/23 Range/Units 06:29 Sodium 127 L (137-145) mmol/L Carbon Dioxide 20 L (22-30) mmol/L
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
[2023-08-01] MEDS: PANTOPRAZOLE 40 MG TABLET PO SCH (20:06)
[2023-08-01] MEDS: lisinopriL 10 MG TAB PO SCH (20:06)
[2023-08-01] MEDS: BACLOFEN 10 MG TAB PO SCH (20:06)
[2023-08-01] MEDS: amLODIPine 2.5 MG TAB PO SCH (20:06)
[2023-08-02] MEDS: HYDROcodone/APAP 5-325MG 1 EACH TAB PO PRN ×2 (02:05→08:33)
[2023-08-02] MEDS: ACETAMINOPHEN TAB 325 MG TAB PO PRN (06:42)
[2023-08-02 08:32] LABS: African American GFR (CKD) >90 (>60 ml/min/1.73 sqM); Anion Gap 7 mmol/L; Blood Urea Nitrogen 15 mg/dL (7-17); Calcium 8.6 mg/dL (8.4-10.2); Carbon Dioxide 21 mmol/L (22-30); Chloride 100 mmol/L (98-107); Glucose 87 mg/dL (74-99); Non-African American GFR(CKD) 83 (>60 ml/min/1.73 sqM); Sodium 128 mmol/L (137-145)
[2023-08-02] MEDS: ASPIRIN 81 MG PO SCH (08:32)
[2023-08-02] MEDS: ATORVASTATIN 40 MG TAB PO SCH (08:32)
[2023-08-02] MEDS: CYANOCOBALAMIN 1,000 MCG/ML 1 ML VIAL IM SCH (08:32)
[2023-08-02] MEDS: GABAPENTIN 300 MG CAP PO SCH ×2 (08:36→20:15)
[2023-08-02] MEDS: HEPARIN SODIUM,PORCINE 5,000 UNIT/ML 1 ML VIAL SQ SCH ×3 (08:36→23:56)
[2023-08-02] MEDS: SODIUM CHLORIDE 0.9% 1,000 ML IV SCH (08:42)
[2023-08-02 08:43] LABS: Potassium 4.7 mmol/L (3.5-5.1)
[2023-08-02] MEDS ORDERED: KETOROLAC 15 MG/ML 1 ML VIAL IVP STA (11:30)
[2023-08-02] MEDS ORDERED: diphenhydrAMINE 50 MG/ML 1 ML VIAL IVP STA (11:30)
[2023-08-02] MEDS ORDERED: PROCHLORPERAZINE INJ 10 MG/2 ML VIAL IVP STA (11:30)
[2023-08-02] MEDS: TOPIRAMATE 25 MG TAB PO SCH ×2 (11:31→20:15)
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
--- NOTE | 2023-08-02 17:07 | P.PN ---
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 She claims that she has chronic left lower extremity weakness, but has been noticing persistent bilateral leg weakness over the last couple of weeks. Prior to coming to the hospital, she had acute right vision loss for about 15 minutes, now back to normal. She is also been complaining of new frontal headaches as well as poor sleep. Vital signs within normal limits. Laboratory workup shows slight hyponatremia at 125, BUN 29, creatinine 0.92. CT head did not show any acute process. Neurology consulted. Carotid Doppler shows 50-69% stenosis of right carotid bifurcation, less than 50% stenosis of the left carotid bifurcation. CTA head and neck shows no carotid or vertebral artery stenosis, cervical, thoracic, lumbar spine CT does not show any acute fractures. Patient does have low normal vitamin B12, started on B12 supplements. Physical exam: General: non toxic, no distress, appears at stated age Derm: warm, dry Head: atraumatic, normocephalic, symmetric Eyes: EOMI, no lid lag, anicteric sclera Mouth: no lip lesion, mucus membranes moist Cardiovascular: S1S2 reg, no murmur, positive posterior tibial pulse bilateral, Lungs: CTA bilateral, no rhonchi, no rales , no accessory muscle use Abdominal: soft, nontender to palpation, no guarding, no appreciable organomegaly Ext: no gross muscle atrophy, no edema, no contractures Neuro: CN II-XI grossly intact, no focal neuro deficits Psych: Alert, oriented, appropriate affect Assessment and Plan: Episodic Sudden onset right-sided visual loss Amaurosis fugax Frontal headaches Lower extremity weakness, acute on chronic with severe RLS Acute on Chronic Hyponatremia, hypovolemic B12 deficiency Hypertension Fibromyalgia Urinary retention, resolved -Discussed management with neurologist, he recommending started patient on Top amax and likely discharge tomorrow morning -Continue daily medication regimen with aspirin 81 mg daily, amlodipine 2.5 mg nightly, atorvastatin 40 mg daily, baclofen 20 mg nightly, Neurontin 300 mg da satya and 600 mg nightly, lisinopril 10 mg nightly, Protonix 40 mg nightly, and Requip 1 mg 3 times daily -ESR normal at 8 -Sodium improved with gentle IV fluid hydration. Continue 0.9% NS at 75 mL per hour and repeat BMP tomorrow morning to follow-up and monitor for improvement. -Lower extremity weakness possibly due to hyponatremia as well as low vitamin B12 levels DVT ppx: Subcu heparin Code status: Full code Anticipated discharge place: Home with home care, prescription written for a rolling walker with seat and per case management was sent to medical supply delivery Anticipated discharge time: Tomorrow Patient was seen independently by Nurse Pracitioner. This document was prepared using [employer] dictation software. Please allow for errors in dial polisher, while rare they do occur. Objective - Vital Signs Vital signs: Vital Signs Temp 97.9 F 08/02/23 04:00 Pulse 55 L 08/02/23 04:00 Resp 19 08/02/23 04:00 BP 111/71 08/02/23 04:00 Pulse Ox 97 08/02/23 04:00 FiO2 Intake & Output 08/01/23 08/02/23 08/02/23 18:59 06:59 18:59 Intake Total 1145 Output Total 2050 400 Balance -905 -400 Intake: IV 5 Invasive Line 1 5 Intake, IV Titration 900 Amount Sodium Chloride 0.9% 1, 900 000 ml @ 75 mls/hr IV . [id number] [facility] Rx#:[id number] Oral 240 Output: Urine 2050 400 Other: Voiding Method External Catheter Bedside Commode # Voids 3 - Labs CBC & Chem 7: 07/31/23 07:32 08/02/23 07:11 Labs: Abnormal Lab Results - Last 24 Hours (Table) 08/02/23 Range/Units 07:11 Sodium 128 L (137-145) mmol/L Carbon Dioxide 21 L (22-30) mmol/L
[2023-08-02] MEDS: BACLOFEN 10 MG TAB PO SCH (20:15)
[2023-08-02] MEDS: lisinopriL 10 MG TAB PO SCH (20:15)
[2023-08-02] MEDS: PANTOPRAZOLE 40 MG TABLET PO SCH (20:15)
[2023-08-02] MEDS: amLODIPine 2.5 MG TAB PO SCH (20:15)
[2023-08-03] MEDS: SODIUM CHLORIDE 0.9% 1,000 ML IV SCH ×2 (06:35→09:56)
[2023-08-03] MEDS: TOPIRAMATE 25 MG TAB PO SCH (07:47)
[2023-08-03] MEDS: ATORVASTATIN 40 MG TAB PO SCH (07:47)
[2023-08-03] MEDS: ASPIRIN 81 MG PO SCH (07:47)
[2023-08-03] MEDS: GABAPENTIN 300 MG CAP PO SCH (07:48)
[2023-08-03] MEDS: HEPARIN SODIUM,PORCINE 5,000 UNIT/ML 1 ML VIAL SQ SCH ×2 (07:48→13:28)
[2023-08-03 08:03] VITALS: RESP 16
[2023-08-03] MEDS ORDERED: CYANOCOBALAMIN 500 MCG TAB PO SCH (09:00)
[2023-08-03 09:06] LABS: HCT 37.6 % (34.0-46.0); HGB 12.7 gm/dL (11.4-16.0); MCH 31.7 pg (25.0-35.0); MCHC 33.9 g/dL (31.0-37.0); MCV 93.5 fL (80.0-100.0); Mean Platelet Volume 7.3; Platelet Count 271 k/uL (150-450); RBC 4.03 m/uL (3.80-5.40); WBC 4.4 k/uL (3.8-10.6)
[2023-08-03 09:17] LABS: ALT 22 U/L (4-34); African American GFR (CKD) 87 (>60 ml/min/1.73 sqM); Albumin 3.9 g/dL (3.5-5.0); Anion Gap 10 mmol/L; Blood Urea Nitrogen 13 mg/dL (7-17); Carbon Dioxide 16 mmol/L (22-30); Chloride 106 mmol/L (98-107); Glucose 105 mg/dL (74-99); Non-African American GFR(CKD) 76 (>60 ml/min/1.73 sqM); Sodium 132 mmol/L (137-145); Total Bilirubin 0.6 mg/dL (0.2-1.3); Total Protein 6.8 g/dL (6.3-8.2)
[2023-08-03 09:21] LABS: AST 36 U/L (14-36); Alkaline Phosphatase 56 U/L (38-126); Magnesium 1.8 mg/dL (1.6-2.3); Potassium 4.5 mmol/L (3.5-5.1)
[2023-08-03 11:25] VITALS: BP 127/78; PULSE 65; TEMP 98
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
--- NOTE | 2023-08-03 15:06 | P.DS ---
Providers Date of admission: 07/30/23 16:46 Expected date of discharge: 08/03/23 Attending physician: Leo Silverman MD Consults: 07/30/23 16:38 Consult Physician Routine Consulting Provider: Darinel Earl Consult Reason/Comments: tia Do you want consulting provider notified?: Yes Primary care physician: Hood Mcbride MD Hospital Course: Discharge Diagnosis: Episodic Sudden onset right-sided visual loss, believed to be secondary to ocular migraine. Amaurosis fugax. Frontal headaches, migraine headache Lower extremity weakness, acute on chronic with severe RLS Acute on Chronic Hyponatremia, hypovolemic. Improved sodium 132 at time of discharge. 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 She claims that she has chronic left lower extremity weakness, but has been noticing persistent bilateral leg weakness over the last couple of weeks. Prior to coming to the hospital, patient reported having acute right vision loss for about 15 minutes, now back to normal. She denies any further episodes of visual loss or changes in vision. She is also been complaining of new frontal headaches as well as poor sleep. Vital signs within normal limits. Laboratory workup shows slight hyponatremia at 125, BUN 29, creatinine 0.92. CT head did not show any acute process. Neurology consulted. Carotid Doppler shows 50-69% stenosis of right carotid bifurcation, less than 50% stenosis of the left carotid bifurcation. CTA head and neck shows no carotid or vertebral artery stenosis, cervical, thoracic, lumbar spine CT does not show any acute fractures. Patient does have low normal vitamin B12, started on B12 supplements. Patient was monitored closely. She was provided with a migraine cocktail for persistent headache which resulted in full resolution of headache. Neurology evaluated also started patient on Topamax 50 mg twice daily. She received gentle IV fluid hydration throughout hospitalization resulting in significant improvement of hyponatremia.. Sodium levels at time of discharge 132. Patient reports that prior to coming to the hospital she stopped taking her Celebrex and Wellbutrin SR. This was discussed with patient, recommend continuing to remain off of this medication until follow-up with her PCP as these medications are known to cause hyponatremia. She had no further episodes of headache or changes in vision. Sodium levels again significantly improved after gentle IV fluid hydration. Patient being discharged home at this time. Recommend patient continuing aspirin 81 mg daily, atorvastatin 40 mg daily, vitamin B12 500 g daily, and Topamax 50 mg twice daily. Prescriptions were sent. Patient to follow-up with PCP in 1-2 days and neurologist in 1 week. Physical exam: General: non toxic, no distress, appears at stated age Derm: warm, dry Head: atraumatic, normocephalic, symmetric Eyes: EOMI, no lid lag, anicteric sclera Mouth: no lip lesion, mucus membranes moist Cardiovascular: S1S2 reg, no murmur, positive posterior tibial pulse bilateral, Lungs: CTA bilateral, no rhonchi, no rales , no accessory muscle use Abdominal: soft, nontender to palpation, no guarding, no appreciable organomegaly Ext: no gross muscle atrophy, no edema, no contractures Neuro: CN II-XI grossly intact, no focal neuro deficits Psych: Alert, oriented, appropriate affect A total of 33 minutes of time were spent preparing this complex discharge summary. Pt was discharged on 08/03/23 2:03 PM. Patient was seen independently by Nurse Practitioner. This document was prepared using [employer] dictation software. Please allow for errors in continuous improvement director while rare they do occur. Patient Condition at Discharge: Stable Plan - Discharge Summary New Discharge Prescriptions: New Aspirin 81 mg PO DAILY 30 Days #30 tab Cyanocobalamin [Vitamin B-12] 500 mcg PO DAILY 30 Days #30 tab Atorvastatin [Lipitor] 40 mg PO DAILY 30 Days #30 tab Topiramate [Topamax] 50 mg PO BID 30 Days #120 tab Continue Omeprazole 40 mg PO HS lisinopriL [Prinivil] 10 mg PO HS Gabapentin 300 mg PO DAILY hydrOXYzine HCL [Atarax] 50 mg PO HS PRN PRN Reason: sleep rOPINIRole HCL [Requip XL] 2 mg PO BID amLODIPine [Norvasc] 2.5 mg PO HS Baclofen [Lioresal] 20 mg PO HS FLUoxetine HCL [PROzac] 20 mg PO DIRECTED Gabapentin 600 mg PO HS Ondansetron Odt [Zofran ODT] 4 mg PO Q12HR PRN PRN Reason: Nausea Discontinued buPROPion SR [Wellbutrin SR] 100 mg PO DIRECTED Celecoxib [CeleBREX] 200 mg PO HS Discharge Medication List Omeprazole 40 mg PO HS 08/21/22 [History] amLODIPine [Norvasc] 2.5 mg PO HS 12/25/22 [History] lisinopriL [Prinivil] 10 mg PO HS 12/25/22 [History] Baclofen [Lioresal] 20 mg PO HS 07/30/23 [History] FLUoxetine HCL [PROzac] 20 mg PO DIRECTED 07/30/23 [History] Gabapentin 300 mg PO DAILY 07/30/23 [History] Gabapentin 600 mg PO HS 07/30/23 [History] Ondansetron Odt [Zofran ODT] 4 mg PO Q12HR PRN 07/30/23 [History] hydrOXYzine HCL [Atarax] 50 mg PO HS PRN 07/30/23 [History] rOPINIRole HCL [Requip XL] 2 mg PO BID 07/30/23 [History] Aspirin 81 mg PO DAILY 30 Days #30 tab 08/03/23 [Rx] Atorvastatin [Lipitor] 40 mg PO DAILY 30 Days #30 tab 08/03/23 [Rx] Cyanocobalamin [Vitamin B-12] 500 mcg PO DAILY 30 Days #30 tab 08/03/23 [Rx] Topiramate [Topamax] 50 mg PO BID 30 Days #120 tab 08/03/23 [Rx] Follow up Appointment(s)/Referral(s): Hood Mcbride MD [Primary Care Provider] - 1-2 days (Please call FRIDAY when offices are open to make a post hospital follow up appointment.) Kayleigh Bar MD [Medical Doctor] - 1 Week Patient Instructions/Handouts: Migraine Headache (GEN), Hyponatremia (DC) Activity/Diet/Wound Care/Special Instructions: Activity: As tolerated. Take breaks as needed. Diet: Heart healthy and carb consistent diet. Avoid salts, or foods with hidden salts such as canned or boxed foods and frozen dinners. Extra salt makes your heart work harder and traps the fluid in your body for longer. Special Instructions: Take all of your medications as directed and remember to keep all of your doctor's appointments and follow-up as needed. You reported that you stopped taking Celebrex and Wellbutrin prior to coming to the hospital when you first learned of low sodium levels. Recommend keeping these medications discontinued until further follow-up with your PCP as they are known to cause hyponatremia. Thank you for allowing us to participate in your care, it was truly a pleasure having you for our patient!!! Discharge Disposition: HOME SELF-CARE
== END 2023-08-03 14:26 | disposition home or self-care (01) ==
LOC: EC 09:50 → 3SCARD 16:46
PROVIDERS: ADMIT Internal Medicine; ATTEND Internal Medicine
DX: G45.3 Amaurosis fugax (principal); R53.1 Weakness; G43.909 Migraine, unspecified, not intractable, without status migrainosus; E87.1 Hypo-osmolality and hyponatremia; E86.1 Hypovolemia; E53.8 Deficiency of other specified B group vitamins; I10 Essential (primary) hypertension; M79.7 Fibromyalgia; R33.9 Retention of urine, unspecified; Z86.73 Personal history of transient ischemic attack (TIA), and cerebral infarction without residual deficits; Z79.899 Other long term (current) drug therapy; M19.90 Unspecified osteoarthritis, unspecified site; G89.4 Chronic pain syndrome; M10.9 Gout, unspecified; M81.0 Age-related osteoporosis without current pathological fracture; Z90.49 Acquired absence of other specified parts of digestive tract; Z96.642 Presence of left artificial hip joint; Z98.1 Arthrodesis status; E03.8 Other specified hypothyroidism; I65.23 Occlusion and stenosis of bilateral carotid arteries; Z98.41 Cataract extraction status, right eye; F40.240 Claustrophobia; F41.9 Anxiety disorder, unspecified; F32.A Depression, unspecified; Z87.891 Personal history of nicotine dependence; E66.9 Obesity, unspecified; Z68.30 Body mass index [BMI] 30.0-30.9, adult; Z96.82 Presence of neurostimulator; Z80.8 Family history of malignant neoplasm of other organs or systems
CPT/HCPCS: 96376; 96361 ×5; 96372 ×4; 96375; 96374; 99285; 36415; 93005; 93306; 97162; 97166; 84439; 80061; 80053 ×3; 80048 ×2; 85652; 84443 ×2; 82607; 82550; 82746; 83735 ×2; 84100; 84484; 85025 ×2; 85027; 85610; 85730; 81001; 71046; 93880; 72128; 72125; 72131; 70496; 70450; 70498; G0378 ×5; J2270 ×2; J1200; J0780; J3420 ×2; J1644 ×4; J2405; J1885; Q9967

== ENCOUNTER → 2023-08-06 | Outpatient (CLI) | payer MEDICARE ==
[2023-08-06 21:26] LABS: Blood Urea Nitrogen 18.5 mg/dL (9.0-27.0); Calcium 9.8 mg/dL (8.7-10.3); Carbon Dioxide 20.6 mmol/L (21.6-31.8); Chloride 103 mmol/L (96-109); Glucose 74 mg/dL (70-110); Potassium 4.3 mmol/L (3.5-5.5); Sodium 138 mmol/L (135-145)
== END | disposition home or self-care (01) ==
LOC: LABWHC1 13:34
PROVIDERS: ATTEND Family Medicine
DX: E87.1 Hypo-osmolality and hyponatremia (principal)
CPT/HCPCS: 36415; 80048

== ENCOUNTER 2023-08-29 10:59 | Emergency (ER) | payer MEDICARE ==
[2023-08-29 11:19] VITALS: TEMP 98.1
[2023-08-29] MEDS ORDERED: SODIUM CHLORIDE 0.9% 1,000 ML IV STA (11:29)
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
[2023-08-29 11:52] LABS: Basophils % (A) 0 %; Eosinophils # (A) 0.3 k/uL (0-0.7); Eosinophils % (A) 4 %; HCT 36.9 % (34.0-46.0); HGB 13.1 gm/dL (11.4-16.0); Lymphocytes # (A) 1.2 k/uL (1.0-4.8); Lymphocytes % (A) 19 %; MCH 32.4 pg (25.0-35.0); MCHC 35.6 g/dL (31.0-37.0); MCV 90.8 fL (80.0-100.0); Mean Platelet Volume 7.5; Monocytes # (A) 0.4 k/uL (0-1.0); Monocytes % (A) 6 %; Neutrophils # (A) 4.2 k/uL (1.3-7.7); Neutrophils % (A) 69 %; Platelet Count 241 k/uL (150-450); RBC 4.06 m/uL (3.80-5.40); RDW 13.5 % (11.5-15.5); WBC 6.1 k/uL (3.8-10.6)
[2023-08-29 12:07] LABS: African American GFR (CKD) >90 (>60 ml/min/1.73 sqM); Anion Gap 14 mmol/L; Blood Urea Nitrogen 16 mg/dL (7-17); Calcium 9.4 mg/dL (8.4-10.2); Carbon Dioxide 17 mmol/L (22-30); Chloride 99 mmol/L (98-107); Creatine Kinase 141 U/L (30-135); Glucose 98 mg/dL (74-99); Magnesium 1.8 mg/dL (1.6-2.3); Non-African American GFR(CKD) 88 (>60 ml/min/1.73 sqM); Potassium 3.9 mmol/L (3.5-5.1); Sodium 130 mmol/L (137-145)
--- NOTE | 2023-08-29 12:31 | CT ---
EXAMINATION TYPE: CT brain cspine wo con DATE OF EXAM: 08/29/2023 COMPARISON: Brain 07/30/2023 HISTORY: 73-year-old female with pain after Fall x [address] DLP: 1395.5 mGycm Automated exposure control for dose reduction was used. Technique: Examination of the head was done in axial plane without intravenous contrast. Coronal and sagittal reconstructions performed. CT of the cervical spine was obtained in axial plane without intravenous injection of contrast mater ial. Coronal and sagittal reformatted images were obtained from the axial views for evaluation of f ractures, spinal alignment and canal. FINDINGS: Head: There is no evidence of acute intracranial hemorrhage, acute ischemic changes, mass, mass-effect, or extra-axial fluid collection. There is no effacement of cerebral sulci or basal subarachnoid cister ns. There is no hydrocephalus. There is no midline shift. Salazar-white matter distinction is preserv ed. Leftward nasal septal deviation. Trace mucosal thickening ethmoid air cells. Mild to moderate patchy periventricular white matter hypodensities in both cerebral hemispheres. Cervical spine: No craniocervical junction abnormality, predental space widening, or prevertebral soft tissue swellin g. Degenerative change C1 dens articulation. Scattered facet and uncovertebral joint arthropathy is present. Mild degenerative disc disease throug hout. No acute fracture seen of the cervical spine. Old superior endplate Schmorl's node C7. Alignment is m aintained. Moderate degenerative change right TMJ. Sagittal and coronal reformatted images confirm above findings. COMBINED IMPRESSION: 1. No acute intracranial abnormality seen. 2. No acute fracture or malalignment of the cervical spine. Mild to moderate spondylotic change.
[2023-08-29 13:08] VITALS: BP 128/58; PULSE 77; RESP 18
== END 2023-08-29 13:07 | disposition home or self-care (01) ==
LOC: EC 10:59
DX: R53.1 Weakness (principal); E87.20 Acidosis, unspecified; I10 Essential (primary) hypertension; K21.9 Gastro-esophageal reflux disease without esophagitis; F32.A Depression, unspecified; F41.9 Anxiety disorder, unspecified; Z79.899 Other long term (current) drug therapy; Z87.891 Personal history of nicotine dependence; Z86.73 Personal history of transient ischemic attack (TIA), and cerebral infarction without residual deficits; Z90.49 Acquired absence of other specified parts of digestive tract; W19.XXXA Unspecified fall, initial encounter
CPT/HCPCS: 36415; 70450; 72125; 80048; 82550; 83605; 83735; 85025; 96360; 99285

== ENCOUNTER → 2023-09-16 | Outpatient (CLI) | payer MEDICARE ==
--- NOTE | 2023-10-30 11:38 | P.CEMON ---
30 DAY EVENT MONITOR REPORT: INDICATION: Cerebrovascular accident. START DATE: 09/16/2023 END DATE: 10/15/2023 Patient wore the monitor for 26 days which is 89% of total time. FINDINGS: Overall [good] quality study. Patient's baseline rhythm was [normal sinus rhythm]. Baseline heart rate was 79 beats per minute. Maximum Heart Rate: 133 BPM Minimum Heart Rate: 55 BPM There were no observed atrial fibrillation, atrial flutter. There were no observed sinus pauses which were more than 2 second long. There were few supraventricular couplets and PACs. There were a few paroxysmal atrial tachycardia runs which were less than 1 minute. Patient symptoms correlation: Patient triggered events corresponded to normal sinus rhythm. Lucio Crouch MD, R[facility] Cardiovascular Disease
== END | disposition home or self-care (01) ==
LOC: RADECHMAIN 07:49
PROVIDERS: ATTEND Psychiatry & Neurology Vascular Neurology
DX: I63.9 Cerebral infarction, unspecified (principal); I47.9 Paroxysmal tachycardia, unspecified
CPT/HCPCS: 93270

== ENCOUNTER → 2023-09-19 | Outpatient (CLI) | payer MEDICARE ==
[2023-09-19 15:58] LABS: Appearance,Urine Clear (Clear); Bilirubin,Urine Negative (Negative); Blood,Urine Negative (Negative); Color,Urine Yellow (Yellow); Ketones,Urine Negative (Negative); Nitrite,Urine Positive (Negative); PH, Urine 6.5; Specific Gravity,Urine 1.012 (1.001-1.030)
[2023-09-19 16:01] LABS: Bacteria,Urine 3+ (None Seen)
[2023-09-19 16:05] LABS: % Iron Saturation 14.85 (12.00-45.00); ALT 24 U/L (8-44); AST 23 U/L (13-35); Albumin 4.6 d/dL (3.8-4.9); Alkaline Phosphatase 103 U/L (41-126); BUN/Creat Ratio 13.62 Ratio (12.00-20.00); Blood Urea Nitrogen 10.9 mg/dL (9.0-27.0); Calcium 9.6 mg/dL (8.7-10.3); Carbon Dioxide 21.4 mmol/L (21.6-31.8); Chloride 96 mmol/L (96-109); Ferritin 64.7 ng/mL (10.0-291.0); Globulin 2.7 d/dL (1.6-3.3); Glucose 95 mg/dL (70-110); Iron 56 UG/DL (50-170); Potassium 4.2 mmol/L (3.5-5.5); Sodium 131 mmol/L (135-145); Total Bilirubin 0.5 mg/dL (0.3-1.2); Total Iron Binding Capacity 377 UG/DL (228-460); Total Protein 7.3 d/dL (6.2-8.2)
[2023-09-19 16:06] LABS: Basophils # (A) 0.03 X 10*3/uL (0.00-0.10); Basophils % (A) 0.5 %; Eosinophils # (A) 0.26 X 10*3/uL (0.04-0.35); Eosinophils % (A) 4.2 %; HCT 36.4 % (37.2-46.3); HGB 12.8 d/dL (12.0-15.0); Lymphocytes % (A) 17.7 %; MCH 31.2 pg (27.0-32.0); MCHC 35.2 d/dL (32.0-37.0); MCV 88.8 FL (80.0-97.0); Mean Platelet Volume 9.7 FL (9.5-12.2); Monocytes # (A) 0.44 X 10*3/uL (0.20-1.00); Monocytes % (A) 7.1 %; NRBC Per 100 WBC 0 X 10*3/uL (0.00-0.01); Neutrophils # (A) 4.36 X 10*3/uL (1.80-7.70); Platelet Count 289 X 10*3/uL (140-440); RDW 13.3 % (11.5-14.5); WBC 6.22 X 10*3/uL (4.50-10.00)
== END | disposition home or self-care (01) ==
LOC: LABWHC1 10:20
PROVIDERS: ATTEND Internal Medicine Nephrology
DX: E87.1 Hypo-osmolality and hyponatremia (principal); D64.9 Anemia, unspecified; N39.0 Urinary tract infection, site not specified
CPT/HCPCS: 36415; 80053; 81001; 82728; 83540; 83550; 83930; 83935; 85025

== ENCOUNTER → 2023-09-24 | Outpatient (CLI) | payer MEDICARE ==
--- NOTE | 2023-09-24 15:33 | US ---
EXAMINATION TYPE: US kidneys/renal and bladder DATE OF EXAM: 09/24/2023 COMPARISON: NONE CLINICAL INDICATION: Female, 73 years old with history of E87.1 HYPO-OSMOLALITY AND HYPONATREMIA; Pat ient not symptomatic EXAM MEASUREMENTS: Right Kidney: 9.7 x 3.8 x 5.0 cm Left Kidney: 10.7 x 5.2 x 4.7 cm limited visualization due to limited mobility of patient There is mild bilateral pelvicaliectasis. Bladder: No gross abnormality. Bilateral Jets seen: No IMPRESSION: Mild bilateral pelvicaliectasis. Unable to exclude early hydronephrosis. Recommend short interval fol low-up ultrasound to reassess and also following up the patient's kidney function.
== END | disposition home or self-care (01) ==
LOC: RADUSWWP 13:35
PROVIDERS: ATTEND Family Medicine
DX: E87.1 Hypo-osmolality and hyponatremia (principal); N28.89 Other specified disorders of kidney and ureter
CPT/HCPCS: 76770

== ENCOUNTER 2024-09-28 13:42 | Emergency (ER) | payer MEDICARE ==
[2024-09-28 13:49] VITALS: TEMP 97.5
[2024-09-28 14:04] LABS: Basophils % (A) 1 %; Eosinophils # (A) 0.3 k/uL (0-0.7); Eosinophils % (A) 5 %; HCT 38.6 % (34.0-46.0); HGB 12.5 gm/dL (11.4-16.0); Lymphocytes # (A) 1.4 k/uL (1.0-4.8); Lymphocytes % (A) 22 %; MCH 29.9 pg (25.0-35.0); MCHC 32.4 g/dL (31.0-37.0); MCV 92.3 fL (80.0-100.0); Monocytes # (A) 0.3 k/uL (0-1.0); Monocytes % (A) 5 %; Neutrophils % (A) 66 %; Platelet Count 254 k/uL (150-450); RBC 4.19 m/uL (3.80-5.40); RDW 14.4 % (11.5-15.5); WBC 6.1 k/uL (3.8-10.6)
[2024-09-28 14:14] LABS: INR 0.9 (<1.2); Prothrombin Time 10.2 sec (10.0-12.5)
[2024-09-28 14:28] LABS: ALT 23 U/L (4-34); AST 33 U/L (14-36); African American GFR (CKD) 85 (>60 ml/min/1.73 sqM); Albumin 4.5 g/dL (3.5-5.0); Alkaline Phosphatase 146 U/L (38-126); Anion Gap 6 mmol/L; Blood Urea Nitrogen 23 mg/dL (7-17); Calcium 8.9 mg/dL (8.4-10.2); Carbon Dioxide 26 mmol/L (22-30); Chloride 105 mmol/L (98-107); Glucose 113 mg/dL (74-99); Non-African American GFR(CKD) 74 (>60 ml/min/1.73 sqM); Sodium 137 mmol/L (137-145); Total Bilirubin 0.6 mg/dL (0.2-1.3); Total Protein 7.7 g/dL (6.3-8.2)
--- NOTE | 2024-09-28 15:10 | CT ---
EXAMINATION TYPE: CT brain wo con DATE OF EXAM: 09/28/2024 3:02 PM COMPARISON: Previous CT brain study 08/29/2023. CLINICAL INDICATION: Female, 74 years old with history of dizziness hx cva left side weakness, DIZZY TECHNIQUE: Brain: Axial CT images of the brain were obtained with coronal and sagittal reformats created and rev iewed. Contrast used: None. Oral contrast used: None. CT DLP: 1192.4 mGycm, Automated exposure control for dose reduction was used. FINDINGS: Brain: No acute intracranial hemorrhage, significant midline shift or evidence of mass effect. Ventricles an d sulci mildly prominent compatible with generalized cerebral volume loss, similar to most recent yaritza or study dated 08/29/2023. Basal cisterns appear patent. No significant extra-axial fluid collection. Salazar-white matter differentiation appears acutely maintained. Patchy periventricular and subcortical white matter hypoattenuation likely reflecting moderate burden of chronic microvascular ischemic dis ease. Old left-sided cerebellar infarct again visualized. No acute fracture. Previous cataract lens extract ion noted bilaterally. Mastoid air cells and paranasal sinuses appear patent. IMPRESSION: 1. No acute intracranial abnormality identified. 2. Findings compatible with moderate burden of white matter chronic microvascular ischemia [facility], Workstation: [email or web address], 09/28/2024 3:08 PM
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
[2024-09-28 16:04] VITALS: RESP 16
[2024-09-28 16:08] LABS: Appearance,Urine Cloudy (Clear); Bilirubin,Urine Negative (Negative); Blood,Urine Negative (Negative); Color,Urine Yellow; Glucose,Urine (UA) Negative (Negative); Ketones,Urine Negative (Negative); Leukocyte Esterase,Urine Large (Negative); Mucus,Urine Few /hpf; Nitrite,Urine Negative (Negative); PH, Urine 5.5 (5.0-8.0); Protein,Urine Trace (Negative); RBC,Urine 25 /hpf (0-5); Specific Gravity,Urine 1.027 (1.001-1.035); Squamous Epithelial Cell,Urine 10 /hpf (0-4); WBC,Urine 31 /hpf (0-5)
[2024-09-28] MEDS: MECLIZINE 12.5 MG TAB PO STA (16:42)
[2024-09-28] MEDS: SODIUM CHLORIDE 0.9% 500 ML 500 ML IV STA (16:42)
[2024-09-28] MEDS: ONDANSETRON 4 MG/2 ML VIAL IVP STA (16:42)
[2024-09-28] MEDS: MUPIROCIN 2% OINT 22 GM TUBE TOPICAL STA (16:55)
[2024-09-28] MEDS: ASPIRIN 81 MG PO STA (17:17)
[2024-09-28 17:30] VITALS: BP 149/86; PULSE 82
== END 2024-09-28 17:32 | disposition home or self-care (01) ==
LOC: EC 13:42
DX: G45.9 Transient cerebral ischemic attack, unspecified (principal); R42 Dizziness and giddiness; R53.1 Weakness; Z87.891 Personal history of nicotine dependence; Z90.49 Acquired absence of other specified parts of digestive tract
CPT/HCPCS: 99284 ×2; 96374 ×2; 96361 ×2; 36415; 93005; 80053; 84484; 85025; 85610; 81001; 70450; J2405

== ENCOUNTER 2024-12-15 14:08 | Emergency (ER) | payer MEDICARE ==
[2024-12-15 14:12] VITALS: PULSE 89; TEMP 97.6
[2024-12-15 15:03] LABS: Basophils % (A) 0 %; Eosinophils # (A) 0.2 k/uL (0-0.7); Eosinophils % (A) 2 %; HGB 12.4 gm/dL (11.4-16.0); Lymphocytes # (A) 1.1 k/uL (1.0-4.8); Lymphocytes % (A) 15 %; MCH 28.8 pg (25.0-35.0); MCHC 32.7 g/dL (31.0-37.0); MCV 88.2 fL (80.0-100.0); Mean Platelet Volume 7.3; Monocytes # (A) 0.5 k/uL (0-1.0); Monocytes % (A) 7 %; Neutrophils # (A) 5.4 k/uL (1.3-7.7); Neutrophils % (A) 75 %; Platelet Count 314 k/uL (150-450); RBC 4.31 m/uL (3.80-5.40); RDW 13.3 % (11.5-15.5); WBC 7.3 k/uL (3.8-10.6)
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
[2024-12-15] MEDS: PROCHLORPERAZINE INJ 10 MG/2 ML VIAL IVP STA (15:15)
[2024-12-15] MEDS: SODIUM CHLORIDE 0.9% 1,000 ML IV STA (15:15)
[2024-12-15 15:16] LABS: ALT 27 U/L (4-34); African American GFR (CKD) 86 (>60 ml/min/1.73 sqM); Anion Gap 10 mmol/L; Blood Urea Nitrogen 21 mg/dL (7-17); Calcium 9.6 mg/dL (8.4-10.2); Carbon Dioxide 25 mmol/L (22-30); Chloride 95 mmol/L (98-107); Glucose 101 mg/dL (74-99); Lipase 144 U/L (23-300); Non-African American GFR(CKD) 74 (>60 ml/min/1.73 sqM); Sodium 130 mmol/L (137-145)
[2024-12-15 15:19] LABS: Potassium 5.4 mmol/L (3.5-5.1)
[2024-12-15 15:20] LABS: AST 41 U/L (14-36); Albumin 4.7 g/dL (3.5-5.0); Alkaline Phosphatase 135 U/L (38-126); Magnesium 1.9 mg/dL (1.6-2.3); Total Bilirubin 1.2 mg/dL (0.2-1.3)
--- NOTE | 2024-12-15 15:27 | CT ---
EXAMINATION TYPE: CT abdomen pelvis wo con DATE OF EXAM: 12/15/2024 COMPARISON: 11/08/2021 CLINICAL INDICATION: Female, 74 years old with history of pain; PHH, Abdominal pain. n/v x 2 weeks, n o bowel movement x 4 days TECHNIQUE: CT scan of the abdomen and pelvis is performed without oral or IV contrast. CT DLP: 723.[address] CTDI: mGy Automated exposure control for dose reduction was used. FINDINGS: Within the limitations of a non-contrast study, the following observations are made. There is a 5 mm nodule in the right lung base and a 6 mm nodule in the left lung base. If this is a h igh risk patient and CT thorax is recommended to evaluate the lung parenchyma in its entirety. There is a large hiatal hernia and postsurgical changes at the junction. There is surgical absence of the gallbladder. There is no organomegaly involving the solid visceral organs of the upper abdomen There is no renal calcification or hydronephrosis. The caliber of the abdominal aorta is normal. There is no retroperitoneal adenopathy. The bowel loops are normal in caliber and is no obstruction. There is no free intraperitoneal air or fluid. No inflammatory changes are identified within the abdomen or pelvis. Evaluation of pelvis is limited due to metallic artifact from patient's left hip prosthesis and post operative changes involving the left hemipelvis. There are no focal destructive osseous lesions. Ther e are post surgical changes of fusion in the lower lumbar spine. IMPRESSION: 1. Single bilateral small lung nodules as described above. See above recommendations. 2. Surgical absence of the gallbladder. 3. No acute changes within the abdomen or pelvis. 4. Large hiatal hernia and postsurgical changes at the GE junction. [facility], Workstation: [email or web address], 12/15/2024 3:25 PM
[2024-12-15 17:13] LABS: Appearance,Urine Clear (Clear); Bilirubin,Urine Negative (Negative); Blood,Urine Negative (Negative); Budding Yeast,Urine Few /hpf; Color,Urine Colorless; Glucose,Urine (UA) Negative (Negative); Ketones,Urine Negative (Negative); Leukocyte Esterase,Urine Moderate (Negative); Mucus,Urine Rare /hpf; Nitrite,Urine Negative (Negative); Protein,Urine Trace (Negative); RBC,Urine 2 /hpf (0-5); Specific Gravity,Urine 1.013 (1.001-1.035); Urobilinogen,Urine <2.0 mg/dL (<2.0); WBC,Urine 64 /hpf (0-5)
[2024-12-15 17:15] VITALS: BP 124/76; RESP 18
== END 2024-12-15 17:22 | disposition home or self-care (01) ==
LOC: EC 14:08
DX: R11.2 Nausea with vomiting, unspecified (principal); R10.9 Unspecified abdominal pain; Z87.891 Personal history of nicotine dependence; Z86.73 Personal history of transient ischemic attack (TIA), and cerebral infarction without residual deficits
CPT/HCPCS: 36415; 80053; 83605; 83690; 83735; 85025; 81001; 74176; 99284; 96374; 96361 ×2; J0780

== ENCOUNTER → 2025-01-31 | Outpatient (CLI) | payer MEDICARE ==
[2025-01-31 14:57] LABS: Basophils # (A) 0.03 X 10*3/uL (0.00-0.10); Basophils % (A) 0.5 %; Eosinophils # (A) 0.18 X 10*3/uL (0.04-0.35); HCT 36.7 % (37.2-46.3); HGB 11.9 g/dL (12.0-15.0); Lymphocytes # (A) 1.76 X 10*3/uL (0.90-5.00); Lymphocytes % (A) 28.9 %; MCH 28.3 pg (27.0-32.0); MCHC 32.4 g/dL (32.0-37.0); MCV 87.2 FL (80.0-97.0); Mean Platelet Volume 9.7 FL (9.5-12.2); Monocytes # (A) 0.35 X 10*3/uL (0.20-1.00); Monocytes % (A) 5.7 %; NRBC Per 100 WBC 0 X 10*3/uL (0.00-0.01); Neutrophils # (A) 3.75 X 10*3/uL (1.80-7.70); Neutrophils % (A) 61.6 %; Platelet Count 304 X 10*3/uL (140-440); RBC 4.21 X 10*6/uL (4.10-5.20); RDW 13.9 % (11.5-14.5); WBC 6.09 X 10*3/uL (4.50-10.00)
[2025-01-31 15:18] LABS: ALT 28 U/L (8-44); AST 36 U/L (13-35); Albumin 4.7 g/dL (3.8-4.9); Albumin/Globulin Ratio 1.47 Ratio (1.60-3.17); Alkaline Phosphatase 180 U/L (41-126); BUN/Creat Ratio 19.25 Ratio (12.00-20.00); Blood Urea Nitrogen 15.4 mg/dL (9.0-27.0); Calcium 9.6 mg/dL (8.7-10.3); Carbon Dioxide 22.1 mmol/L (21.6-31.8); Chloride 102 mmol/L (96-109); Globulin 3.2 g/dL (1.6-3.3); Glucose 110 mg/dL (70-110); Potassium 4.4 mmol/L (3.5-5.5); Sodium 137 mmol/L (135-145); Total Bilirubin 0.4 mg/dL (0.3-1.2); Total Protein 7.9 g/dL (6.2-8.2)
[2025-01-31 16:29] LABS: HIV 2 AB Non-Reactive (Non-Reactive); HIV AB P24 Non-Reactive (Non-Reactive); HIV P24 AG Non-Reactive (Non-Reactive)
[2025-02-01 13:24] LABS: Zinc, Serum 79 ug/dL (60-130)
== END | disposition home or self-care (01) ==
LOC: LABWHC1 12:26
PROVIDERS: ATTEND Family Medicine
DX: G62.9 Polyneuropathy, unspecified (principal)
CPT/HCPCS: 36415; 80053; 82306; 82525; 82607; 83036; 83735; 84443; 84630; 85025; 86780; 87390

== ENCOUNTER 2025-03-09 12:51 | Emergency (ER) | payer MEDICARE ==
[2025-03-09 13:06] VITALS: RESP 18
[2025-03-09 14:16] LABS: Basophils # (A) 0.04 10*3/uL (0.00-0.10); Basophils % (A) 0.6 %; Eosinophils # (A) 0.29 10*3/uL (0.04-0.35); Eosinophils % (A) 4.2 %; HCT 34.5 % (37.2-46.3); HGB 11.6 g/dL (12.0-15.0); Lymphocytes # (A) 1.63 10*3/uL (0.90-5.00); Lymphocytes % (A) 23.6 %; MCH 28.9 pg (27.0-32.0); MCHC 33.6 g/dL (32.0-37.0); MCV 85.8 fL (80.0-97.0); Mean Platelet Volume 8.6 fL (9.5-12.2); Monocytes # (A) 0.49 10*3/uL (0.20-1.00); Monocytes % (A) 7.1 %; Neutrophils # (A) 4.44 10*3/uL (1.80-7.70); Neutrophils % (A) 64.2 %; Platelet Count 304 10*3/uL (140-440); RBC 4.02 10*6/uL (4.10-5.20); RDW 14.4 % (11.5-14.5); WBC 6.91 10*3/uL (4.50-10.00)
[2025-03-09 14:54] LABS: Appearance,Urine Clear (Clear); Bilirubin,Urine Negative (Negative); Blood,Urine Trace (Negative); Color,Urine Colorless; Glucose,Urine (UA) Negative (Negative); Ketones,Urine Negative (Negative); Leukocyte Esterase,Urine Trace (Negative); Nitrite,Urine Negative (Negative); Protein,Urine Negative (Negative); RBC,Urine 2 /hpf (0-5); Specific Gravity,Urine 1.017 (1.001-1.035); Urobilinogen,Urine <2.0 mg/dL (<2.0); WBC,Urine 13 /hpf (0-5)
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
[2025-03-09 15:29] LABS: ALT 22 U/L (4-34); AST 29 U/L (14-36); African American GFR (CKD) >90 (>60 ml/min/1.73 sqM); Albumin 4.7 g/dL (3.5-5.0); Alkaline Phosphatase 157 U/L (38-126); Amylase 85 U/L (30-110); Anion Gap 11 mmol/L; Blood Urea Nitrogen 16 mg/dL (7-17); Calcium 9.7 mg/dL (8.4-10.2); Carbon Dioxide 25 mmol/L (22-30); Chloride 98 mmol/L (98-107); Glucose 95 mg/dL (74-99); Lipase 145 U/L (23-300); Non-African American GFR(CKD) 84 (>60 ml/min/1.73 sqM); Potassium 4.1 mmol/L (3.5-5.1); Sodium 134 mmol/L (137-145); Total Bilirubin 0.6 mg/dL (0.2-1.3); Total Protein 7.8 g/dL (6.3-8.2)
--- NOTE | 2025-03-09 16:15 | CT ---
EXAMINATION TYPE: CT brain [facility] DATE OF EXAM: 03/09/2025 COMPARISON: 08/29/2023 CLINICAL INDICATION: Female, 74 years old with history of ruq pain; PHH, CHAPMAN. Dizziness. TECHNIQUE: CT scan of the head and cervical spine are performed without contrast. CT DLP: [address] CTDI: mGy Automated exposure control for dose reduction was used. Findings: Head CT: Ventricles, basal cisterns and sulci over convexities are moderately enlarged consistent with moderat e age-appropriate atrophy. There is moderate diffuse decreased density in the periventricular white m atter consistent with moderate chronic ischemic white matter demyelination. There is no acute intra or extra-axial hemorrhage. Posterior fossa including the brainstem, fourth ventricle and cerebellar pontine angles are grossly n ormal. The intraorbital contents appear normal and symmetric. Visualized paranasal sinuses are well aerated. CT cervical spine: Craniovertebral junction relationships and prevertebral soft tissues are normal. The cervical vertebral segments are normal in height and alignment and there is no fracture subluxati on. The disc spaces are well-maintained in height and there is no significant degenerative disc disease. There is mild facet arthropathy in the mid and lower cervical spine. The uncovertebral joints are int act.. The paraspinal soft tissues unremarkable. IMPRESSION: 1. Head CT: No acute bleed or mass effect.. Moderate senescent changes as described above. 2. CT cervical spine: No acute trauma. Mild facet arthropathy [facility], Workstation: [email or web address], 03/09/2025 4:12 PM
--- NOTE | 2025-03-09 16:19 | CT ---
EXAMINATION TYPE: CT abdomen pelvis w con DATE OF EXAM: 03/09/2025 COMPARISON: 12/15/2024 CLINICAL INDICATION: Female, 74 years old with history of ruq pain; PHH, RUQ abdominal pain. TECHNIQUE: Performed without Oral Contrast and with IV Contrast, patient injected with 100 ml mL of Isovue 300. CT DLP: 1198.[address] CTDI: mGy Automated exposure control for dose reduction was used. FINDINGS: There are a few scattered small stable micronodules. There are postsurgical changes at the GE junctio n and a small to moderate hiatal hernia. There is surgical absence of the gallbladder. There is no biliary ductal dilatation. There is no focal mass or organomegaly involving the liver, pancreas, spleen or adrenal glands. There is no solid renal mass or hydronephrosis and there is homogeneous contrast enhancement of the r enal parenchyma. The caliber the abdominal aorta is normal is no retroperitoneal adenopathy or hemorr mihir. The bowel loops are normal in caliber and there is no evidence of dilatation or obstruction. No infla mmatory changes are identified in the bowel wall or mesentery. There is moderate diverticulosis but n o acute diverticulitis. There is no free intraperitoneal air or fluid. No pelvic mass, free fluid, abscess or adenopathy. There is laminectomy and fusion in lower lumbar spine and left hip prosthesis. IMPRESSION: 1. Postsurgical changes at the GE junction with small to moderate hiatal hernia. 2. No acute changes within the abdomen or pelvis. [facility], Workstation: [email or web address], 03/09/2025 4:16 PM
[2025-03-09] MEDS: LIDOCAINE 4% PATCH TOPICAL STA (17:14)
[2025-03-09 17:28] VITALS: BP 128/83; PULSE 85; TEMP 98
== END 2025-03-09 17:27 | disposition home or self-care (01) ==
LOC: EC 12:51
DX: R10.11 Right upper quadrant pain (principal); M79.10 Myalgia, unspecified site; Z86.73 Personal history of transient ischemic attack (TIA), and cerebral infarction without residual deficits; Z87.891 Personal history of nicotine dependence
CPT/HCPCS: 36415; 93005; 80053; 82150; 83690; 85025; 81001; 72125; 70450; 74177; 99284; Q9967